=== PATIENT | male | born 1950 | race American Indian/Alaskan Native ===

== ENCOUNTER 2017-07-05 08:08 | Inpatient (IN) | payer MEDICARE ==
[2017-07-05 08:18] VITALS: BMI 20.5
[2017-07-05] MEDS ORDERED: Iohexol 240 (50 ml) PO STA (08:34)
[2017-07-05] MEDS ORDERED: Sodium Chloride 0.9% 1,000 ML IV ONE (08:34)
[2017-07-05] MEDS ORDERED: Iohexol 240 (50 ml) ONE (09:07)
[2017-07-05] MEDS ORDERED: Morphine 4 MG/ML VIAL ONE ×2 (09:08→16:40)
[2017-07-05] MEDS ORDERED: Sodium Chloride 0.9% 1,000 ML ONE (09:08)
[2017-07-05 09:10] LABS: BASO # 0.1 K/uL (0.0-0.2); BASO % 0.9 % (0.0-2.0); EOS % 0.3 % (0.0-4.0); HEMATOCRIT 25.8 % (35.0-51.0); LYMPH # 0.5 K/uL (1.0-4.3); LYMPH % 7.3 % (20.0-40.0); MEAN CELL VOLUME 79.9 fL (80.0-94.0); MEAN CORPUSCULAR HEMOGLOBIN 26.3 pg (27.0-31.0); MEAN CORPUSCULAR HGB CONC 32.9 g/dL (33.0-37.0); MONO # 0.2 K/uL (0.0-0.8); MONO % 3.1 % (0.0-10.0); PLATELET COUNT 391 K/uL (130-400); RED CELL DISTRIBUTION WIDTH 18.5 % (11.5-14.5); WHITE BLOOD COUNT 7.1 K/uL (4.8-10.8)
[2017-07-05 09:10] LABS: RBC URINE 1 /hpf (0-3); URINE BACTERIA RARE (<OCC); URINE BILIRUBIN NEGATIVE (NEGATIVE); URINE BLOOD NEGATIVE (NEGATIVE); URINE COLOR Yellow (YELLOW); URINE GLUCOSE (UA) NORMAL (Normal); URINE KETONE TRACE mg/dL (NEGATIVE); URINE LEUKOCYTE ESTERASE NEG Leu/uL (Negative); URINE PROTEIN NEGATIVE (NEGATIVE); URINE UROBILINOGEN NORMAL mg/dL (0.2-1.0); WBC URINE 1 /hpf (0-5)
[2017-07-05 09:23] LABS: ALKALINE PHOSPHATASE 62 U/L (38-126); ALT/SGPT 31 U/L (21-72); AST/SGOT 16 U/L (17-59); BILIRUBIN,TOTAL 0.6 mg/dL (0.2-1.3); BLOOD UREA NITROGEN 17 mg/dL (9-20); CALCIUM 8.1 mg/dl (8.6-10.4); CARBON DIOXIDE 26 mmol/L (22-30); CHLORIDE 106 mmol/L (98-107); GFR AFRICAN-AMERICAN > 60; GLUCOSE,RANDOM 76 mg/dL (75-110); POTASSIUM 3.7 mmol/L (3.6-5.2); SODIUM 140 mmol/L (132-148); TOTAL PROTEIN 5.8 g/dL (6.3-8.3)
[2017-07-05 10:01] LABS: ALB/GLOB RATIO 1.2 (1.0-2.1)
--- NOTE | 2017-07-05 10:13 | C.PDOC ---
History Of Present Illness 66-year-old male, presents to the emergency department with complaints of increasing abdominal pain over the past week, that is associated with mild nausea. Patient notes he has not taken his blood pressure meds in over two weeks. States he was seen in [facility] for same complaint last week but results are unknown. He denies vomiting, blood in urine or stool, pain with [id number] movement , fevers, or any other associated symptoms. Denies alcohol or drug use. No other complaints at this time. Chief Complaint (Nursing): Abdominal Pain History Per: Patient History/Exam Limitations: no limitations Onset/Duration Of Symptoms: Days Current Symptoms Are (Timing): Still Present Severity: Moderate Past Medical History Reviewed: Historical Data, Nursing Documentation, Vital Signs Vital Signs: Last Vital Signs Temp 98 F 07/05/17 17:31 Pulse 77 07/05/17 17:31 Resp 18 07/05/17 17:31 BP 168/100 H 07/05/17 17:31 Pulse Ox 96 07/05/17 17:31 - Medical History PMH: HTN Family History: States: No Known Family Hx - Social History Hx Alcohol Use: Yes Hx Substance Use: Yes - Immunization History Hx Tetanus Toxoid Vaccination: No Hx Influenza Vaccination: No Hx Pneumococcal Vaccination: No Review Of Systems Except As Marked, All Systems Reviewed And Found Negative. Constitutional: Negative for: Fever, Chills Cardiovascular: Negative for: Chest Pain Respiratory: Negative for: Shortness of Breath Gastrointestinal: Positive for: Nausea, Abdominal Pain. Negative for: Vomiting , Diarrhea, Hematochezia, Hematemesis Genitourinary: Negative for: Hematuria Musculoskeletal: Negative for: Back Pain Physical Exam - Physical Exam Appears: Non-toxic, No Acute Distress Skin: Warm, Dry, No Rash Head: Atraumatic, Normacephalic Eye(s): bilateral: Normal Inspection Nose: Normal Oral Mucosa: Moist Lips: Normal Appearing Neck: Normal ROM Chest: Symmetrical Cardiovascular: Rhythm Regular, No Murmur Respiratory: Normal Breath Sounds, No Accessory Muscle Use Gastrointestinal/Abdominal: Bowel Sounds (Hyperactive), Soft, Tenderness (Left greater than right), No Guarding, No Rebound, Other (midline surgical scar, and left lower quadrant surgical scar, unknown surgeries) Extremity: Normal ROM Neurological/Psych: Oriented x3, Normal Speech ED Course And Treatment - Laboratory Results Result Diagrams: 07/05/17 09:05 07/05/17 09:05 O2 Sat by Pulse Oximetry: 97 (on RA) Pulse Ox Interpretation: Normal - CT Scan/US Abdo/Pelvis CT Other Rad Studies (CT/US): Interpreted By Me, Read By Radiologist, Radiology Report Reviewed CT/US Interpretation: IMPRESSION: Segmental severe right colon wall thickening noted at the splenic flexure and proximal descending colon consistent with colitis. The differential diagnosis includes infection inflammatory or ischemic colitis. Moderately dilated small bowel loops at the left abdomen and partially collapsed small bowel loops at the right abdomen. The oral contrast seen in the small bowel at the left abdomen and in the descending colon. The possibility of small to large bowel fistula is not totally excluded. Correlation with prior study and prior surgical history is suggested. Mildly dilated biliary tree and main pancreatic duct noted. Fullness noted at the pancreatic head without evidence of discrete mass in this study. Mild abdominal and pelvic lymphadenopathy. Moderate anasarca. Medical Decision Making Medical Decision Making: Plan: * Labs * CT Abd/Pel * UA * Morphine, Zofran * Reassess and Disposition Upon receiving CT results patient was administered antibiotics and blood culture was ordered. residential glazier was called, resident covering and aware of the case and will see pt in the ED. Disposition - Disposition Disposition: HOSPITALIZED Disposition Time: 12:50 Condition: FAIR - Clinical Impression Clinical Impression: Colitis - Scribe Statement The provider has reviewed the documentation as recorded by the Scribe (Macarena Koehler) All medical record entries made by the Scribe were at my direction and personally dictated by me. I have reviewed the chart and agree that the record accurately reflects my personal performance of the history, physical exam, medical decision making, and the department course for this patient. I have also personally directed, reviewed, and agree with the discharge instructions and disposition.
[2017-07-05] MEDS ORDERED: Iodixanol 320 MG/ML 100 ML BOTTLE IV ONE (10:40)
[2017-07-05 10:45] LABS: EOSINOPHIL 1 % (0-4); NEUTROPHIL 89 % (50-75); TOTAL CELLS COUNTED 100
--- NOTE | 2017-07-05 12:42 | CT ---
PROCEDURE: CT Abdomen and Pelvis with contrast HISTORY: abd pain- L>R COMPARISON: None. TECHNIQUE: Contrast dose: 100 mL Visipaque 320. Axial and reformatted coronal and sagittal CT images of the abdomen and pelvis were obtained after IV and oral contrast administration. Radiation dose: Total exam DLP = 231.13 mGy-cm. This CT exam was performed using one or more of the following dose reduction techniques: Automated exposure control, adjustment of the mA and/or kV according to patient size, and/or use of iterative reconstruction technique. FINDINGS: LOWER THORAX: Mild bibasilar atelectasis noted. The heart is normal in size. No evidence of pleural effusion. LIVER: The heart is mildly enlarged demonstrate heterogeneous enhancement. The portal vein is patent. GALLBLADDER AND BILE DUCTS: The gallbladder is mildly distended demonstrate mild wall thickening. The common bile duct is mildly dilated. PANCREAS: The main pancreatic duct is mildly dilated. There is mild fullness noted at the pancreatic head without discrete mass in this study. Mild atrophy noted in the pancreatic body and tail. SPLEEN: Unremarkable. ADRENALS: Unremarkable. No mass. KIDNEYS AND URETERS: The kidneys enhance symmetrically without evidence of hydronephrosis. Low-attenuation cystic lesions are noted in both kidneys. VASCULATURE: Unremarkable. No aortic aneurysm. BOWEL: There is severe focal wall thickening noted in the splenic flexure and proximal descending colon consistent with severe colitis. No evidence of high-grade bowel obstruction. The oral contrast is seen in the rectum. There are moderately dilated small bowel loops seen at the left mid and upper abdomen. Postsurgical changes are noted adjacent to the stomach and in the bowel loops at the mid abdomen. No oral contrast seen at the left colon. The possibility of small to large bowel fistula is not totally excluded. Mild to moderate constipation noted at the left colon and proximal portion of the transverse colon. APPENDIX: The appendix is not clearly visualized. No evidence of appendicitis. PERITONEUM: Unremarkable. No free fluid. No free air. LYMPH NODES: There are mildly enlarged mesenteric retroperitoneal and bilateral inguinal lymph nodes noted. BLADDER: [id number] urinary bladder wall thickening. REPRODUCTIVE: Unremarkable. BONES: No acute fracture. OTHER FINDINGS: Diffuse soft tissue edema is noted. IMPRESSION: Segmental severe right colon wall thickening noted at the splenic flexure and proximal descending colon consistent with colitis. The differential diagnosis includes infection inflammatory or ischemic colitis. Moderately dilated small bowel loops at the left abdomen and partially collapsed small bowel loops at the right abdomen. The oral contrast seen in the small bowel at the left abdomen and in the descending colon. The possibility of small to large bowel fistula is not totally excluded. Correlation with prior study and prior surgical history is suggested. Mildly dilated biliary tree and main pancreatic duct noted. Fullness noted at the pancreatic head without evidence of discrete mass in this study. Mild abdominal and pelvic lymphadenopathy. Moderate anasarca.
[2017-07-05 13:16] LABS: VENOUS BLOOD GAS BASE EXCESS 0.3 mmol/L (0.0-2.0); VENOUS BLOOD GAS PCO2 38 mmHg (40-60); VENOUS BLOOD PH 7.42 (7.32-7.43)
[2017-07-05] MEDS ORDERED: metroNIDAZOLE IV 500 mg/100 ml 500 MG/100 ML BAG IVPB STA (13:43)
[2017-07-05] MEDS ORDERED: Ciprofloxacin 400mg/200ml D5W 400 MG/200 ML BAG IVPB STA (13:43)
[2017-07-05] MEDS ORDERED: metroNIDAZOLE IV 500 mg/100 ml 500 MG/100 ML BAG ONE (14:01)
--- NOTE | 2017-07-05 14:22 | CP.PCM.HP ---
<Parvin Goodson - Last Filed: 07/05/17 17:08> History of Present Illness - History of Present Illness History of Present Illness: Medicine Note for Hospital Service - Dr. Vergara CC: Abdominal Pain HPI: 66M with PMHx of HTN and DM presented to the ED with fever, chills, nausea , vomiting, abdominal pain, diarrhea, and melena x 1 week. Patient reports he had an unknown abdominal surgery 1 year ago either at [facility] or [facility]. After questioning him he admitted the surgeries involved a hernia repair, colostomy and reversal of the colostomy. He was admitted to [facility] for 2-3 weeks, 1 month ago. Patient does not know what exams were performed or the results of those examinations. He does not recall having an EGD, colonoscopy , or another surgery. Medical records will be retrieved from [facility]. Denied blurry vision, chest pain, SOB, or urinary symptoms. PMHx: HTN, DM PSHx: abdominal surgery Meds: patient cannot recall name of BP medications All: NKDA SHx: Denied x 3 FHx: Unremarkable Present on Admission - Present on Admission Any Indicators Present on Admission: No Past Patient History - Infectious Disease Hx of Infectious Diseases: None - Past Social History Smoking Status: Light Smoker < 10 Cigarettes Daily - CARDIAC Hx Hypertension: Yes - PULMONARY Hx Respiratory Disorders: No - NEUROLOGICAL Hx Neurological Disorder: No - HEENT Hx HEENT Problems: No - RENAL Hx Chronic Kidney Disease: No - ENDOCRINE/METABOLIC Hx Diabetes Mellitus Type 2: Yes - HEMATOLOGICAL/ONCOLOGICAL Hx Blood Disorders: No - INTEGUMENTARY Hx Dermatological Problems: No - MUSCULOSKELETAL/RHEUMATOLOGICAL Hx Musculoskeletal Disorders: No - GASTROINTESTINAL Hx Gastrointestinal Disorders: No - GENITOURINARY/GYNECOLOGICAL Hx Genitourinary Disorders: No - PSYCHIATRIC Hx Substance Use: Yes - SURGICAL HISTORY Other/Comment: Hernia repair. "they did something to my colon but i cant remember" Meds Allergies/Adverse Reactions: Allergies Allergy/AdvReac Type Severity Reaction Status Date / Time No Known Allergies Allergy Verified 04/09/16 09:50 Physical Exam - Constitutional Appears: Toxic, Unkempt - Head Exam Head Exam: NORMAL INSPECTION, NORMOCEPHALIC - Eye Exam Eye Exam: EOMI, Normal appearance, PERRL Pupil Exam: NORMAL ACCOMODATION - ENT Exam ENT Exam: Mucous Membranes Dry - Respiratory Exam Respiratory Exam: Clear to Auscultation Bilateral. absent: Decreased Breath Sounds, Wheezes - Cardiovascular Exam Cardiovascular Exam: Tachycardia. absent: Systolic Murmur - GI/Abdominal Exam GI & Abdominal Exam: Soft, Tenderness (LLQ RLQ). absent: Distended Additional comments: Midline surgical scar, extending to RLQ - Rectal Exam Rectal Exam: Deferred - Extremities Exam Extremities exam: Positive for: normal inspection, pedal pulses present. Negative for: pedal edema, tenderness - Neurological Exam Neurological exam: Alert, CN II-XII Intact, Oriented x3 - Psychiatric Exam Psychiatric exam: Normal Affect, Normal Mood - Skin Skin Exam: Dry, Intact, Normal Color, Warm Results - Vital Signs Recent Vital Signs: Last Vital Signs Temp 98 F 07/05/17 13:19 Pulse 77 07/05/17 13:19 Resp 18 07/05/17 13:19 BP 162/97 H 07/05/17 13:19 Pulse Ox 99 07/05/17 13:19 - Labs Result Diagrams: 07/05/17 09:05 07/05/17 09:05 Labs: Laboratory Results - last 24 hr 07/05/17 07/05/17 07/05/17 08:58 08:58 09:05 WBC 7.1 RBC 3.22 L Hgb 8.5 L Hct 25.8 L MCV 79.9 L MCH 26.3 L MCHC 32.9 L RDW 18.5 H Plt Count 391 MPV 8.0 Neut % (Auto) 88.4 H Lymph % (Auto) 7.3 L [place] % (Auto) 3.1 Eos % (Auto) 0.3 Baso % (Auto) 0.9 Neut # 6.3 Lymph # 0.5 L [place] # 0.2 Eos # 0.0 Baso # 0.1 Neutrophils % (Manual) 89 H Lymphocytes % (Manual) 8 L Monocytes % (Manual) 2 Eosinophils % (Manual) 1 Platelet Estimate Normal Polychromasia Slight Hypochromasia (manual) Moderate Anisocytosis (manual) Slight Microcytosis (manual) Slight pO2 VBG pH VBG pCO2 VBG HCO3 VBG Total CO2 VBG O2 Sat (Calc) VBG Base Excess VBG Potassium Glucose Lactate Sodium Potassium Chloride Carbon Dioxide Anion Gap BUN Creatinine Est GFR ( Amer) Est GFR (Non-Af Amer) Random Glucose Calcium Total Bilirubin AST ALT Alkaline Phosphatase Total Protein Albumin Globulin Albumin/Globulin Ratio Lipase Venous Blood Potassium Urine Color Yellow Urine Clarity Clear Urine pH 5.0 Ur Specific [place] 1.020 Urine Protein Negative Urine Glucose (UA) Normal Urine Ketones Trace Urine Blood Negative Urine Nitrate Negative Urine Bilirubin Negative Urine Urobilinogen Normal Ur Leukocyte Esterase Neg Urine WBC (Auto) 1 Urine RBC (Auto) 1 Ur Squamous Epith Cells < 1 Urine Bacteria Rare Urine Opiates Screen Positive H Urine Methadone Screen Negative Ur Barbiturates Screen Negative Ur Phencyclidine Scrn Negative Ur Amphetamines Screen Negative U Benzodiazepines Scrn Negative U Oth Cocaine Metabols Negative U Cannabinoids Screen Negative 07/05/17 07/05/17 09:05 13:12 WBC RBC Hgb Hct MCV MCH MCHC RDW Plt Count MPV Neut % (Auto) Lymph % (Auto) [place] % (Auto) Eos % (Auto) Baso % (Auto) Neut # Lymph # [place] # Eos # Baso # Neutrophils % (Manual) Lymphocytes % (Manual) Monocytes % (Manual) Eosinophils % (Manual) Platelet Estimate Polychromasia Hypochromasia (manual) Anisocytosis (manual) Microcytosis (manual) pO2 51 VBG pH 7.42 VBG pCO2 38 L VBG HCO3 24.9 VBG Total CO2 25.8 VBG O2 Sat (Calc) 88.8 H VBG Base Excess 0.3 VBG Potassium 3.8 Glucose 68 L Lactate 0.6 L Sodium 140 138.0 Potassium 3.7 Chloride 106 109.0 H Carbon Dioxide 26 Anion Gap 12 BUN 17 Creatinine 0.9 Est GFR ( Amer) > 60 Est GFR (Non-Af Amer) > 60 Random Glucose 76 Calcium 8.1 L Total Bilirubin 0.6 AST 16 L ALT 31 Alkaline Phosphatase 62 Total Protein 5.8 L Albumin 3.1 L Globulin 2.6 Albumin/Globulin Ratio 1.2 Lipase 23 Venous Blood Potassium 3.8 Urine Color Urine Clarity Urine pH Ur Specific Spring Urine Protein Urine Glucose (UA) Urine Ketones Urine Blood Urine Nitrate Urine Bilirubin Urine Urobilinogen Ur Leukocyte Esterase Urine WBC (Auto) Urine RBC (Auto) Ur Squamous Epith Cells Urine Bacteria Urine Opiates Screen Urine Methadone Screen Ur Barbiturates Screen Ur Phencyclidine Scrn Ur Amphetamines Screen U Benzodiazepines Scrn U Oth Cocaine Metabols U Cannabinoids Screen Assessment & Plan - Assessment and Plan (Free Text) Assessment: 66M with PMHx of HTN and DM presented to the ED with fever, chills, nausea, vomiting, abdominal pain, diarrhea, and melena x 1 week. History of surgeries involved a hernia repair, colostomy and reversal of the colostomy. 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 Red - sigrid appreciated Afebrile, no tachycardia, no leukocytosis with left shift, lactate 0.6 CT Abdomen & Pelvis (07/05): Segmental severe right colon wall thickening noted at the splenic flexure and proximal descending colon consistent with colitis. The differential diagnosis includes infection inflammatory or ischemic colitis. Moderately dilated small bowel loops at the left abdomen and partially collapsed small bowel loops at the right abdomen. The oral contrast seen in the small bowel at the left abdomen and in the descending colon. The possibility of small to large bowel fistula is not totally excluded. Correlation with prior study and prior surgical history is suggested. Mildly dilated biliary tree and main pancreatic duct noted. Fullness noted at the pancreatic head without evidence of discrete mass in this study. Mild abdominal and pelvic lymphadenopathy. Moderate anasarca. Medications: NS @ 100cc/hr Zosyn 4.5 gm Q8H (due to shortage in Pharmacy) and Flagyl Q8H - started Tylenol PRN for fever, Morphine PRN for pain, Zofran PRN for nausea/vomiting Florastor 250mg PO BID Labs: Follow up: blood culture, stool cultures Melena Anemia GI Consulted - Dr. Denny- sigrid appreciated Baseline hemoglobin 2016 was 11.5, currently 8.5 Will be transfused 1 unit of PRBCs Labs: F/U Anemia Workup Stool Occult x3, Stool cultures, CDiff Hx of Abdominal Surgeries As per patient, hernia repair, colostomy and colostomy reversal within the last year Records will be retrieved from [facility] (consent faxed and in chart) Hx HTN Started on Norvasc 5mg PO daily Hydralazine 10mg IVP PRN for SBP >160 hold if HR <60 Labs: F/U Lipid panel Hx DM F/U A1C UDS + for opiates F/U ETOH Prophylactic Measures GI PPX: Protonix 40mg IVP daily DVT PPX: VTE c/i due to possible GI bleed NPO PT/OT DW Kellee Ta DO, PGY-1 <Katharine Vergara - Last Filed: 07/05/17 18:55> Results - Vital Signs Recent Vital Signs: Last Vital Signs Temp 98 F 07/05/17 17:31 Pulse 77 07/05/17 17:31 Resp 18 07/05/17 17:31 BP 168/100 H 07/05/17 17:31 Pulse Ox 97 07/05/17 18:15 - Labs Result Diagrams: 07/05/17 09:05 07/05/17 09:05 Labs: Laboratory Results - last 24 hr 07/05/17 07/05/17 07/05/17 08:58 08:58 09:05 WBC 7.1 RBC 3.22 L Hgb 8.5 L Hct 25.8 L MCV 79.9 L MCH 26.3 L MCHC 32.9 L RDW 18.5 H Plt Count 391 MPV 8.0 Neut % (Auto) 88.4 H Lymph % (Auto) 7.3 L [place] % (Auto) 3.1 Eos % (Auto) 0.3 Baso % (Auto) 0.9 Neut # 6.3 Lymph # 0.5 L [place] # 0.2 Eos # 0.0 Baso # 0.1 Neutrophils % (Manual) 89 H Lymphocytes % (Manual) 8 L Monocytes % (Manual) 2 Eosinophils % (Manual) 1 Platelet Estimate Normal Polychromasia Slight Hypochromasia (manual) Moderate Anisocytosis (manual) Slight Microcytosis (manual) Slight pO2 VBG pH VBG pCO2 VBG HCO3 VBG Total CO2 VBG O2 Sat (Calc) VBG Base Excess VBG Potassium Glucose Lactate Sodium Potassium Chloride Carbon Dioxide Anion Gap BUN Creatinine Est GFR ( Amer) Est GFR (Non-Af Amer) Random Glucose Calcium Iron TIBC % Saturation Ferritin Total Bilirubin AST ALT Alkaline Phosphatase Total Protein Albumin Globulin Albumin/Globulin Ratio Lipase Venous Blood Potassium Urine Color Yellow Urine Clarity Clear Urine pH 5.0 Ur Specific [place] 1.020 Urine Protein Negative Urine Glucose (UA) Normal Urine Ketones Trace Urine Blood Negative Urine Nitrate Negative Urine Bilirubin Negative Urine Urobilinogen Normal Ur Leukocyte Esterase Neg Urine WBC (Auto) 1 Urine RBC (Auto) 1 Ur Squamous Epith Cells < 1 Urine Bacteria Rare Urine Opiates Screen Positive H Urine Methadone Screen Negative Ur Barbiturates Screen Negative Ur Phencyclidine Scrn Negative Ur Amphetamines Screen Negative U Benzodiazepines Scrn Negative U Oth Cocaine Metabols Negative U Cannabinoids Screen Negative Alcohol, Quantitative Blood Type Antibody Screen 07/05/17 07/05/17 07/05/17 09:05 09:05 13:12 WBC RBC Hgb Hct MCV MCH MCHC RDW Plt Count MPV Neut % (Auto) Lymph % (Auto) [place] % (Auto) Eos % (Auto) Baso % (Auto) Neut # Lymph # [place] # Eos # Baso # Neutrophils % (Manual) Lymphocytes % (Manual) Monocytes % (Manual) Eosinophils % (Manual) Platelet Estimate Polychromasia Hypochromasia (manual) Anisocytosis (manual) Microcytosis (manual) pO2 51 VBG pH 7.42 VBG pCO2 38 L VBG HCO3 24.9 VBG Total CO2 25.8 VBG O2 Sat (Calc) 88.8 H VBG Base Excess 0.3 VBG Potassium 3.8 Glucose 68 L Lactate 0.6 L Sodium 140 138.0 Potassium 3.7 Chloride 106 109.0 H Carbon Dioxide 26 Anion Gap 12 BUN 17 Creatinine 0.9 Est GFR ( Amer) > 60 Est GFR (Non-Af Amer) > 60 Random Glucose 76 Calcium 8.1 L Iron TIBC % Saturation Ferritin Total Bilirubin 0.6 AST 16 L ALT 31 Alkaline Phosphatase 62 Total Protein 5.8 L Albumin 3.1 L Globulin 2.6 Albumin/Globulin Ratio 1.2 Lipase 23 Venous Blood Potassium 3.8 Urine Color Urine Clarity Urine pH Ur Specific [place] Urine Protein Urine Glucose (UA) Urine Ketones Urine Blood Urine Nitrate Urine Bilirubin Urine Urobilinogen Ur Leukocyte Esterase Urine WBC (Auto) Urine RBC (Auto) Ur Squamous Epith Cells Urine Bacteria Urine Opiates Screen Urine Methadone Screen Ur Barbiturates Screen Ur Phencyclidine Scrn Ur Amphetamines Screen U Benzodiazepines Scrn U Oth Cocaine Metabols U Cannabinoids Screen Alcohol, Quantitative < 10 Blood Type Antibody Screen 07/05/17 07/05/17 07/05/17 17:30 17:33 17:39 WBC RBC Hgb Hct MCV MCH MCHC RDW Plt Count MPV Neut % (Auto) Lymph % (Auto) [place] % (Auto) Eos % (Auto) Baso % (Auto) Neut # Lymph # [place] # Eos # Baso # Neutrophils % (Manual) Lymphocytes % (Manual) Monocytes % (Manual) Eosinophils % (Manual) Platelet Estimate Polychromasia Hypochromasia (manual) Anisocytosis (manual) Microcytosis (manual) pO2 VBG pH VBG pCO2 VBG HCO3 VBG Total CO2 VBG O2 Sat (Calc) VBG Base Excess VBG Potassium Glucose Lactate Sodium Potassium Chloride Carbon Dioxide Anion Gap BUN Creatinine Est GFR ( Amer) Est GFR (Non-Af Amer) Random Glucose Calcium Iron 24 L TIBC 240 L % Saturation 10 L Ferritin 19.0 Total Bilirubin AST ALT Alkaline Phosphatase Total Protein Albumin Globulin Albumin/Globulin Ratio Lipase Venous Blood Potassium Urine Color Urine Clarity Urine pH Ur Specific [place] Urine Protein Urine Glucose (UA) Urine Ketones Urine Blood Urine Nitrate Urine Bilirubin Urine Urobilinogen Ur Leukocyte Esterase Urine WBC (Auto) Urine RBC (Auto) Ur Squamous Epith Cells Urine Bacteria Urine Opiates Screen Urine Methadone Screen Ur Barbiturates Screen Ur Phencyclidine Scrn Ur Amphetamines Screen U Benzodiazepines Scrn U Oth Cocaine Metabols U Cannabinoids Screen Alcohol, Quantitative Blood Type O POSITIVE Antibody Screen Negative Attending/Attestation - Attestation I have personally seen and examined this patient.: Yes I have fully participated in the care of the patient.: Yes I have reviewed all pertinent clinical information: Yes Notes (Text): This is a 66 years old male came for fever, chills, nausea, vomiting, abdominal pain, diarrhea, and melena x 1 week. Patient reports he had an unknown abdominal surgery 1 year ago either at [facility] or [facility]. He is a poor historian.says don't know for many questions.Requesting pain meds.Lives alone .feeling since he was discharged from [facility]. patient was seen and examined. c/o abdominal pain and diarrhea (Had jose ) Abdomen examination,not distended, abdominal scar left and lower abdominal tenderness,no guarding,no rigidity plan discussed with the resident I gree with the documentation of the assessment and the plan
[2017-07-05] MEDS ORDERED: Ciprofloxacin 400mg/200ml D5W 400 MG/200 ML BAG IVPB ONE (14:41)
[2017-07-05 18:07] LABS: IRON 24 ug/dL (49-181)
--- NOTE | 2017-07-05 18:09 | CP.PCM.CON ---
<Ann Moreno - Last Filed: 07/05/17 18:06> History of Present Illness - History of Present Illness History of Present Illness: GENERAL SURGERY CONSULT FOR DR. RED 66yo M with PMHx of DM, HTN, multiple abdominal surgeries including colostomy and reversal presents to the ED with abdominal pain. The pain began about a week ago and got worse last night. He describes the pain as sharp and states that it is constant. He denies nausea or vomiting. He had a lot of diarrhea with a small amount of associated blood. He has lost about 70-80 pounds over an unknown period of time. He was recently admitted to [facility] but patient is unable to provide any information regarding his diagnosis, what tests were done, etc. Patient is a poor historian. Patient responded to many questions with "I don't know" or "I'm not sure what they did". He states that he has had a colonoscopy before but is unsure when or what they found. PMHx: HTN, DM (per charge but patient denied), recent lice - treated per pt Surgeries: left open inguinal hernia repair, ex lap with unknown bowel surgery & colostomy at [facility], colostomy reversal at [facility] [place] Allergies: none Social history: occasional etoh, smokes 10 cigarettes a month, denies illicit drug use but charge states substance abuse Review of Systems - Review of Systems All systems: reviewed and no additional remarkable complaints except (as per hpi ) Past Patient History - Infectious Disease Hx of Infectious Diseases: None - Past Social History Smoking Status: Light Smoker < 10 Cigarettes Daily - CARDIAC Hx Hypertension: Yes - PULMONARY Hx Respiratory Disorders: No - NEUROLOGICAL Hx Neurological Disorder: No - HEENT Hx HEENT Problems: No - RENAL Hx Chronic Kidney Disease: No - ENDOCRINE/METABOLIC Hx Diabetes Mellitus Type 2: Yes - HEMATOLOGICAL/ONCOLOGICAL Hx Blood Disorders: No - INTEGUMENTARY Hx Dermatological Problems: No - MUSCULOSKELETAL/RHEUMATOLOGICAL Hx Musculoskeletal Disorders: No - GASTROINTESTINAL Hx Gastrointestinal Disorders: No - GENITOURINARY/GYNECOLOGICAL Hx Genitourinary Disorders: No - PSYCHIATRIC Hx Substance Use: Yes - SURGICAL HISTORY Other/Comment: Hernia repair. "they did something to my colon but i cant remember" Meds Allergies/Adverse Reactions: Allergies Allergy/AdvReac Type Severity Reaction Status Date / Time No Known Allergies Allergy Verified 04/09/16 09:50 - Medications Medications: Current Medications Acetaminophen (Tylenol 325mg Tab) 650 mg PO Q6 PRN PRN Reason: Fever >100.4 F Amlodipine Besylate (Norvasc) 5 mg PO DAILY COUNT INCLUDES [facility] Hydralazine HCl (Apresoline) 10 mg IVP Q6H PRN PRN Reason: Systolic Blood Pressure > 160 Sodium Chloride (Sodium Chloride 0.9%) 1,000 mls @ 100 mls/hr IV .Q10H ONE Stop: 07/05/17 18:33 Last Admin: 07/05/17 09:17 Dose: 100 mls/hr Sodium Chloride (Sodium Chloride 0.9%) 1,000 mls @ 100 mls/hr IV .Q10H [facility] Metronidazole (Flagyl) 500 mg in 100 mls @ 100 mls/hr IVPB Q8 [facility] Piperacillin Sod/Tazobactam Sod (Zosyn 4.5 Gm Iv Premix) 4.5 gm in 100 mls @ 25 mls/hr IVPB Q8H [facility] Morphine Sulfate (Morphine) 2 mg IVP Q4H PRN PRN Reason: Pain, severe (8-10) Last Admin: 07/05/17 16:50 Dose: 2 mg Morphine Sulfate (Morphine) 1 mg IVP Q4H PRN PRN Reason: Pain, moderate (4-7) Ondansetron HCl (Zofran Inj) 4 mg IVP Q6 PRN PRN Reason: Nausea/Vomiting Pantoprazole Sodium (Protonix Inj) 40 mg IVP DAILY [facility] Saccharomyces Boulardii (Florastor) 250 mg PO BID COUNT INCLUDES [facility] Physical Exam - Constitutional Appears: Non-toxic, No Acute Distress, Unkempt - Head Exam Head Exam: ATRAUMATIC, NORMAL INSPECTION - Eye Exam Eye Exam: EOMI, Normal appearance - Respiratory Exam Respiratory Exam: NORMAL BREATHING PATTERN. absent: Respiratory Distress - Cardiovascular Exam Cardiovascular Exam: +S1, +S2 - GI/Abdominal Exam GI & Abdominal Exam: Firm, Tenderness (diffusely tender, more so in LLQ). absent: Rigid Additional comments: midline surgical scar - healing well Colostomy scar - well healed Open left inguinal hernia scar - well healed - Extremities Exam Extremities exam: Negative for: calf tenderness, pedal edema - Neurological Exam Neurological exam: Alert, Oriented x3 - Psychiatric Exam Psychiatric exam: Normal Affect, Normal Mood - Skin Skin Exam: Dry, Normal Color, Warm Results - Vital Signs Recent Vital Signs: Last Vital Signs Temp 98 F 07/05/17 17:31 Pulse 77 07/05/17 17:31 Resp 18 07/05/17 17:31 BP 168/100 H 07/05/17 17:31 Pulse Ox 96 07/05/17 17:31 - Labs Result Diagrams: 07/05/17 09:05 07/05/17 09:05 Labs: Laboratory Results - last 24 hr 07/05/17 07/05/17 07/05/17 08:58 08:58 09:05 WBC 7.1 RBC 3.22 L Hgb 8.5 L Hct 25.8 L MCV 79.9 L MCH 26.3 L MCHC 32.9 L RDW 18.5 H Plt Count 391 MPV 8.0 Neut % (Auto) 88.4 H Lymph % (Auto) 7.3 L [place] % (Auto) 3.1 Eos % (Auto) 0.3 Baso % (Auto) 0.9 Neut # 6.3 Lymph # 0.5 L [place] # 0.2 Eos # 0.0 Baso # 0.1 Neutrophils % (Manual) 89 H Lymphocytes % (Manual) 8 L Monocytes % (Manual) 2 Eosinophils % (Manual) 1 Platelet Estimate Normal Polychromasia Slight Hypochromasia (manual) Moderate Anisocytosis (manual) Slight Microcytosis (manual) Slight pO2 VBG pH VBG pCO2 VBG HCO3 VBG Total CO2 VBG O2 Sat (Calc) VBG Base Excess VBG Potassium Glucose Lactate Sodium Potassium Chloride Carbon Dioxide Anion Gap BUN Creatinine Est GFR ( Amer) Est GFR (Non-Af Amer) Random Glucose Calcium Total Bilirubin AST ALT Alkaline Phosphatase Total Protein Albumin Globulin Albumin/Globulin Ratio Lipase Venous Blood Potassium Urine Color Yellow Urine Clarity Clear Urine pH 5.0 Ur Specific [place] 1.020 Urine Protein Negative Urine Glucose (UA) Normal Urine Ketones Trace Urine Blood Negative Urine Nitrate Negative Urine Bilirubin Negative Urine Urobilinogen Normal Ur Leukocyte Esterase Neg Urine WBC (Auto) 1 Urine RBC (Auto) 1 Ur Squamous Epith Cells < 1 Urine Bacteria Rare Urine Opiates Screen Positive H Urine Methadone Screen Negative Ur Barbiturates Screen Negative Ur Phencyclidine Scrn Negative Ur Amphetamines Screen Negative U Benzodiazepines Scrn Negative U Oth Cocaine Metabols Negative U Cannabinoids Screen Negative Alcohol, Quantitative 07/05/17 07/05/17 07/05/17 09:05 09:05 13:12 WBC RBC Hgb Hct MCV MCH MCHC RDW Plt Count MPV Neut % (Auto) Lymph % (Auto) [place] % (Auto) Eos % (Auto) Baso % (Auto) Neut # Lymph # [place] # Eos # Baso # Neutrophils % (Manual) Lymphocytes % (Manual) Monocytes % (Manual) Eosinophils % (Manual) Platelet Estimate Polychromasia Hypochromasia (manual) Anisocytosis (manual) Microcytosis (manual) pO2 51 VBG pH 7.42 VBG pCO2 38 L VBG HCO3 24.9 VBG Total CO2 25.8 VBG O2 Sat (Calc) 88.8 H VBG Base Excess 0.3 VBG Potassium 3.8 Glucose 68 L Lactate 0.6 L Sodium 140 138.0 Potassium 3.7 Chloride 106 109.0 H Carbon Dioxide 26 Anion Gap 12 BUN 17 Creatinine 0.9 Est GFR ( Amer) > 60 Est GFR (Non-Af Amer) > 60 Random Glucose 76 Calcium 8.1 L Total Bilirubin 0.6 AST 16 L ALT 31 Alkaline Phosphatase 62 Total Protein 5.8 L Albumin 3.1 L Globulin 2.6 Albumin/Globulin Ratio 1.2 Lipase 23 Venous Blood Potassium 3.8 Urine Color Urine Clarity Urine pH Ur Specific [place] Urine Protein Urine Glucose (UA) Urine Ketones Urine Blood Urine Nitrate Urine Bilirubin Urine Urobilinogen Ur Leukocyte Esterase Urine WBC (Auto) Urine RBC (Auto) Ur Squamous Epith Cells Urine Bacteria Urine Opiates Screen Urine Methadone Screen Ur Barbiturates Screen Ur Phencyclidine Scrn Ur Amphetamines Screen U Benzodiazepines Scrn U Oth Cocaine Metabols U Cannabinoids Screen Alcohol, Quantitative < 10 Assessment & Plan - Assessment and Plan (Free Text) Assessment: 66yo M with PMHx of DM, HTN, multiple abdominal surgeries including colostomy and reversal presents to the ED with abdominal pain. - Afebrile, Hypertensive - No leukocytosis - Anemia, Hgb 8.5, being transfused 1 PRBC by medicine team, GI consulted - Lactate WNL - Tox screen: + opiates - CT: segmental severe right colon wall thickening noted at splenic flexure & proximal descending colon - consistent w/ colitis. Moderately dilated small bowel loops at the left abdomen & partially collapsed small bowel loops at right abdomen. Oral contrast seen in the small bowel at left abdomen and in the descending colon. Possibility of small to large bowel fistula is not totally excluded. Mildly dilated biliary tree and main pancreatic duct. Fullness of pancreatic head w/o evidence of discrete mass. Mild abdominal and pelvic lymphadneopathy. - NPO, bowel rest - IV fluids - IV Antibiotics - Serial abdominal exams - Will FU AM labs - Will FU stool studies, Cdiff - Obtain records from [facility] regarding patient's previous surgeries (consent faxed and in chart) - Discussed plan with Dr. Teofilo Moreno PGY-3 <Francisco J Red - Last Filed: 07/06/17 16:17> Meds - Medications Medications: Current Medications Acetaminophen (Tylenol 325mg Tab) 650 mg PO Q6 PRN PRN Reason: Fever >100.4 F Amlodipine Besylate (Norvasc) 5 mg PO DAILY COUNT INCLUDES [facility] Last Admin: 07/06/17 11:04 Dose: 5 mg Bisacodyl (Dulcolax) 10 mg PO ONCE ONE Stop: 07/06/17 18:01 Hydralazine HCl (Apresoline) 10 mg IVP Q6H PRN PRN Reason: Systolic Blood Pressure > 160 Last Admin: 07/06/17 01:04 Dose: 10 mg Sodium Chloride (Sodium Chloride 0.9%) 1,000 mls @ 100 mls/hr IV .Q10H COUNT INCLUDES [facility] Last Admin: 07/06/17 11:50 Dose: Not Given Metronidazole (Flagyl) 500 mg in 100 mls @ 100 mls/hr IVPB Q8 COUNT INCLUDES [facility] Last Admin: 07/06/17 14:57 Dose: 100 mls/hr Ciprofloxacin (Cipro 400mg/200ml Dsw) 400 mg in 200 mls @ 133 mls/hr IVPB Q12H COUNT INCLUDES [facility] Last Admin: 07/06/17 14:57 Dose: 133 mls/hr Morphine Sulfate (Morphine) 2 mg IVP Q4H PRN PRN Reason: Pain, severe (8-10) Last Admin: 07/06/17 05:25 Dose: 2 mg Morphine Sulfate (Morphine) 1 mg IVP Q4H PRN PRN Reason: Pain, moderate (4-7) Last Admin: 07/06/17 11:04 Dose: 1 mg Ondansetron HCl (Zofran Inj) 4 mg IVP Q6 PRN PRN Reason: Nausea/Vomiting Pantoprazole Sodium (Protonix Inj) 40 mg IVP DAILY COUNT INCLUDES [facility] Last Admin: 07/06/17 11:04 Dose: 40 mg Polyethylene Glycol/Electrolytes (Golytely) 2,000 ml PO ONCE ONE Stop: 07/06/17 19:01 Polyethylene Glycol/Electrolytes (Golytely) 2,000 ml PO ONCE ONE Stop: 07/07/17 06:01 Saccharomyces Boulardii (Florastor) 250 mg PO BID [facility] Last Admin: 07/06/17 11:05 Dose: 250 mg Results - Vital Signs Recent Vital Signs: Last Vital Signs Temp 98.1 F 07/06/17 16:00 Pulse 73 07/06/17 16:00 Resp 20 07/06/17 16:00 BP 173/91 H 07/06/17 16:00 Pulse Ox 99 07/06/17 16:00 - Labs Result Diagrams: 07/06/17 06:00 07/06/17 06:00 Labs: Laboratory Results - last 24 hr 07/05/17 07/05/17 07/05/17 09:05 17:30 17:33 WBC RBC Hgb Hct MCV MCH MCHC RDW Plt Count MPV Neut % (Auto) Lymph % (Auto) [place] % (Auto) Eos % (Auto) Baso % (Auto) Neut # Lymph # [place] # Eos # Baso # Neutrophils % (Manual) Band Neutrophils % Lymphocytes % (Manual) Monocytes % (Manual) Platelet Estimate Hypochromasia (manual) Poikilocytosis (manual Anisocytosis (manual) Target Cells PT INR APTT Sodium Potassium Chloride Carbon Dioxide Anion Gap BUN Creatinine Est GFR ( Amer) Est GFR (Non-Af Amer) Random Glucose Hemoglobin A1c Calcium Phosphorus Magnesium Iron TIBC % Saturation Ferritin 19.0 Total Bilirubin AST ALT Alkaline Phosphatase Total Protein Albumin Globulin Albumin/Globulin Ratio Triglycerides Cholesterol LDL Cholesterol Direct HDL Cholesterol Vitamin B12 501 Folate > 20.0 Stool Leukocytes, Qual Alcohol, Quantitative < 10 C. difficile Ag & Toxin Blood Type O POSITIVE Antibody Screen Negative 07/05/17 07/05/17 07/06/17 17:39 19:13 06:00 WBC 6.3 RBC 3.72 L Hgb 9.7 L Hct 29.8 L MCV 80.1 MCH 26.1 L MCHC 32.6 L RDW 18.3 H Plt Count 354 MPV 7.9 Neut % (Auto) 89.5 H Lymph % (Auto) 5.5 L [place] % (Auto) 4.3 Eos % (Auto) 0.1 Baso % (Auto) 0.6 Neut # 5.6 Lymph # 0.3 L [place] # 0.3 Eos # 0.0 Baso # 0.0 Neutrophils % (Manual) 84 H Band Neutrophils % 3 H Lymphocytes % (Manual) 9 L Monocytes % (Manual) 4 Platelet Estimate Normal Hypochromasia (manual) Slight Poikilocytosis (manual Slight Anisocytosis (manual) Slight Target Cells Slight PT INR APTT Sodium Potassium Chloride Carbon Dioxide Anion Gap BUN Creatinine Est GFR ( Amer) Est GFR (Non-Af Amer) Random Glucose Hemoglobin A1c Calcium Phosphorus Magnesium Iron 24 L TIBC 240 L % Saturation 10 L Ferritin Total Bilirubin AST ALT Alkaline Phosphatase Total Protein Albumin Globulin Albumin/Globulin Ratio Triglycerides Cholesterol LDL Cholesterol Direct HDL Cholesterol Vitamin B12 Folate Stool Leukocytes, Qual Negative Alcohol, Quantitative C. difficile Ag & Toxin Negative Blood Type Antibody Screen 07/06/17 07/06/17 07/06/17 06:00 06:00 06:00 WBC RBC Hgb Hct MCV MCH MCHC RDW Plt Count MPV Neut % (Auto) Lymph % (Auto) [place] % (Auto) Eos % (Auto) Baso % (Auto) Neut # Lymph # [place] # Eos # Baso # Neutrophils % (Manual) Band Neutrophils % Lymphocytes % (Manual) Monocytes % (Manual) Platelet Estimate Hypochromasia (manual) Poikilocytosis (manual Anisocytosis (manual) Target Cells PT 12.4 H INR 1.1 APTT 36 H Sodium 132 Potassium 3.6 Chloride 103 Carbon Dioxide 25 Anion Gap 8 L BUN 15 Creatinine 0.8 Est GFR ( Amer) > 60 Est GFR (Non-Af Amer) > 60 Random Glucose 80 Hemoglobin A1c 5.6 Calcium 7.8 L Phosphorus 2.9 Magnesium 1.5 L Iron TIBC % Saturation Ferritin Total Bilirubin 0.7 AST 16 L ALT 32 Alkaline Phosphatase 61 Total Protein 5.3 L Albumin 2.7 L Globulin 2.6 Albumin/Globulin Ratio 1.1 Triglycerides 56 Cholesterol 142 LDL Cholesterol Direct 49 HDL Cholesterol 69 Vitamin B12 Folate Stool Leukocytes, Qual Alcohol, Quantitative C. difficile Ag & Toxin Blood Type Antibody Screen Attending/Attestation - Attestation I have personally seen and examined this patient.: Yes I have fully participated in the care of the patient.: Yes I have reviewed all pertinent clinical information: Yes Notes (Text): Pt was seen and examined at bedside Agree with above note and assessment Pt with Abdominal pain and tenderness Labs and radiology reviewed Ass: Recurrent Colitis Plan : C.w IV antibiotics Get records from [facility] [place] CBC, BMP Plan d.w pt in detail Risk and benefit explained in detaili.
[2017-07-05] MEDS: Sodium Chloride 0.9% 1,000 ML IV SCH (18:45)
[2017-07-05] MEDS ORDERED: Piperacill/Tazo 4.5gm in Dex 4.5 GM/100 ML BAG IVPB SCH (20:00)
[2017-07-05] MEDS ORDERED: Ciprofloxacin 400mg/200ml D5W 400 MG/200 ML BAG IVPB SCH (20:00)
[2017-07-05 20:01] LABS: C DIFF TOXIN A B NEGATIVE (NEGATIVE)
[2017-07-05 20:18] LABS: FOLATE > 20.0 ng/mL
[2017-07-05 20:30] LABS: FECAL LEUKOCYTES NEGATIVE (NEGATIVE)
[2017-07-05] MEDS: metroNIDAZOLE IV 500 mg/100 ml 500 MG/100 ML BAG IVPB SCH (22:23)
[2017-07-05] MEDS: Saccharomyces Boulardi 250 mg Cap PO SCH (22:27)
[2017-07-06] MEDS: Sodium Chloride 0.9% 1,000 ML IV SCH ×3 (02:45→21:36)
[2017-07-06] MEDS: Ciprofloxacin 400mg/200ml D5W 400 MG/200 ML BAG IVPB SCH ×2 (03:09→14:57)
[2017-07-06] MEDS: metroNIDAZOLE IV 500 mg/100 ml 500 MG/100 ML BAG IVPB SCH ×3 (05:20→21:35)
[2017-07-06 06:22] LABS: BASO % 0.6 % (0.0-2.0); EOS % 0.1 % (0.0-4.0); HEMATOCRIT 29.8 % (35.0-51.0); LYMPH # 0.3 K/uL (1.0-4.3); LYMPH % 5.5 % (20.0-40.0); MEAN CELL VOLUME 80.1 fL (80.0-94.0); MEAN CORPUSCULAR HEMOGLOBIN 26.1 pg (27.0-31.0); MEAN CORPUSCULAR HGB CONC 32.6 g/dL (33.0-37.0); MEAN PLATELET VOLUME 7.9 fL (7.2-11.7); MONO # 0.3 K/uL (0.0-0.8); MONO % 4.3 % (0.0-10.0); NRBC % 0.1 % (0.0-2.0); PLATELET COUNT 354 K/uL (130-400); RED CELL DISTRIBUTION WIDTH 18.3 % (11.5-14.5); WHITE BLOOD COUNT 6.3 K/uL (4.8-10.8)
[2017-07-06 06:40] LABS: INR 1.1
[2017-07-06 07:37] LABS: ALKALINE PHOSPHATASE 61 U/L (38-126); ALT/SGPT 32 U/L (21-72); AST/SGOT 16 U/L (17-59); BILIRUBIN,TOTAL 0.7 mg/dL (0.2-1.3); BLOOD UREA NITROGEN 15 mg/dL (9-20); CALCIUM 7.8 mg/dl (8.6-10.4); CARBON DIOXIDE 25 mmol/L (22-30); CHLORIDE 103 mmol/L (98-107); CHOLESTEROL 142 mg/dL (0-199); GFR AFRICAN-AMERICAN > 60; GLUCOSE,RANDOM 80 mg/dL (75-110); MAGNESIUM 1.5 mg/dL (1.6-2.3); PHOSPHOROUS 2.9 mg/dL (2.5-4.5); POTASSIUM 3.6 mmol/L (3.6-5.2); SODIUM 132 mmol/L (132-148); TOTAL PROTEIN 5.3 g/dL (6.3-8.3)
[2017-07-06 07:42] LABS: ALB/GLOB RATIO 1.1 (1.0-2.1)
[2017-07-06 09:30] LABS: NEUTROPHIL 84 % (50-75); TOTAL CELLS COUNTED 100
--- NOTE | 2017-07-06 10:54 | CP.PCM.PN ---
<William Adams - Last Filed: 07/06/17 10:50> Subjective - Date & Time of Evaluation Date of Evaluation: 07/06/17 Time of Evaluation: 06:45 - Subjective Subjective: Gen Sx: Dr Red Pt S&E. NAEO. Resting comfortably. Reports pain has essentially resolved, present with deep palpation. Passing flatus and having BMs. Denies N/V, F/C. States he is very hungry. Per pt; surgical history is that of left inguinal hernia complicated by colon perforation requiring ex-lap with colostomy and then subsequent reversal. Objective - Vital Signs/Intake and Output Vital Signs (last 24 hours): Temp Pulse Resp BP Pulse Ox 98 F 86 20 153/83 H 99 07/06/17 08:00 07/06/17 08:00 07/06/17 08:00 07/06/17 08:00 07/06/17 08:00 Intake and Output: 07/06/17 07/06/17 06:59 18:59 Intake Total 1550 Output Total 300 Balance 1250 - Medications Medications: Current Medications Acetaminophen (Tylenol 325mg Tab) 650 mg PO Q6 PRN PRN Reason: Fever >100.4 F Amlodipine Besylate (Norvasc) 5 mg PO DAILY [facility] Hydralazine HCl (Apresoline) 10 mg IVP Q6H PRN PRN Reason: Systolic Blood Pressure > 160 Last Admin: 07/06/17 01:04 Dose: 10 mg Sodium Chloride (Sodium Chloride 0.9%) 1,000 mls @ 100 mls/hr IV .Q10H [facility] Last Admin: 07/06/17 02:45 Dose: Not Given Metronidazole (Flagyl) 500 mg in 100 mls @ 100 mls/hr IVPB Q8 [facility] Last Admin: 07/06/17 05:20 Dose: 100 mls/hr Ciprofloxacin (Cipro 400mg/200ml Dsw) 400 mg in 200 mls @ 133 mls/hr IVPB Q12H [facility] Last Admin: 07/06/17 03:09 Dose: 133 mls/hr Morphine Sulfate (Morphine) 2 mg IVP Q4H PRN PRN Reason: Pain, severe (8-10) Last Admin: 07/06/17 05:25 Dose: 2 mg Morphine Sulfate (Morphine) 1 mg IVP Q4H PRN PRN Reason: Pain, moderate (4-7) Ondansetron HCl (Zofran Inj) 4 mg IVP Q6 PRN PRN Reason: Nausea/Vomiting Pantoprazole Sodium (Protonix Inj) 40 mg IVP DAILY [facility] Saccharomyces Boulardii (Florastor) 250 mg PO BID [facility] Last Admin: 07/05/17 22:27 Dose: 250 mg - Labs Labs: 07/06/17 06:00 07/06/17 06:00 PT 12.4 SECONDS (9.7-12.2) H 07/06/17 06:00 INR 1.1 07/06/17 06:00 APTT 36 SECONDS (21-34) H 07/06/17 06:00 - Constitutional Appears: Non-toxic - ENT Exam ENT Exam: Mucous Membranes Moist - Respiratory Exam Respiratory Exam: absent: Accessory Muscle Use, Respiratory Distress - Cardiovascular Exam Cardiovascular Exam: REGULAR RHYTHM. absent: Tachycardia - GI/Abdominal Exam GI & Abdominal Exam: Soft, Tenderness (minimal in LLQ), Hernia. absent: Distended, Firm, Guarding, Rigid, Mass Additional comments: midline incision c/d/i - Neurological Exam Neurological Exam: Alert, Awake, Oriented x3 - Psychiatric Exam Psychiatric exam: Normal Affect, Normal Mood Assessment and Plan - Assessment and Plan (Free Text) Assessment: 66M with colitis Plan: cont IV abx start CLD cont to trend labs possible D/C tomorrow pending diet tolerance pt should follow up with original surgeon at [facility] following d/c d/w Dr Teofilo Adams, PGY3 <Francisco J Red B - Last Filed: 07/06/17 16:08> Objective - Vital Signs/Intake and Output Vital Signs (last 24 hours): Temp Pulse Resp BP Pulse Ox 98 F 86 20 153/83 H 99 07/06/17 08:00 07/06/17 08:00 07/06/17 08:00 07/06/17 08:00 07/06/17 08:00 Intake and Output: 07/06/17 07/06/17 06:59 18:59 Intake Total 1550 Output Total 300 Balance 1250 - Medications Medications: Current Medications Acetaminophen (Tylenol 325mg Tab) 650 mg PO Q6 PRN PRN Reason: Fever >100.4 F Amlodipine Besylate (Norvasc) 5 mg PO DAILY [facility] Last Admin: 07/06/17 11:04 Dose: 5 mg Bisacodyl (Dulcolax) 10 mg PO ONCE ONE Stop: 07/06/17 18:01 Hydralazine HCl (Apresoline) 10 mg IVP Q6H PRN PRN Reason: Systolic Blood Pressure > 160 Last Admin: 07/06/17 01:04 Dose: 10 mg Sodium Chloride (Sodium Chloride 0.9%) 1,000 mls @ 100 mls/hr IV .Q10H [facility] Last Admin: 07/06/17 11:50 Dose: Not Given Metronidazole (Flagyl) 500 mg in 100 mls @ 100 mls/hr IVPB Q8 [facility] Last Admin: 07/06/17 14:57 Dose: 100 mls/hr Ciprofloxacin (Cipro 400mg/200ml Dsw) 400 mg in 200 mls @ 133 mls/hr IVPB Q12H [facility] Last Admin: 07/06/17 14:57 Dose: 133 mls/hr Morphine Sulfate (Morphine) 2 mg IVP Q4H PRN PRN Reason: Pain, severe (8-10) Last Admin: 07/06/17 05:25 Dose: 2 mg Morphine Sulfate (Morphine) 1 mg IVP Q4H PRN PRN Reason: Pain, moderate (4-7) Last Admin: 07/06/17 11:04 Dose: 1 mg Ondansetron HCl (Zofran Inj) 4 mg IVP Q6 PRN PRN Reason: Nausea/Vomiting Pantoprazole Sodium (Protonix Inj) 40 mg IVP DAILY [facility] Last Admin: 07/06/17 11:04 Dose: 40 mg Polyethylene Glycol/Electrolytes (Golytely) 2,000 ml PO ONCE ONE Stop: 07/06/17 19:01 Polyethylene Glycol/Electrolytes (Golytely) 2,000 ml PO ONCE ONE Stop: 07/07/17 06:01 Saccharomyces Boulardii (Florastor) 250 mg PO BID [facility] Last Admin: 07/06/17 11:05 Dose: 250 mg - Labs Labs: 07/06/17 06:00 07/06/17 06:00 PT 12.4 SECONDS (9.7-12.2) H 07/06/17 06:00 INR 1.1 07/06/17 06:00 APTT 36 SECONDS (21-34) H 07/06/17 06:00 Attending/Attestation - Attestation I have personally seen and examined this patient.: Yes I have fully participated in the care of the patient.: Yes I have reviewed all pertinent clinical information, including history, physical exam and plan: Yes Notes (Text): Pt was seen and examined at bedside Agree with above note and assessment Pt is improving clinically Advance diet to full liquid diet continue with current mx IV antibiotics Plan d.w pt in detail Risk and benefit explained in detail.
[2017-07-06] MEDS: Saccharomyces Boulardi 250 mg Cap PO SCH ×2 (11:05→17:40)
--- NOTE | 2017-07-06 14:57 | CP.PCM.CON ---
History of Present Illness - History of Present Illness History of Present Illness: CC: Colitis HPI: GI service consult requested on this 66 year old man admitted with abdominal pain and abnormal CT findings of colitis and possible fistula. Patient himself is a very poor historian. Patient states he was in [facility] last month fr abdominal pain and had "tests" but that is all he can tell me. We are waiting for records from [facility] [place]. Patient found to be very anemic and received transfusion of PRBC since then. He states he's been transfused in the past. He had dark stools in the recent past but no further details are obtainable. He does not recall having EGD, and he thinks he had colonoscopy "a long time ago". Today the abdominal pain is improved. Patient also notes diarrhea. Stool for C Diff toxin is normal. Iron studies are consistent with anemia of chronic disease. Patient describes prior history of hernia repair comlicated by Laprotomy and colostomy, followed by reversal one year ago at [facility] [place]. Review of Systems - Constitutional Constitutional: absent: Chills, Fever - EENT Eyes: absent: Change in Vision Ears: absent: Ear Pain - Cardiovascular Cardiovascular: absent: Chest Pain - Respiratory Respiratory: absent: Dyspnea - Gastrointestinal Gastrointestinal: Abdominal Pain, Loose Stools - Genitourinary Genitourinary: absent: Dysuria Past Patient History - Infectious Disease Hx of Infectious Diseases: None - Past Medical History & Family History Past Medical History?: Yes - Past Social History Smoking Status: Current Some Days Smoker - CARDIAC Hx Hypertension: Yes - PULMONARY Hx Respiratory Disorders: No - NEUROLOGICAL Hx Neurological Disorder: No - HEENT Hx HEENT Problems: No - RENAL Hx Chronic Kidney Disease: No - ENDOCRINE/METABOLIC Hx Endocrine Disorders: No - HEMATOLOGICAL/ONCOLOGICAL Hx Blood Disorders: No - INTEGUMENTARY Hx Dermatological Problems: No - MUSCULOSKELETAL/RHEUMATOLOGICAL Hx Falls: No - GASTROINTESTINAL Hx Gastrointestinal Disorders: No - GENITOURINARY/GYNECOLOGICAL Hx Genitourinary Disorders: No - PSYCHIATRIC Hx Psychophysiologic Disorder: Yes Hx Substance Use: No (pt. denies) - SURGICAL HISTORY Hx Surgeries: No Other/Comment: Hernia repair. "they did something to my colon but i cant remember" - ANESTHESIA Hx Anesthesia: No Hx Anesthesia Reactions: No Hx Malignant Hyperthermia: No Has any member of the family had a problem w/ anesthesia?: No Meds Allergies/Adverse Reactions: Allergies Allergy/AdvReac Type Severity Reaction Status Date / Time No Known Allergies Allergy Verified 04/09/16 09:50 - Medications Medications: Current Medications Acetaminophen (Tylenol 325mg Tab) 650 mg PO Q6 PRN PRN Reason: Fever >100.4 F Amlodipine Besylate (Norvasc) 5 mg PO DAILY [facility] Last Admin: 07/06/17 11:04 Dose: 5 mg Hydralazine HCl (Apresoline) 10 mg IVP Q6H PRN PRN Reason: Systolic Blood Pressure > 160 Last Admin: 07/06/17 01:04 Dose: 10 mg Sodium Chloride (Sodium Chloride 0.9%) 1,000 mls @ 100 mls/hr IV .Q10H [facility] Last Admin: 07/06/17 11:50 Dose: Not Given Metronidazole (Flagyl) 500 mg in 100 mls @ 100 mls/hr IVPB Q8 [facility] Last Admin: 07/06/17 05:20 Dose: 100 mls/hr Ciprofloxacin (Cipro 400mg/200ml Dsw) 400 mg in 200 mls @ 133 mls/hr IVPB Q12H [facility] Last Admin: 07/06/17 03:09 Dose: 133 mls/hr Morphine Sulfate (Morphine) 2 mg IVP Q4H PRN PRN Reason: Pain, severe (8-10) Last Admin: 07/06/17 05:25 Dose: 2 mg Morphine Sulfate (Morphine) 1 mg IVP Q4H PRN PRN Reason: Pain, moderate (4-7) Last Admin: 07/06/17 11:04 Dose: 1 mg Ondansetron HCl (Zofran Inj) 4 mg IVP Q6 PRN PRN Reason: Nausea/Vomiting Pantoprazole Sodium (Protonix Inj) 40 mg IVP DAILY [facility] Last Admin: 07/06/17 11:04 Dose: 40 mg Saccharomyces Boulardii (Florastor) 250 mg PO BID [facility] Last Admin: 07/06/17 11:05 Dose: 250 mg Physical Exam - Constitutional Appears: No Acute Distress, Chronically Ill - Head Exam Head Exam: NORMOCEPHALIC - Eye Exam Eye Exam: absent: Scleral icterus - ENT Exam ENT Exam: Normal Exam - Neck Exam Neck exam: Positive for: Normal Inspection - Respiratory Exam Respiratory Exam: Clear to Auscultation Bilateral - Cardiovascular Exam Cardiovascular Exam: REGULAR RHYTHM - GI/Abdominal Exam GI & Abdominal Exam: Soft, Tenderness. absent: Mass Additional comments: Surgical scars and mild left sided tenderness - Rectal Exam Rectal Exam: Deferred Results - Vital Signs Recent Vital Signs: Last Vital Signs Temp 98 F 07/06/17 08:00 Pulse 86 07/06/17 08:00 Resp 20 07/06/17 08:00 BP 153/83 H 07/06/17 08:00 Pulse Ox 99 07/06/17 08:00 - Labs Result Diagrams: 07/06/17 06:00 07/06/17 06:00 Labs: Laboratory Results - last 24 hr 07/05/17 07/05/17 07/05/17 09:05 17:30 17:33 WBC RBC Hgb Hct MCV MCH MCHC RDW Plt Count MPV Neut % (Auto) Lymph % (Auto) Butts % (Auto) Eos % (Auto) Baso % (Auto) Neut # Lymph # Butts # Eos # Baso # Neutrophils % (Manual) Band Neutrophils % Lymphocytes % (Manual) Monocytes % (Manual) Platelet Estimate Hypochromasia (manual) Poikilocytosis (manual Anisocytosis (manual) Target Cells PT INR APTT Sodium Potassium Chloride Carbon Dioxide Anion Gap BUN Creatinine Est GFR ( Amer) Est GFR (Non-Af Amer) Random Glucose Hemoglobin A1c Calcium Phosphorus Magnesium Iron TIBC % Saturation Ferritin 19.0 Total Bilirubin AST ALT Alkaline Phosphatase Total Protein Albumin Globulin Albumin/Globulin Ratio Triglycerides Cholesterol LDL Cholesterol Direct HDL Cholesterol Vitamin B12 501 Folate > 20.0 Stool Leukocytes, Qual Alcohol, Quantitative < 10 C. difficile Ag & Toxin Blood Type O POSITIVE Antibody Screen Negative 07/05/17 07/05/17 07/06/17 17:39 19:13 06:00 WBC 6.3 RBC 3.72 L Hgb 9.7 L Hct 29.8 L MCV 80.1 MCH 26.1 L MCHC 32.6 L RDW 18.3 H Plt Count 354 MPV 7.9 Neut % (Auto) 89.5 H Lymph % (Auto) 5.5 L Butts % (Auto) 4.3 Eos % (Auto) 0.1 Baso % (Auto) 0.6 Neut # 5.6 Lymph # 0.3 L Butts # 0.3 Eos # 0.0 Baso # 0.0 Neutrophils % (Manual) 84 H Band Neutrophils % 3 H Lymphocytes % (Manual) 9 L Monocytes % (Manual) 4 Platelet Estimate Normal Hypochromasia (manual) Slight Poikilocytosis (manual Slight Anisocytosis (manual) Slight Target Cells Slight PT INR APTT Sodium Potassium Chloride Carbon Dioxide Anion Gap BUN Creatinine Est GFR ( Amer) Est GFR (Non-Af Amer) Random Glucose Hemoglobin A1c Calcium Phosphorus Magnesium Iron 24 L TIBC 240 L % Saturation 10 L Ferritin Total Bilirubin AST ALT Alkaline Phosphatase Total Protein Albumin Globulin Albumin/Globulin Ratio Triglycerides Cholesterol LDL Cholesterol Direct HDL Cholesterol Vitamin B12 Folate Stool Leukocytes, Qual Negative Alcohol, Quantitative C. difficile Ag & Toxin Negative Blood Type Antibody Screen 07/06/17 07/06/17 07/06/17 06:00 06:00 06:00 WBC RBC Hgb Hct MCV MCH MCHC RDW Plt Count MPV Neut % (Auto) Lymph % (Auto) Butts % (Auto) Eos % (Auto) Baso % (Auto) Neut # Lymph # Butts # Eos # Baso # Neutrophils % (Manual) Band Neutrophils % Lymphocytes % (Manual) Monocytes % (Manual) Platelet Estimate Hypochromasia (manual) Poikilocytosis (manual Anisocytosis (manual) Target Cells PT 12.4 H INR 1.1 APTT 36 H Sodium 132 Potassium 3.6 Chloride 103 Carbon Dioxide 25 Anion Gap 8 L BUN 15 Creatinine 0.8 Est GFR ( Amer) > 60 Est GFR (Non-Af Amer) > 60 Random Glucose 80 Hemoglobin A1c 5.6 Calcium 7.8 L Phosphorus 2.9 Magnesium 1.5 L Iron TIBC % Saturation Ferritin Total Bilirubin 0.7 AST 16 L ALT 32 Alkaline Phosphatase 61 Total Protein 5.3 L Albumin 2.7 L Globulin 2.6 Albumin/Globulin Ratio 1.1 Triglycerides 56 Cholesterol 142 LDL Cholesterol Direct 49 HDL Cholesterol 69 Vitamin B12 Folate Stool Leukocytes, Qual Alcohol, Quantitative C. difficile Ag & Toxin Blood Type Antibody Screen Assessment & Plan (1) Colitis Assessment and Plan: Seen on CT. R/O infectious, ischemic. Rec: Colonoscopy. Awaiting records from [facility] [place] Status: Acute (2) Anemia Assessment and Plan: Undetermined source. R/O GI blood losses vs chronic disease Rec: Check stool OB. Colonoscopy. May need EGD depending on colonoscopy findings. Status: Acute (3) Diarrhea Assessment and Plan: Check stool studies Status: Acute (4) Diabetes mellitus Status: Acute - Date & Time Date: 07/06/17 Time: 15:03
--- NOTE | 2017-07-06 15:11 | CP.PCM.PN ---
<Parvin Goodson - Last Filed: 07/06/17 15:07> Subjective - Date & Time of Evaluation Date of Evaluation: 07/06/17 Time of Evaluation: 09:00 - Subjective Subjective: Medicine Note for Hospitalist Service - Dr. Meenu Hilton Patient was seen and examined at bedside. Patient reports he continues to have some abdominal pain, patient inquired about eating. Denied fever, chills, headache, chest pain, SOB, abdominal pain, n/v/d/c, or urinary symptoms. Objective - Vital Signs/Intake and Output Vital Signs (last 24 hours): Temp Pulse Resp BP Pulse Ox 98 F 86 20 153/83 H 99 07/06/17 08:00 07/06/17 08:00 07/06/17 08:00 07/06/17 08:00 07/06/17 08:00 Intake and Output: 07/06/17 07/06/17 06:59 18:59 Intake Total 1550 Output Total 300 Balance 1250 - Medications Medications: Current Medications Acetaminophen (Tylenol 325mg Tab) 650 mg PO Q6 PRN PRN Reason: Fever >100.4 F Amlodipine Besylate (Norvasc) 5 mg PO DAILY [facility] Last Admin: 07/06/17 11:04 Dose: 5 mg Hydralazine HCl (Apresoline) 10 mg IVP Q6H PRN PRN Reason: Systolic Blood Pressure > 160 Last Admin: 07/06/17 01:04 Dose: 10 mg Sodium Chloride (Sodium Chloride 0.9%) 1,000 mls @ 100 mls/hr IV .Q10H [facility] Last Admin: 07/06/17 11:50 Dose: Not Given Metronidazole (Flagyl) 500 mg in 100 mls @ 100 mls/hr IVPB Q8 [facility] Last Admin: 07/06/17 14:57 Dose: 100 mls/hr Ciprofloxacin (Cipro 400mg/200ml Dsw) 400 mg in 200 mls @ 133 mls/hr IVPB Q12H [facility] Last Admin: 07/06/17 14:57 Dose: 133 mls/hr Morphine Sulfate (Morphine) 2 mg IVP Q4H PRN PRN Reason: Pain, severe (8-10) Last Admin: 07/06/17 05:25 Dose: 2 mg Morphine Sulfate (Morphine) 1 mg IVP Q4H PRN PRN Reason: Pain, moderate (4-7) Last Admin: 07/06/17 11:04 Dose: 1 mg Ondansetron HCl (Zofran Inj) 4 mg IVP Q6 PRN PRN Reason: Nausea/Vomiting Pantoprazole Sodium (Protonix Inj) 40 mg IVP DAILY [facility] Last Admin: 07/06/17 11:04 Dose: 40 mg Saccharomyces Boulardii (Florastor) 250 mg PO BID [facility] Last Admin: 07/06/17 11:05 Dose: 250 mg - Labs Labs: 07/06/17 06:00 07/06/17 06:00 PT 12.4 SECONDS (9.7-12.2) H 07/06/17 06:00 INR 1.1 07/06/17 06:00 APTT 36 SECONDS (21-34) H 07/06/17 06:00 - Additional Findings Additional findings: - Constitutional Appears: Toxic, Unkempt - Head Exam Head Exam: NORMAL INSPECTION, NORMOCEPHALIC - Eye Exam Eye Exam: EOMI, Normal appearance, PERRL Pupil Exam: NORMAL ACCOMODATION - ENT Exam ENT Exam: Mucous Membranes Dry - Respiratory Exam Respiratory Exam: Clear to Auscultation Bilateral. absent: Decreased Breath Sounds, Wheezes - Cardiovascular Exam Cardiovascular Exam: Tachycardia. absent: Systolic Murmur - GI/Abdominal Exam GI & Abdominal Exam: Soft, Tenderness (LLQ RLQ). absent: Distended Additional comments: Midline surgical scar, extending to RLQ - Rectal Exam Rectal Exam: Deferred - Extremities Exam Extremities exam: Positive for: normal inspection, pedal pulses present. Negative for: pedal edema, tenderness - Neurological Exam Neurological exam: Alert, CN II-XII Intact, Oriented x3 - Psychiatric Exam Psychiatric exam: Normal Affect, Normal Mood - Skin Skin Exam: Dry, Intact, Normal Color, Warm Assessment and Plan - Assessment and Plan (Free Text) Assessment: 66M with PMHx of HTN and DM presented to the ED with fever, chills, nausea, vomiting, abdominal pain, diarrhea, and melena x 1 week. History of surgeries involved a hernia repair, colostomy and reversal of the colostomy. 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 Red - help appreciated GI consulted - Dr. Denny - help appreciated Afebrile, no tachycardia, no leukocytosis with left shift, lactate 0.6 CT Abdomen & Pelvis (07/05): Segmental severe right colon wall thickening noted at the splenic flexure and proximal descending colon consistent with colitis. The differential diagnosis includes infection inflammatory or ischemic colitis. Moderately dilated small bowel loops at the left abdomen and partially collapsed small bowel loops at the right abdomen. The oral contrast seen in the small bowel at the left abdomen and in the descending colon. The possibility of small to large bowel fistula is not totally excluded. Correlation with prior study and prior surgical history is suggested. Mildly dilated biliary tree and main pancreatic duct noted. Fullness noted at the pancreatic head without evidence of discrete mass in this study. Mild abdominal and pelvic lymphadenopathy. Moderate anasarca. Surgery reccs: Advanaced diet as tolerated started on CLD. pt should follow up with original surgeon at [facility] following d/c GI reccs: NPO, Colonoscopy tomorrow morning, possible EGD if needed Medications: NS @ 100cc/hr Cipro 400mg IVP Q12 and Flagyl Q8H - started 07/05/17 Tylenol PRN for fever, Morphine PRN for pain, Zofran PRN for nausea/vomiting Florastor 250mg PO BID Labs: Follow up: blood culture Stool cultures - negative Melena Anemia GI Consulted - Dr. Denny- help appreciated Baseline hemoglobin 2016 was 11.5, currently 8.5 Transfused 1 unit of PRBCs, hemoglobin 9.7 Labs: Anemia Workup - iron deficiency anemia - will need to be started on Iron after infectious process has resolved Stool Occult x3, Stool cultures, CDiff Hx of Abdominal Surgeries As per patient, hernia repair, colostomy and colostomy reversal within the last year Records will be retrieved from [facility] (consent faxed and in chart) Hx HTN Started on Norvasc 5mg PO daily - may need to increase Hydralazine 10mg IVP PRN for SBP >160 hold if HR <60 Labs: Lipid panel - WNL Hx DM A1C- 5.6 UDS + for opiates ETOH <10 Prophylactic Measures GI PPX: Protonix 40mg IVP daily DVT PPX: VTE c/i due to possible GI bleed NPO PT/OT DW Kellee Pineda DO, PGY-1 <Harvey Hilton - Last Filed: 07/06/17 15:59> Objective - Vital Signs/Intake and Output Vital Signs (last 24 hours): Temp Pulse Resp BP Pulse Ox 98 F 86 20 153/83 H 99 07/06/17 08:00 07/06/17 08:00 07/06/17 08:00 07/06/17 08:00 07/06/17 08:00 Intake and Output: 07/06/17 07/06/17 06:59 18:59 Intake Total 1550 Output Total 300 Balance 1250 - Medications Medications: Current Medications Acetaminophen (Tylenol 325mg Tab) 650 mg PO Q6 PRN PRN Reason: Fever >100.4 F Amlodipine Besylate (Norvasc) 5 mg PO DAILY [facility] Last Admin: 07/06/17 11:04 Dose: 5 mg Bisacodyl (Dulcolax) 10 mg PO ONCE ONE Stop: 07/06/17 18:01 Hydralazine HCl (Apresoline) 10 mg IVP Q6H PRN PRN Reason: Systolic Blood Pressure > 160 Last Admin: 07/06/17 01:04 Dose: 10 mg Sodium Chloride (Sodium Chloride 0.9%) 1,000 mls @ 100 mls/hr IV .Q10H [facility] Last Admin: 07/06/17 11:50 Dose: Not Given Metronidazole (Flagyl) 500 mg in 100 mls @ 100 mls/hr IVPB Q8 [facility] Last Admin: 07/06/17 14:57 Dose: 100 mls/hr Ciprofloxacin (Cipro 400mg/200ml Dsw) 400 mg in 200 mls @ 133 mls/hr IVPB Q12H [facility] Last Admin: 07/06/17 14:57 Dose: 133 mls/hr Morphine Sulfate (Morphine) 2 mg IVP Q4H PRN PRN Reason: Pain, severe (8-10) Last Admin: 07/06/17 05:25 Dose: 2 mg Morphine Sulfate (Morphine) 1 mg IVP Q4H PRN PRN Reason: Pain, moderate (4-7) Last Admin: 07/06/17 11:04 Dose: 1 mg Ondansetron HCl (Zofran Inj) 4 mg IVP Q6 PRN PRN Reason: Nausea/Vomiting Pantoprazole Sodium (Protonix Inj) 40 mg IVP DAILY [facility] Last Admin: 07/06/17 11:04 Dose: 40 mg Polyethylene Glycol/Electrolytes (Golytely) 2,000 ml PO ONCE ONE Stop: 07/06/17 19:01 Polyethylene Glycol/Electrolytes (Golytely) 2,000 ml PO ONCE ONE Stop: 07/07/17 06:01 Saccharomyces Boulardii (Florastor) 250 mg PO BID [facility] Last Admin: 07/06/17 11:05 Dose: 250 mg - Labs Labs: 07/06/17 06:00 07/06/17 06:00 PT 12.4 SECONDS (9.7-12.2) H 07/06/17 06:00 INR 1.1 07/06/17 06:00 APTT 36 SECONDS (21-34) H 07/06/17 06:00 Attending/Attestation - Attestation I have personally seen and examined this patient.: Yes I have fully participated in the care of the patient.: Yes I have reviewed all pertinent clinical information, including history, physical exam and plan: Yes Notes (Text): 07/06/17 15:59 Medical attending: Patient was seen and examined by me, agree the above note by the medical office specialist. We saw the patient together. Unfortunately he is not a great historian at all. He previously was having more abdominal pain and since then his have subsided. He was given 1 unit of PRBCs overnight by the previous medical team. His hemoglobin is now 9.7. Apparently this patient history of previous abdominal surgeries. Inspection of his abdomen shows he has a lot of surgical scars here. The patient explains to us that he thinks he's had a hernia repair as well as a colostomy at some point. However he explains is that he is very unsure as to the nature of why he had the colostomy in the first place. He's currently on IV antibiotics at this time including Cipro and Flagyl. Per surgery, he does not need any acute intervention at this moment. They are recommending that he follow-up with surgery at [facility]. Per GI, there is plans for colonoscopy and possibly an EGD tomorrow Thank you so much, Harvey Hilton
[2017-07-06] MEDS ORDERED: Bisacodyl 5mg EC Tab PO ONE (18:00)
[2017-07-06] MEDS ORDERED: Peg-Electrolyte Oral Soln 4L (Golytely) PO ONE (19:00)
[2017-07-06] MEDS ORDERED: Magnesium Sulfate 1 gm in D5W 1 GM/100 ML BAG IVPB ONE (20:50)
[2017-07-07] MEDS: Ciprofloxacin 400mg/200ml D5W 400 MG/200 ML BAG IVPB SCH ×2 (01:04→14:47)
[2017-07-07] MEDS: Sodium Chloride 0.9% 1,000 ML IV SCH ×2 (04:18→10:48)
[2017-07-07] MEDS: metroNIDAZOLE IV 500 mg/100 ml 500 MG/100 ML BAG IVPB SCH ×3 (05:54→22:00)
[2017-07-07] MEDS ORDERED: Peg-Electrolyte Oral Soln 4L (Golytely) PO ONE (06:00)
[2017-07-07 06:33] LABS: BASO % 0.2 % (0.0-2.0); EOS % 0.7 % (0.0-4.0); HEMATOCRIT 28.2 % (35.0-51.0); LYMPH # 0.4 K/uL (1.0-4.3); MEAN CELL VOLUME 79.6 fL (80.0-94.0); MEAN CORPUSCULAR HGB CONC 32.7 g/dL (33.0-37.0); MEAN PLATELET VOLUME 7.8 fL (7.2-11.7); MONO # 0.5 K/uL (0.0-0.8); MONO % 10.6 % (0.0-10.0); PLATELET COUNT 340 K/uL (130-400); RED CELL DISTRIBUTION WIDTH 17.9 % (11.5-14.5); WHITE BLOOD COUNT 4.3 K/uL (4.8-10.8)
[2017-07-07 06:45] LABS: ALKALINE PHOSPHATASE 56 U/L (38-126); ALT/SGPT 35 U/L (21-72); AST/SGOT 13 U/L (17-59); BILIRUBIN,TOTAL 0.4 mg/dL (0.2-1.3); BLOOD UREA NITROGEN 12 mg/dL (9-20); CALCIUM 7.7 mg/dl (8.6-10.4); CARBON DIOXIDE 27 mmol/L (22-30); CHLORIDE 102 mmol/L (98-107); GFR AFRICAN-AMERICAN > 60; GLUCOSE,RANDOM 86 mg/dL (75-110); MAGNESIUM 1.7 mg/dL (1.6-2.3); PHOSPHOROUS 2.5 mg/dL (2.5-4.5); POTASSIUM 3.3 mmol/L (3.6-5.2); SODIUM 135 mmol/L (132-148)
[2017-07-07 06:55] LABS: ALB/GLOB RATIO 0.8 (1.0-2.1)
--- NOTE | 2017-07-07 07:57 | CP.PCM.PN ---
Subjective - Date & Time of Evaluation Date of Evaluation: 07/07/17 Time of Evaluation: 07:00 - Subjective Subjective: Medicine Note for Hospitalist Service - Dr. Meenu Hilton Patient was seen and examined at bedside. Patient reports he continues to have some abdominal pain, well controlled with pain medication. Denied fever, chills , headache, chest pain, SOB, abdominal pain, n/v/d/c, or urinary symptoms. NPO for colonoscopy today with Dr. Denny. Objective - Vital Signs/Intake and Output Vital Signs (last 24 hours): Temp Pulse Resp BP Pulse Ox 98.0 F 69 20 150/84 99 07/07/17 04:52 07/07/17 04:52 07/07/17 04:52 07/07/17 04:52 07/07/17 04:52 Intake and Output: 07/07/17 07/07/17 06:59 18:59 Intake Total 980 Balance 980 - Medications Medications: Current Medications Acetaminophen (Tylenol 325mg Tab) 650 mg PO Q6 PRN PRN Reason: Fever >100.4 F Amlodipine Besylate (Norvasc) 10 mg PO DAILY [facility] Hydralazine HCl (Apresoline) 10 mg IVP Q6H PRN PRN Reason: Systolic Blood Pressure > 160 Last Admin: 07/06/17 17:40 Dose: 10 mg Metronidazole (Flagyl) 500 mg in 100 mls @ 100 mls/hr IVPB Q8 [facility] Last Admin: 07/07/17 05:54 Dose: 100 mls/hr Ciprofloxacin (Cipro 400mg/200ml Dsw) 400 mg in 200 mls @ 133 mls/hr IVPB Q12H [facility] Last Admin: 07/07/17 01:04 Dose: 133 mls/hr Sodium Chloride (Sodium Chloride 0.9%) 1,000 mls @ 75 mls/hr IV .[id number] [facility] Last Admin: 07/07/17 04:18 Dose: 75 mls/hr Morphine Sulfate (Morphine) 2 mg IVP Q4H PRN PRN Reason: Pain, severe (8-10) Last Admin: 07/07/17 04:16 Dose: 2 mg Morphine Sulfate (Morphine) 1 mg IVP Q4H PRN PRN Reason: Pain, moderate (4-7) Last Admin: 07/07/17 00:57 Dose: 1 mg Ondansetron HCl (Zofran Inj) 4 mg IVP Q6 PRN PRN Reason: Nausea/Vomiting Pantoprazole Sodium (Protonix Inj) 40 mg IVP DAILY [facility] Last Admin: 07/06/17 11:04 Dose: 40 mg Saccharomyces Boulardii (Florastor) 250 mg PO BID [facility] Last Admin: 07/06/17 17:40 Dose: 250 mg - Labs Labs: 07/07/17 06:18 07/07/17 06:18 PT 12.4 SECONDS (9.7-12.2) H 07/06/17 06:00 INR 1.1 07/06/17 06:00 APTT 36 SECONDS (21-34) H 07/06/17 06:00 - Additional Findings Additional findings: - Constitutional Appears: Unkempt - Head Exam Head Exam: NORMAL INSPECTION, NORMOCEPHALIC - Eye Exam Eye Exam: EOMI, Normal appearance, PERRL Pupil Exam: NORMAL ACCOMODATION - ENT Exam ENT Exam: Mucous Membranes Dry - Respiratory Exam Respiratory Exam: Clear to Auscultation Bilateral. absent: Decreased Breath Sounds, Wheezes - Cardiovascular Exam Cardiovascular Exam: Tachycardia. absent: Systolic Murmur - GI/Abdominal Exam GI & Abdominal Exam: Soft, Tenderness (LLQ RLQ). absent: Distended Additional comments: Midline surgical scar, extending to RLQ - Rectal Exam Rectal Exam: Deferred - Extremities Exam Extremities exam: Positive for: normal inspection, pedal pulses present. Negative for: pedal edema, tenderness - Neurological Exam Neurological exam: Alert, CN II-XII Intact, Oriented x3 - Psychiatric Exam Psychiatric exam: Normal Affect, Normal Mood - Skin Skin Exam: Dry, Intact, Normal Color, Warm Assessment and Plan - Assessment and Plan (Free Text) Assessment: 66M with PMHx of HTN and DM presented to the ED with fever, chills, nausea, vomiting, abdominal pain, diarrhea, and melena x 1 week. History of surgeries involved a hernia repair, colostomy and reversal of the colostomy. 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 Red - help appreciated - patient is clinically better - patient is to follow up with his surgeon in [facility] GI consulted - Dr. Denny - help appreciated Afebrile, no tachycardia, no leukocytosis with left shift, lactate 0.6 CT Abdomen & Pelvis (07/05): Segmental severe right colon wall thickening noted at the splenic flexure and proximal descending colon consistent with colitis. The differential diagnosis includes infection inflammatory or ischemic colitis. Moderately dilated small bowel loops at the left abdomen and partially collapsed small bowel loops at the right abdomen. The oral contrast seen in the small bowel at the left abdomen and in the descending colon. The possibility of small to large bowel fistula is not totally excluded. Correlation with prior study and prior surgical history is suggested. Mildly dilated biliary tree and main pancreatic duct noted. Fullness noted at the pancreatic head without evidence of discrete mass in this study. Mild abdominal and pelvic lymphadenopathy. Moderate anasarca. Surgery reccs: Advanaced diet as tolerated started on CLD. pt should follow up with original surgeon at [facility] following d/c GI reccs: NPO, Colonoscopy scheduled for today. pending GI reccs Medications: NS @ 100cc/hr Cipro 400mg IVP Q12 and Flagyl Q8H - started 07/05/17 Tylenol PRN for fever, Morphine PRN for pain, Zofran PRN for nausea/vomiting Florastor 250mg PO BID Labs: Follow up: blood culture Stool cultures - negative Stool occult - + 07/06/17 Melena Anemia GI Consulted - Dr. Denny- help appreciated Baseline hemoglobin 2016 was 11.5, currently 8.5 Transfused 1 unit of PRBCs, hemoglobin 9.7- now stable Labs: Anemia Workup - iron deficiency anemia - will need to be started on Iron after infectious process has resolved Stool Occult x3, Stool cultures, CDiff Stool occult - + 07/06/17 Hx of Abdominal Surgeries As per patient, hernia repair, colostomy and colostomy reversal within the last year Records will be retrieved from [facility] (consent faxed and in chart) Hx HTN Increased Norvasc 10mg PO daily - was on 5mg PO daily Hydralazine 10mg IVP PRN for SBP >160 hold if HR <60 Labs: Lipid panel - WNL Hx DM A1C- 5.6 UDS + for opiates ETOH <10 Prophylactic Measures GI PPX: Protonix 40mg IVP daily DVT PPX: VTE c/i due to possible GI bleed NPO PT/OT DW Kellee Pineda DO, PGY-1
[2017-07-07 08:35] LABS: NEUTROPHIL 90 % (50-75); TOTAL CELLS COUNTED 100
--- NOTE | 2017-07-07 09:11 | CP.PCM.PN ---
Addendum entered and electronically signed by William Adams DO 07/07/17 16: 35: colonoscopy negative for ischemic colitis unclear if EGD is planned no surgical intervention at this time, please reconsult as necessary pt to follow up with original surgeon pending discharge Original Note: <AngieWilliam Inocente - Last Filed: 07/07/17 09:08> Subjective - Date & Time of Evaluation Date of Evaluation: 07/07/17 Time of Evaluation: 06:55 - Subjective Subjective: Gen Sx: Dr Red Pt S&E. Receiving PEG and reports multiple liquids BMs (11-12 times) throughout the night. Otherwise no complaints. Denies abdominal pain, n/v. HgB dropped slightly again and fecal occult came back +. Going for colonoscopy today. Objective - Vital Signs/Intake and Output Vital Signs (last 24 hours): Temp Pulse Resp BP Pulse Ox 98.2 F 63 20 151/90 H 98 07/07/17 08:02 07/07/17 08:02 07/07/17 08:02 07/07/17 08:02 07/07/17 08:02 Intake and Output: 07/07/17 07/07/17 06:59 18:59 Intake Total 980 Balance 980 - Medications Medications: Current Medications Acetaminophen (Tylenol 325mg Tab) 650 mg PO Q6 PRN PRN Reason: Fever >100.4 F Amlodipine Besylate (Norvasc) 10 mg PO DAILY [facility] Hydralazine HCl (Apresoline) 10 mg IVP Q6H PRN PRN Reason: Systolic Blood Pressure > 160 Last Admin: 07/06/17 17:40 Dose: 10 mg Metronidazole (Flagyl) 500 mg in 100 mls @ 100 mls/hr IVPB Q8 [facility] Last Admin: 07/07/17 05:54 Dose: 100 mls/hr Ciprofloxacin (Cipro 400mg/200ml Dsw) 400 mg in 200 mls @ 133 mls/hr IVPB Q12H [facility] Last Admin: 07/07/17 01:04 Dose: 133 mls/hr Sodium Chloride (Sodium Chloride 0.9%) 1,000 mls @ 75 mls/hr IV .[id number] [facility] Last Admin: 07/07/17 04:18 Dose: 75 mls/hr Morphine Sulfate (Morphine) 2 mg IVP Q4H PRN PRN Reason: Pain, severe (8-10) Last Admin: 07/07/17 04:16 Dose: 2 mg Morphine Sulfate (Morphine) 1 mg IVP Q4H PRN PRN Reason: Pain, moderate (4-7) Last Admin: 07/07/17 00:57 Dose: 1 mg Ondansetron HCl (Zofran Inj) 4 mg IVP Q6 PRN PRN Reason: Nausea/Vomiting Pantoprazole Sodium (Protonix Inj) 40 mg IVP DAILY [facility] Last Admin: 07/06/17 11:04 Dose: 40 mg Potassium Chloride (K-Dur 20 Meq Er Tab) 40 meq PO ONCE ONE Stop: 07/07/17 12:01 Saccharomyces Boulardii (Florastor) 250 mg PO BID [facility] Last Admin: 07/06/17 17:40 Dose: 250 mg - Labs Labs: 07/07/17 06:18 07/07/17 06:18 PT 12.4 SECONDS (9.7-12.2) H 07/06/17 06:00 INR 1.1 07/06/17 06:00 APTT 36 SECONDS (21-34) H 07/06/17 06:00 - Constitutional Appears: Non-toxic, No Acute Distress - ENT Exam ENT Exam: Mucous Membranes Moist - Respiratory Exam Respiratory Exam: absent: Accessory Muscle Use, Respiratory Distress - Cardiovascular Exam Cardiovascular Exam: absent: Tachycardia - GI/Abdominal Exam GI & Abdominal Exam: Soft. absent: Distended, Firm, Guarding, Rigid, Tenderness - Neurological Exam Neurological Exam: Alert, Awake, Oriented x3 - Psychiatric Exam Psychiatric exam: Normal Affect, Normal Mood - Skin Skin Exam: Normal Color, Warm Assessment and Plan - Assessment and Plan (Free Text) Assessment: 66M with abdominal pain; possible lower GI bleed Plan: Gi concerned for possible ischemic colitis at the splenic flexure will f/u colonoscopy w/ further recs to follow will d/w Dr Teofilo Adams, PGY3 <Francisco J Red - Last Filed: 07/09/17 17:54> Objective - Vital Signs/Intake and Output Vital Signs (last 24 hours): Temp Pulse Resp BP Pulse Ox 98.3 F 75 18 159/86 H 100 07/09/17 08:39 07/09/17 08:39 07/09/17 08:39 07/09/17 08:39 07/09/17 08:39 Intake and Output: 07/09/17 07/09/17 06:59 18:59 Intake Total 300 Balance 300 - Labs Labs: 07/09/17 06:28 07/09/17 06:28 PT 12.4 SECONDS (9.7-12.2) H 07/06/17 06:00 INR 1.1 07/06/17 06:00 APTT 36 SECONDS (21-34) H 07/06/17 06:00 Attending/Attestation - Attestation I have personally seen and examined this patient.: Yes I have fully participated in the care of the patient.: Yes I have reviewed all pertinent clinical information, including history, physical exam and plan: Yes Notes (Text): Pt was seen and examined at bedside Agree with above note and assessment Pt with Colitis s/p colonoscopy Epigastric tenderness EGD tomorrow IV antibiotics NPO, IVF C/w current mx Plan d.w pt in detail Risk and benefit explained in detail.
[2017-07-07] MEDS: Saccharomyces Boulardi 250 mg Cap PO SCH ×2 (09:18→17:31)
[2017-07-07] MEDS ORDERED: Potassium Chloride 20 mEq ER Tab PO ONE (12:00)
[2017-07-07] MEDS ORDERED: Propofol 10 mg/ml Inj (20 ML) ONE (14:59)
[2017-07-07] MEDS ORDERED: Lactated Ringer's 1,000 ML IV ONE (15:20)
[2017-07-08] MEDS: Sodium Chloride 0.9% 1,000 ML IV SCH
[2017-07-08] MEDS: Ciprofloxacin 400mg/200ml D5W 400 MG/200 ML BAG IVPB SCH ×2 (01:58→13:08)
[2017-07-08] MEDS: metroNIDAZOLE IV 500 mg/100 ml 500 MG/100 ML BAG IVPB SCH ×3 (05:28→21:35)
[2017-07-08 07:03] LABS: HEMATOCRIT 29.3 % (35.0-51.0); MEAN CELL VOLUME 80.1 fL (80.0-94.0); MEAN CORPUSCULAR HEMOGLOBIN 26.4 pg (27.0-31.0); MEAN PLATELET VOLUME 7.9 fL (7.2-11.7); RED CELL DISTRIBUTION WIDTH 18.1 % (11.5-14.5); WHITE BLOOD COUNT 3.3 K/uL (4.8-10.8)
[2017-07-08 07:53] LABS: ALKALINE PHOSPHATASE 58 U/L (38-126); ALT/SGPT 27 U/L (21-72); AST/SGOT 23 U/L (17-59); BILIRUBIN,TOTAL 0.3 mg/dL (0.2-1.3); BLOOD UREA NITROGEN 11 mg/dL (9-20); CALCIUM 7.6 mg/dl (8.6-10.4); CARBON DIOXIDE 28 mmol/L (22-30); CHLORIDE 104 mmol/L (98-107); GFR AFRICAN-AMERICAN > 60; GLUCOSE,RANDOM 87 mg/dL (75-110); MAGNESIUM 1.6 mg/dL (1.6-2.3); PHOSPHOROUS 3.1 mg/dL (2.5-4.5); POTASSIUM 3.7 mmol/L (3.6-5.2); SODIUM 135 mmol/L (132-148); TOTAL PROTEIN 5.1 g/dL (6.3-8.3)
[2017-07-08 10:07] LABS: BASO % 0.5 % (0.0-2.0); EOS % 0.7 % (0.0-4.0); LYMPH # 0.8 K/uL (1.0-4.3); LYMPH % 23.7 % (20.0-40.0); MONO # 0.3 K/uL (0.0-0.8); MONO % 9.9 % (0.0-10.0); NRBC % 0.1 % (0.0-2.0)
[2017-07-08] MEDS ORDERED: Lactated Ringer's 500 ML IV ONE ×2 (10:49)
[2017-07-08] MEDS ORDERED: Propofol 10 mg/ml Inj (20 ML) ONE (10:50)
[2017-07-08] MEDS ORDERED: Lidocaine Hydrochloride 5 ML INJ ONE (10:50)
--- NOTE | 2017-07-08 12:11 | CP.PCM.PN ---
<Parvin Goodson - Last Filed: 07/08/17 12:03> Subjective - Date & Time of Evaluation Date of Evaluation: 07/08/17 Time of Evaluation: 09:00 - Subjective Subjective: Medicine Note for Hospitalist Service - Dr. Meenu Hilton Patient was seen and examined at bedside. Patient reports he continues to have some abdominal pain, well controlled with pain medication. Denied fever, chills , headache, chest pain, SOB, abdominal pain, n/v/d/c, or urinary symptoms. S/P EGD today. As per GI - continue to remain NPO for another procedure with GI. Objective - Vital Signs/Intake and Output Vital Signs (last 24 hours): Temp Pulse Resp BP Pulse Ox 96.6 F L 71 16 170/90 H 100 07/08/17 11:20 07/08/17 11:45 07/08/17 11:45 07/08/17 11:45 07/08/17 11:45 Intake and Output: 07/08/17 07/08/17 06:59 18:59 Intake Total 1000 Output Total 400 Balance 600 - Medications Medications: Current Medications Acetaminophen (Tylenol 325mg Tab) 650 mg PO Q6 PRN PRN Reason: Fever >100.4 F Amlodipine Besylate (Norvasc) 10 mg PO DAILY [facility] Last Admin: 07/07/17 09:18 Dose: 10 mg Hydralazine HCl (Apresoline) 10 mg IVP Q6H PRN PRN Reason: Systolic Blood Pressure > 160 Last Admin: 07/06/17 17:40 Dose: 10 mg Metronidazole (Flagyl) 500 mg in 100 mls @ 100 mls/hr IVPB Q8 [facility] Last Admin: 07/08/17 05:28 Dose: 100 mls/hr Ciprofloxacin (Cipro 400mg/200ml Dsw) 400 mg in 200 mls @ 133 mls/hr IVPB Q12H [facility] Last Admin: 07/08/17 01:58 Dose: 133 mls/hr Sodium Chloride (Sodium Chloride 0.9%) 1,000 mls @ 75 mls/hr IV .[id number] [facility] Last Admin: 07/08/17 00:00 Dose: Not Given Ondansetron HCl (Zofran Inj) 4 mg IVP Q6 PRN PRN Reason: Nausea/Vomiting Pantoprazole Sodium (Protonix Inj) 40 mg IVP DAILY [facility] Last Admin: 07/07/17 09:18 Dose: 40 mg Saccharomyces Boulardii (Florastor) 250 mg PO BID [facility] Last Admin: 07/07/17 17:31 Dose: Not Given - Labs Labs: 07/08/17 06:48 07/08/17 06:48 PT 12.4 SECONDS (9.7-12.2) H 07/06/17 06:00 INR 1.1 07/06/17 06:00 APTT 36 SECONDS (21-34) H 07/06/17 06:00 - Additional Findings Additional findings: - Constitutional Appears: Unkempt - Head Exam Head Exam: NORMAL INSPECTION, NORMOCEPHALIC - Eye Exam Eye Exam: EOMI, Normal appearance, PERRL Pupil Exam: NORMAL ACCOMODATION - ENT Exam ENT Exam: Mucous Membranes Dry - Respiratory Exam Respiratory Exam: Clear to Auscultation Bilateral. absent: Decreased Breath Sounds, Wheezes - Cardiovascular Exam Cardiovascular Exam: Tachycardia. absent: Systolic Murmur - GI/Abdominal Exam GI & Abdominal Exam: Soft, Tenderness (LLQ RLQ). absent: Distended Additional comments: Midline surgical scar, extending to RLQ - Rectal Exam Rectal Exam: Deferred - Extremities Exam Extremities exam: Positive for: normal inspection, pedal pulses present. Negative for: pedal edema, tenderness - Neurological Exam Neurological exam: Alert, CN II-XII Intact, Oriented x3 - Psychiatric Exam Psychiatric exam: Normal Affect, Normal Mood - Skin Skin Exam: Dry, Intact, Normal Color, Warm Assessment and Plan - Assessment and Plan (Free Text) Plan: 66M with PMHx of HTN and DM presented to the ED with fever, chills, nausea, vomiting, abdominal pain, diarrhea, and melena x 1 week. History of surgeries involved a hernia repair, colostomy and reversal of the colostomy. 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 Red - help appreciated - patient is clinically better - patient is to follow up with his surgeon in [facility] GI consulted - Dr. Denny - help appreciated Afebrile, no tachycardia, no leukocytosis with left shift, lactate 0.6 CT Abdomen & Pelvis (07/05): Segmental severe right colon wall thickening noted at the splenic flexure and proximal descending colon consistent with colitis. The differential diagnosis includes infection inflammatory or ischemic colitis. Moderately dilated small bowel loops at the left abdomen and partially collapsed small bowel loops at the right abdomen. The oral contrast seen in the small bowel at the left abdomen and in the descending colon. The possibility of small to large bowel fistula is not totally excluded. Correlation with prior study and prior surgical history is suggested. Mildly dilated biliary tree and main pancreatic duct noted. Fullness noted at the pancreatic head without evidence of discrete mass in this study. Mild abdominal and pelvic lymphadenopathy. Moderate anasarca. Surgery reccs: Advanaced diet as tolerated started on CLD. pt should follow up with original surgeon at [facility] following d/c Colonoscopy: No erythema or ulcers seen. Will need a repeat colonoscopy in 1 year 2/2 poor bowel prep EGD: Patient has 2 obstructing non-bleeding cratered gastric and duodenal ulcer both 30mm. F/U H. Pylori Patient is to remain NPO for another study Medications: NS @ 100cc/hr Cipro 400mg IVP Q12 and Flagyl Q8H - started 07/05/17 Tylenol PRN for fever, Morphine PRN for pain, Zofran PRN for nausea/vomiting Florastor 250mg PO BID Labs: Follow up: blood culture Stool cultures - negative Stool occult - + 07/06/17 Melena Anemia GI Consulted - Dr. Denny- help appreciated Baseline hemoglobin 2015 was 11.5, currently 8.5 Transfused 1 unit of PRBCs, hemoglobin now stable Labs: Anemia Workup - iron deficiency anemia - will need to be started on Iron after infectious process has resolved Stool Occult x3, Stool cultures, CDiff Stool occult - + 07/06/17 Hx of Abdominal Surgeries As per patient, hernia repair, colostomy and colostomy reversal within the last year Records will be retrieved from [facility] (consent faxed and in chart) Hx HTN Increased Norvasc 10mg PO daily - was on 5mg PO daily Hydralazine 10mg IVP PRN for SBP >160 hold if HR <60 Labs: Lipid panel - WNL Hx DM A1C- 5.6 UDS + for opiates ETOH <10 Prophylactic Measures GI PPX: Protonix 40mg IVP daily DVT PPX: VTE c/i due to possible GI bleed NPO PT/OT DW Dr. Hilton, Kellee SINCLAIR, PGY-1 <Harvey Hilton H - Last Filed: 07/08/17 14:43> Objective - Vital Signs/Intake and Output Vital Signs (last 24 hours): Temp Pulse Resp BP Pulse Ox 96.6 F L 71 16 170/90 H 100 07/08/17 11:20 07/08/17 11:45 07/08/17 11:45 07/08/17 11:45 07/08/17 11:45 Intake and Output: 07/08/17 07/08/17 06:59 18:59 Intake Total 1000 Output Total 400 Balance 600 - Medications Medications: Current Medications Acetaminophen (Tylenol 325mg Tab) 650 mg PO Q6 PRN PRN Reason: Fever >100.4 F Amlodipine Besylate (Norvasc) 10 mg PO DAILY [facility] Last Admin: 07/08/17 13:11 Dose: 10 mg Hydralazine HCl (Apresoline) 10 mg IVP Q6H PRN PRN Reason: Systolic Blood Pressure > 160 Last Admin: 07/06/17 17:40 Dose: 10 mg Metronidazole (Flagyl) 500 mg in 100 mls @ 100 mls/hr IVPB Q8 [facility] Last Admin: 07/08/17 13:08 Dose: 100 mls/hr Ciprofloxacin (Cipro 400mg/200ml Dsw) 400 mg in 200 mls @ 133 mls/hr IVPB Q12H [facility] Last Admin: 07/08/17 13:08 Dose: 133 mls/hr Ondansetron HCl (Zofran Inj) 4 mg IVP Q6 PRN PRN Reason: Nausea/Vomiting Pantoprazole Sodium (Protonix Inj) 40 mg IVP DAILY [facility] Last Admin: 07/08/17 13:11 Dose: 40 mg Saccharomyces Boulardii (Florastor) 250 mg PO BID [facility] Last Admin: 07/08/17 13:11 Dose: 250 mg Sucralfate (Carafate Tab) 1 gm PO QID [facility] - Labs Labs: 07/08/17 06:48 07/08/17 06:48 PT 12.4 SECONDS (9.7-12.2) H 07/06/17 06:00 INR 1.1 07/06/17 06:00 APTT 36 SECONDS (21-34) H 07/06/17 06:00 Attending/Attestation - Attestation I have personally seen and examined this patient.: Yes I have fully participated in the care of the patient.: Yes I have reviewed all pertinent clinical information, including history, physical exam and plan: Yes Notes (Text): 07/08/17 14:40 Medical attending: Patient was seen and examined by me, reviewed and agree with the above note by medical imaging technologist. As mentioned previously the patient underwent a colonoscopy yesterday and this morning underwent an EGD. This EGD revealed that he does have a rather extensive gastric ulcer as well as a duodenal area ulcer as well. Biopsies were taken as well Before the patient underwent EGD today we did see and examine him. He reported that he was getting rather tired all these examinations. His lab work remained stable at this time, his hemoglobin is also stable. Previously he had 1 unit of PRBCs given on Thursday. He's also been evaluated by surgery as well, and there are no plans for surgical intervention at this time. He's been encouraged to follow-up with the surgeons over at [facility] as he does have history of colon resection as well as a ostomy bag and then had a reversal thank you Harvey Hilton
--- NOTE | 2017-07-08 12:15 | RAD ---
HISTORY: ileus COMPARISON: Comparison made with prior CT scan abdomen pelvis 07/05/2017. FINDINGS: BOWEL: Multiple nondistended air-filled loops of small bowel are present. Moderate the at ascending and proximal transverse colon. Additionally, chain sutures are again seen in the left upper and left mid abdomen. BONES: Normal. OTHER FINDINGS: None. IMPRESSION: No evidence of acute mechanical bowel obstruction.
[2017-07-08] MEDS: Saccharomyces Boulardi 250 mg Cap PO SCH ×3 (12:32→17:49)
[2017-07-09] MEDS: Ciprofloxacin 400mg/200ml D5W 400 MG/200 ML BAG IVPB SCH ×2 (01:04→12:00)
[2017-07-09] MEDS: metroNIDAZOLE IV 500 mg/100 ml 500 MG/100 ML BAG IVPB SCH ×2 (06:22→12:30)
[2017-07-09 06:53] LABS: BASO % 0.5 % (0.0-2.0); EOS % 0.9 % (0.0-4.0); HEMATOCRIT 27.5 % (35.0-51.0); LYMPH # 0.8 K/uL (1.0-4.3); LYMPH % 18.7 % (20.0-40.0); MEAN CELL VOLUME 80.3 fL (80.0-94.0); MEAN CORPUSCULAR HEMOGLOBIN 26.1 pg (27.0-31.0); MEAN CORPUSCULAR HGB CONC 32.5 g/dL (33.0-37.0); MEAN PLATELET VOLUME 8.1 fL (7.2-11.7); MONO # 0.3 K/uL (0.0-0.8); MONO % 8.1 % (0.0-10.0); RED CELL DISTRIBUTION WIDTH 18.4 % (11.5-14.5); WHITE BLOOD COUNT 4.2 K/uL (4.8-10.8)
[2017-07-09 06:55] LABS: ALB/GLOB RATIO 0.8 (1.0-2.1); ALKALINE PHOSPHATASE 57 U/L (38-126); ALT/SGPT 38 U/L (21-72); AST/SGOT 18 U/L (17-59); BILIRUBIN,TOTAL 0.1 mg/dL (0.2-1.3); BLOOD UREA NITROGEN 13 mg/dL (9-20); CALCIUM 7.4 mg/dl (8.6-10.4); CARBON DIOXIDE 25 mmol/L (22-30); CHLORIDE 106 mmol/L (98-107); GFR AFRICAN-AMERICAN > 60; GLUCOSE,RANDOM 75 mg/dL (75-110); MAGNESIUM 1.7 mg/dL (1.6-2.3); PHOSPHOROUS 2.9 mg/dL (2.5-4.5); POTASSIUM 3.8 mmol/L (3.6-5.2); SODIUM 135 mmol/L (132-148); TOTAL PROTEIN 5.8 g/dL (6.3-8.3)
--- NOTE | 2017-07-09 07:24 | CP.PCM.DIS ---
<Parvin Goodson - Last Filed: 07/09/17 07:55> Provider - Provider Date of Admission: 07/05/17 14:10 Attending physician: Harvey Hilton DO Time Spent in preparation of Discharge (in minutes): 55 Hospital Course - Lab Results Lab Results: Micro Results 07/05/17 13:30 Blood Blood Culture - Preliminary NO GROWTH AFTER 3 DAYS 07/05/17 14:00 Blood Blood Culture - Preliminary NO GROWTH AFTER 3 DAYS 07/05/17 19:13 Stool Ova and Parasite Concentrate Exam - Final 07/05/17 19:13 Stool Stool Culture - Final NO SALMONELLA, SHIGELLA OR CAMPYLOBACTER ISOLATED. Most Recent Lab Values WBC 4.2 K/uL (4.8-10.8) L 07/09/17 06:28 RBC 3.42 Mil/uL (4.40-5.90) L 07/09/17 06:28 Hgb 8.9 g/dL (12.0-18.0) L 07/09/17 06:28 Hct 27.5 % (35.0-51.0) L 07/09/17 06:28 MCV 80.3 fL (80.0-94.0) 07/09/17 06:28 MCH 26.1 pg (27.0-31.0) L 07/09/17 06:28 MCHC 32.5 g/dL (33.0-37.0) L 07/09/17 06:28 RDW 18.4 % (11.5-14.5) H 07/09/17 06:28 Plt Count 282 K/uL (130-400) 07/09/17 06:28 MPV 8.1 fL (7.2-11.7) 07/09/17 06:28 Neut % (Auto) 71.8 % (50.0-75.0) 07/09/17 06:28 Lymph % (Auto) 18.7 % (20.0-40.0) L 07/09/17 06:28 Leake % (Auto) 8.1 % (0.0-10.0) 07/09/17 06:28 Eos % (Auto) 0.9 % (0.0-4.0) 07/09/17 06:28 Baso % (Auto) 0.5 % (0.0-2.0) 07/09/17 06:28 Neut # 3.0 K/uL (1.8-7.0) 07/09/17 06:28 Lymph # 0.8 K/uL (1.0-4.3) L 07/09/17 06:28 Leake # 0.3 K/uL (0.0-0.8) 07/09/17 06:28 Eos # 0.0 K/uL (0.0-0.7) 07/09/17 06:28 Baso # 0.0 K/uL (0.0-0.2) 07/09/17 06:28 Neutrophils % (Manual) 90 % (50-75) H 07/07/17 06:18 Band Neutrophils % 3 % (0-2) H 07/06/17 06:00 Lymphocytes % (Manual) 7 % (20-40) L 07/07/17 06:18 Monocytes % (Manual) 3 % (0-10) 07/07/17 06:18 Eosinophils % (Manual) 1 % (0-4) 07/05/17 09:05 Platelet Estimate Normal (NORMAL) 07/07/17 06:18 Polychromasia Slight 07/07/17 06:18 Hypochromasia (manual) Moderate 07/07/17 06:18 Poikilocytosis (manual Slight 07/06/17 06:00 Anisocytosis (manual) Slight 07/07/17 06:18 Microcytosis (manual) Slight 07/07/17 06:18 Target Cells Slight 07/07/17 06:18 PT 12.4 SECONDS (9.7-12.2) H 07/06/17 06:00 INR 1.1 07/06/17 06:00 APTT 36 SECONDS (21-34) H 07/06/17 06:00 pO2 51 mm/Hg (30-55) 07/05/17 13:12 VBG pH 7.42 (7.32-7.43) 07/05/17 13:12 VBG pCO2 38 mmHg (40-60) L 07/05/17 13:12 VBG HCO3 24.9 mmol/L 07/05/17 13:12 VBG Total CO2 25.8 mmol/L (22-28) 07/05/17 13:12 VBG O2 Sat (Calc) 88.8 % (40-65) H 07/05/17 13:12 VBG Base Excess 0.3 mmol/L (0.0-2.0) 07/05/17 13:12 VBG Potassium 3.8 mmol/L (3.6-5.2) 07/05/17 13:12 Sodium 138.0 mmol/l (132-148) 07/05/17 13:12 Chloride 109.0 mmol/L (98-107) H 07/05/17 13:12 Glucose 68 mg/dl (75-110) L 07/05/17 13:12 Lactate 0.6 mmol/L (0.7-2.1) L 07/05/17 13:12 Sodium 135 mmol/L (132-148) 07/09/17 06:28 Potassium 3.8 mmol/L (3.6-5.2) 07/09/17 06:28 Chloride 106 mmol/L (98-107) 07/09/17 06:28 Carbon Dioxide 25 mmol/L (22-30) 07/09/17 06:28 Anion Gap 8 (10-20) L 07/09/17 06:28 BUN 13 mg/dL (9-20) 07/09/17 06:28 Creatinine 0.8 mg/dL (0.8-1.5) 07/09/17 06:28 Est GFR ( Amer) > 60 07/09/17 06:28 Est GFR (Non-Af Amer) > 60 07/09/17 06:28 Random Glucose 75 mg/dL (75-110) 07/09/17 06:28 Hemoglobin A1c 5.6 % (4.2-6.5) 07/06/17 06:00 Calcium 7.4 mg/dl (8.6-10.4) L 07/09/17 06:28 Phosphorus 2.9 mg/dL (2.5-4.5) 07/09/17 06:28 Magnesium 1.7 mg/dL (1.6-2.3) 07/09/17 06:28 Iron 24 ug/dL (49-181) L 07/05/17 17:39 TIBC 240 ug/dL (250-450) L 07/05/17 17:39 % Saturation 10 (20-55) L 07/05/17 17:39 Ferritin 19.0 ng/mL 07/05/17 17:30 Total Bilirubin 0.1 mg/dL (0.2-1.3) L 07/09/17 06:28 AST 18 U/L (17-59) 07/09/17 06:28 ALT 38 U/L (21-72) 07/09/17 06:28 Alkaline Phosphatase 57 U/L (38-126) 07/09/17 06:28 Total Protein 5.8 g/dL (6.3-8.3) L 07/09/17 06:28 Albumin 2.6 g/dL (3.5-5.0) L 07/09/17 06:28 Globulin 3.2 gm/dL (2.2-3.9) 07/09/17 06:28 Albumin/Globulin Ratio 0.8 (1.0-2.1) L 07/09/17 06:28 Triglycerides 56 mg/dL (0-149) 07/06/17 06:00 Cholesterol 142 mg/dL (0-199) 07/06/17 06:00 LDL Cholesterol Direct 49 mg/dL (0-129) 07/06/17 06:00 HDL Cholesterol 69 mg/dL (30-70) 07/06/17 06:00 Lipase 23 U/L (23-300) 07/05/17 09:05 Vitamin B12 501 pg/mL (239-931) 07/05/17 17:30 Folate > 20.0 ng/mL 07/05/17 17:30 Venous Blood Potassium 3.8 mmol/L (3.6-5.2) 07/05/17 13:12 Urine Color Yellow (YELLOW) 07/05/17 08:58 Urine Clarity Clear (Clear) 07/05/17 08:58 Urine pH 5.0 (5.0-8.0) 07/05/17 08:58 Ur Specific Clements 1.020 (1.003-1.030) 07/05/17 08:58 Urine Protein Negative mg/dL (NEGATIVE) 07/05/17 08:58 Urine Glucose (UA) Normal mg/dL (Normal) 07/05/17 08:58 Urine Ketones Trace mg/dL (NEGATIVE) 07/05/17 08:58 Urine Blood Negative (NEGATIVE) 07/05/17 08:58 Urine Nitrate Negative (NEGATIVE) 07/05/17 08:58 Urine Bilirubin Negative (NEGATIVE) 07/05/17 08:58 Urine Urobilinogen Normal mg/dL (0.2-1.0) 07/05/17 08:58 Ur Leukocyte Esterase Neg Gonzales/uL (Negative) 07/05/17 08:58 Urine WBC (Auto) 1 /hpf (0-5) 07/05/17 08:58 Urine RBC (Auto) 1 /hpf (0-3) 07/05/17 08:58 Ur Squamous Epith Cells < 1 /hpf (0-5) 07/05/17 08:58 Urine Bacteria Rare (<OCC) 07/05/17 08:58 Stool Occult Blood Positive (NEGATIVE) H 07/06/17 16:29 Stool Leukocytes, Qual Negative (NEGATIVE) 07/05/17 19:13 Urine Opiates Screen Positive (NEGATIVE) H 07/05/17 08:58 Urine Methadone Screen Negative (NEGATIVE) 07/05/17 08:58 Ur Barbiturates Screen Negative (NEGATIVE) 07/05/17 08:58 Ur Phencyclidine Scrn Negative (NEGATIVE) 07/05/17 08:58 Ur Amphetamines Screen Negative (NEGATIVE) 07/05/17 08:58 U Benzodiazepines Scrn Negative (NEGATIVE) 07/05/17 08:58 U Oth Cocaine Metabols Negative (NEGATIVE) 07/05/17 08:58 U Cannabinoids Screen Negative (NEGATIVE) 07/05/17 08:58 Alcohol, Quantitative < 10 mg/dl (0-10) 07/05/17 09:05 C. difficile Ag & Toxin Negative (NEGATIVE) 07/05/17 19:13 Blood Type O POSITIVE 07/05/17 17:33 Antibody Screen Negative 07/05/17 17:33 - Hospital Course Hospital Course: Upon Admission: CC: Abdominal Pain HPI: 66M with PMHx of HTN and DM presented to the ED with fever, chills, nausea , vomiting, abdominal pain, diarrhea, and melena x 1 week. Patient reports he had an unknown abdominal surgery 1 year ago [place] [facility] [place] [facility]. After questioning him he admitted the surgeries involved a hernia repair, colostomy and reversal of the colostomy. He was admitted to [facility] for 2-3 weeks, 1 month ago. Patient does not know what exams were performed or the results of those examinations. He does not recall having an EGD, colonoscopy , or another surgery. Medical records will be retrieved from [facility]. Denied blurry vision, chest pain, SOB, or urinary symptoms. PMHx: HTN, DM PSHx: abdominal surgery Meds: patient cannot recall name of BP medications All: NKDA SHx: Denied x 3 FHx: Unremarkable Throughout Hospital Course: Patient was admitted for colitis and anemia. 66M with PMHx of HTN and DM presented to the ED with fever, chills, nausea, vomiting, abdominal pain, diarrhea, and melena x 1 week. History of surgeries involved a hernia repair, colostomy and reversal of the colostomy. 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 Red - help appreciated - patient is clinically better - patient is to follow up with his surgeon in [facility] GI consulted - Dr. Denny - help appreciated Afebrile, no tachycardia, no leukocytosis with left shift, lactate 0.6 CT Abdomen & Pelvis (07/05): Segmental severe right colon wall thickening noted at the splenic flexure and proximal descending colon consistent with colitis. The differential diagnosis includes infection inflammatory or ischemic colitis. Moderately dilated small bowel loops at the left abdomen and partially collapsed small bowel loops at the right abdomen. The oral contrast seen in the small bowel at the left abdomen and in the descending colon. The possibility of small to large bowel fistula is not totally excluded. Correlation with prior study and prior surgical history is suggested. Mildly dilated biliary tree and main pancreatic duct noted. Fullness noted at the pancreatic head without evidence of discrete mass in this study. Mild abdominal and pelvic lymphadenopathy. Moderate anasarca. Surgery reccs: Advanaced diet as tolerated started on CLD. pt should follow up with original surgeon at [facility] following d/c or he can follow up with Dr. Ko here at [facility]. Colonoscopy: No erythema or ulcers seen. Will need a repeat colonoscopy in 1 year 2/2 poor bowel prep EGD: Patient has 2 obstructing non-bleeding cratered gastric and duodenal ulcer both 30mm. F/U H. Pylori Medications: NS @ 100cc/hr Cipro 400mg IVP Q12 and Flagyl Q8H - started 07/05/17 Tylenol PRN for fever, Morphine PRN for pain, Zofran PRN for nausea/vomiting Florastor 250mg PO BID Labs: Follow up: blood culture Stool cultures - negative Stool occult - + 07/06/17 Melena Anemia GI Consulted - Dr. Denny- help appreciated Baseline hemoglobin 2016 was 11.5, currently 8.5 Transfused 1 unit of PRBCs, hemoglobin now stable Labs: Anemia Workup - iron deficiency anemia - will need to be started on Iron after infectious process has resolved Stool Occult x3, Stool cultures, CDiff Stool occult - + 07/06/17 Hx of Abdominal Surgeries As per patient, hernia repair, colostomy and colostomy reversal within the last year Records will be retrieved from [facility] (consent faxed and in chart) Hx HTN Increased Norvasc 10mg PO daily - was on 5mg PO daily Hydralazine 10mg IVP PRN for SBP >160 hold if HR <60 Labs: Lipid panel - WNL Hx DM A1C- 5.6 UDS + for opiates ETOH <10 This is a brief summary of the patient's hospital course, please review EMR for full record. Discharge Exam - Head Exam Head Exam: NORMOCEPHALIC - Additional Findings Additional findings: - Constitutional Appears: Unkempt - Head Exam Head Exam: NORMAL INSPECTION, NORMOCEPHALIC - Eye Exam Eye Exam: EOMI, Normal appearance, PERRL Pupil Exam: NORMAL ACCOMODATION - ENT Exam ENT Exam: Mucous Membranes Dry - Respiratory Exam Respiratory Exam: Clear to Auscultation Bilateral. absent: Decreased Breath Sounds, Wheezes - Cardiovascular Exam Cardiovascular Exam: Tachycardia. absent: Systolic Murmur - GI/Abdominal Exam GI & Abdominal Exam: Soft, Tenderness (LLQ RLQ). absent: Distended Additional comments: Midline surgical scar, extending to RLQ - Rectal Exam Rectal Exam: Deferred - Extremities Exam Extremities exam: Positive for: normal inspection, pedal pulses present. Negative for: pedal edema, tenderness - Neurological Exam Neurological exam: Alert, CN II-XII Intact, Oriented x3 - Psychiatric Exam Psychiatric exam: Normal Affect, Normal Mood - Skin Skin Exam: Dry, Intact, Normal Color, Warm Discharge Plan - Discharge Medications Prescriptions: amLODIPine [Norvasc] 10 mg PO DAILY #30 tab Ciprofloxacin HCl [Cipro] 500 mg PO BID #6 tablet Metronidazole [Flagyl] 500 mg PO Q8H #9 tablet Pantoprazole Sodium [Protonix] 40 mg PO DAILY #30 ect Saccharomyces Boulardi [Florastor] 250 mg PO BID #60 cap Sucralfate [Carafate Tab] 1 gm PO QID #120 tab - Follow Up Plan Condition: FAIR Disposition: HOME/ ROUTINE Instructions: Ciprofloxacin (By mouth), Sucralfate (By mouth), Metronidazole ( By mouth), Amlodipine (By mouth), Pantoprazole (By mouth), Probiotic (By mouth) , Colonoscopy (DC), Heart Healthy Diet (DC), Ulcerative Colitis (DC), Upper Endoscopy (DC) Additional Instructions: You are to continue taking the following medications: Cipro 500mg by mouth twice a day x 3 days, Flagyl 500mg by mouth 3 times a day for 3 days Norvasc 10mg by mouth daily for your blood pressure Florastor 250mg by mouth twice a day for 1 month - to help prevent your stomach from hurting from the antibiotics Protonix 40mg by mouth daily and Carafate 1 gram by mouth 4 times a day for 1 month - to help with your two ulcers Please follow up with either the surgeon in [facility] or our surgeon Dr. Ko, number will be given to you upon discharge. Referrals: [facility] [Outside] [facility] [Outside] Satish Ko MD [Staff Provider] - <Harvey Hilton - Last Filed: 07/09/17 14:01> Provider - Provider Date of Admission: 07/05/17 14:10 Attending physician: Harvey Hilton, DO Hospital Course - Lab Results Lab Results: Micro Results 07/05/17 13:30 Blood Blood Culture - Preliminary NO GROWTH AFTER 3 DAYS 07/05/17 14:00 Blood Blood Culture - Preliminary NO GROWTH AFTER 3 DAYS 07/05/17 19:13 Stool Ova and Parasite Concentrate Exam - Final 07/05/17 19:13 Stool Stool Culture - Final NO SALMONELLA, SHIGELLA OR CAMPYLOBACTER ISOLATED. Most Recent Lab Values WBC 4.2 K/uL (4.8-10.8) L 07/09/17 06:28 RBC 3.42 Mil/uL (4.40-5.90) L 07/09/17 06:28 Hgb 8.9 g/dL (12.0-18.0) L 07/09/17 06:28 Hct 27.5 % (35.0-51.0) L 07/09/17 06:28 MCV 80.3 fL (80.0-94.0) 07/09/17 06:28 MCH 26.1 pg (27.0-31.0) L 07/09/17 06:28 MCHC 32.5 g/dL (33.0-37.0) L 07/09/17 06:28 RDW 18.4 % (11.5-14.5) H 07/09/17 06:28 Plt Count 282 K/uL (130-400) 07/09/17 06:28 MPV 8.1 fL (7.2-11.7) 07/09/17 06:28 Neut % (Auto) 71.8 % (50.0-75.0) 07/09/17 06:28 Lymph % (Auto) 18.7 % (20.0-40.0) L 07/09/17 06:28 Leake % (Auto) 8.1 % (0.0-10.0) 07/09/17 06:28 Eos % (Auto) 0.9 % (0.0-4.0) 07/09/17 06:28 Baso % (Auto) 0.5 % (0.0-2.0) 07/09/17 06:28 Neut # 3.0 K/uL (1.8-7.0) 07/09/17 06:28 Lymph # 0.8 K/uL (1.0-4.3) L 07/09/17 06:28 Leake # 0.3 K/uL (0.0-0.8) 07/09/17 06:28 Eos # 0.0 K/uL (0.0-0.7) 07/09/17 06:28 Baso # 0.0 K/uL (0.0-0.2) 07/09/17 06:28 Neutrophils % (Manual) 90 % (50-75) H 07/07/17 06:18 Band Neutrophils % 3 % (0-2) H 07/06/17 06:00 Lymphocytes % (Manual) 7 % (20-40) L 07/07/17 06:18 Monocytes % (Manual) 3 % (0-10) 07/07/17 06:18 Eosinophils % (Manual) 1 % (0-4) 07/05/17 09:05 Platelet Estimate Normal (NORMAL) 07/07/17 06:18 Polychromasia Slight 07/07/17 06:18 Hypochromasia (manual) Moderate 07/07/17 06:18 Poikilocytosis (manual Slight 07/06/17 06:00 Anisocytosis (manual) Slight 07/07/17 06:18 Microcytosis (manual) Slight 07/07/17 06:18 Target Cells Slight 07/07/17 06:18 PT 12.4 SECONDS (9.7-12.2) H 07/06/17 06:00 INR 1.1 07/06/17 06:00 APTT 36 SECONDS (21-34) H 07/06/17 06:00 pO2 51 mm/Hg (30-55) 07/05/17 13:12 VBG pH 7.42 (7.32-7.43) 07/05/17 13:12 VBG pCO2 38 mmHg (40-60) L 07/05/17 13:12 VBG HCO3 24.9 mmol/L 07/05/17 13:12 VBG Total CO2 25.8 mmol/L (22-28) 07/05/17 13:12 VBG O2 Sat (Calc) 88.8 % (40-65) H 07/05/17 13:12 VBG Base Excess 0.3 mmol/L (0.0-2.0) 07/05/17 13:12 VBG Potassium 3.8 mmol/L (3.6-5.2) 07/05/17 13:12 Sodium 138.0 mmol/l (132-148) 07/05/17 13:12 Chloride 109.0 mmol/L (98-107) H 07/05/17 13:12 Glucose 68 mg/dl (75-110) L 07/05/17 13:12 Lactate 0.6 mmol/L (0.7-2.1) L 07/05/17 13:12 Sodium 135 mmol/L (132-148) 07/09/17 06:28 Potassium 3.8 mmol/L (3.6-5.2) 07/09/17 06:28 Chloride 106 mmol/L (98-107) 07/09/17 06:28 Carbon Dioxide 25 mmol/L (22-30) 07/09/17 06:28 Anion Gap 8 (10-20) L 07/09/17 06:28 BUN 13 mg/dL (9-20) 07/09/17 06:28 Creatinine 0.8 mg/dL (0.8-1.5) 07/09/17 06:28 Est GFR ( Amer) > 60 07/09/17 06:28 Est GFR (Non-Af Amer) > 60 07/09/17 06:28 Random Glucose 75 mg/dL (75-110) 07/09/17 06:28 Hemoglobin A1c 5.6 % (4.2-6.5) 07/06/17 06:00 Calcium 7.4 mg/dl (8.6-10.4) L 07/09/17 06:28 Phosphorus 2.9 mg/dL (2.5-4.5) 07/09/17 06:28 Magnesium 1.7 mg/dL (1.6-2.3) 07/09/17 06:28 Iron 24 ug/dL (49-181) L 07/05/17 17:39 TIBC 240 ug/dL (250-450) L 07/05/17 17:39 % Saturation 10 (20-55) L 07/05/17 17:39 Ferritin 19.0 ng/mL 07/05/17 17:30 Total Bilirubin 0.1 mg/dL (0.2-1.3) L 07/09/17 06:28 AST 18 U/L (17-59) 07/09/17 06:28 ALT 38 U/L (21-72) 07/09/17 06:28 Alkaline Phosphatase 57 U/L (38-126) 07/09/17 06:28 Total Protein 5.8 g/dL (6.3-8.3) L 07/09/17 06:28 Albumin 2.6 g/dL (3.5-5.0) L 07/09/17 06:28 Globulin 3.2 gm/dL (2.2-3.9) 07/09/17 06:28 Albumin/Globulin Ratio 0.8 (1.0-2.1) L 07/09/17 06:28 Triglycerides 56 mg/dL (0-149) 07/06/17 06:00 Cholesterol 142 mg/dL (0-199) 07/06/17 06:00 LDL Cholesterol Direct 49 mg/dL (0-129) 07/06/17 06:00 HDL Cholesterol 69 mg/dL (30-70) 07/06/17 06:00 Lipase 23 U/L (23-300) 07/05/17 09:05 Vitamin B12 501 pg/mL (239-931) 07/05/17 17:30 Folate > 20.0 ng/mL 07/05/17 17:30 Venous Blood Potassium 3.8 mmol/L (3.6-5.2) 07/05/17 13:12 Urine Color Yellow (YELLOW) 07/05/17 08:58 Urine Clarity Clear (Clear) 07/05/17 08:58 Urine pH 5.0 (5.0-8.0) 07/05/17 08:58 Ur Specific Clements 1.020 (1.003-1.030) 07/05/17 08:58 Urine Protein Negative mg/dL (NEGATIVE) 07/05/17 08:58 Urine Glucose (UA) Normal mg/dL (Normal) 07/05/17 08:58 Urine Ketones Trace mg/dL (NEGATIVE) 07/05/17 08:58 Urine Blood Negative (NEGATIVE) 07/05/17 08:58 Urine Nitrate Negative (NEGATIVE) 07/05/17 08:58 Urine Bilirubin Negative (NEGATIVE) 07/05/17 08:58 Urine Urobilinogen Normal mg/dL (0.2-1.0) 07/05/17 08:58 Ur Leukocyte Esterase Neg Gonzales/uL (Negative) 07/05/17 08:58 Urine WBC (Auto) 1 /hpf (0-5) 07/05/17 08:58 Urine RBC (Auto) 1 /hpf (0-3) 07/05/17 08:58 Ur Squamous Epith Cells < 1 /hpf (0-5) 07/05/17 08:58 Urine Bacteria Rare (<OCC) 07/05/17 08:58 Stool Occult Blood Positive (NEGATIVE) H 07/06/17 16:29 Stool Leukocytes, Qual Negative (NEGATIVE) 07/05/17 19:13 Urine Opiates Screen Positive (NEGATIVE) H 07/05/17 08:58 Urine Methadone Screen Negative (NEGATIVE) 07/05/17 08:58 Ur Barbiturates Screen Negative (NEGATIVE) 07/05/17 08:58 Ur Phencyclidine Scrn Negative (NEGATIVE) 07/05/17 08:58 Ur Amphetamines Screen Negative (NEGATIVE) 07/05/17 08:58 U Benzodiazepines Scrn Negative (NEGATIVE) 07/05/17 08:58 U Oth Cocaine Metabols Negative (NEGATIVE) 07/05/17 08:58 U Cannabinoids Screen Negative (NEGATIVE) 07/05/17 08:58 Alcohol, Quantitative < 10 mg/dl (0-10) 07/05/17 09:05 C. difficile Ag & Toxin Negative (NEGATIVE) 07/05/17 19:13 Blood Type O POSITIVE 07/05/17 17:33 Antibody Screen Negative 07/05/17 17:33 Attending/Attestation - Attestation I have personally seen and examined this patient.: Yes I have fully participated in the care of the patient.: Yes I have reviewed all pertinent clinical information, including history, physical exam and plan: Yes Notes (Text): 07/09/17 14:01 Medical attending: Reviewed the above note by medical office coordinator, I also saw the patient with the medical office coordinator and agree with above. The patient will have to try to follow-up either with the surgery at [facility] or female longer wants to go there we suggested to him that he will need to follow here at [facility] for future surgical evaluations. He will need to take Cipro and Flagyl by mouth for a few more days The patient underwent both colonoscopy and EGD. The EGD showed a very large gastric ulcers. It will be very important for him to be on Protonix, and we also gave him Carafate as well. He has been tolerating his diet quite well since yesterday. Hemoglobin is stable at this time Thank you so much, Harvey Hilton
[2017-07-09 08:40] VITALS: BP 159/86; PULSE 75; RESP 18; TEMP 98.3; O2SAT 100
[2017-07-09] MEDS: Saccharomyces Boulardi 250 mg Cap PO SCH (10:36)
--- NOTE | 2017-07-09 10:46 | CP.PCM.PN ---
Subjective - Date & Time of Evaluation Date of Evaluation: 07/09/17 Time of Evaluation: 10:43 - Subjective Subjective: CC: Follow up ulcers Feels well. Tolerating solid foods. wants to go home. No Surgical plans Discussed with dr Hilton Objective - Vital Signs/Intake and Output Vital Signs (last 24 hours): Temp Pulse Resp BP Pulse Ox 98.3 F 75 18 159/86 H 100 07/09/17 08:39 07/09/17 08:39 07/09/17 08:39 07/09/17 08:39 07/09/17 08:39 Intake and Output: 07/09/17 07/09/17 06:59 18:59 Intake Total 300 Balance 300 - Medications Medications: Current Medications Acetaminophen (Tylenol 325mg Tab) 650 mg PO Q6 PRN PRN Reason: Fever >100.4 F Amlodipine Besylate (Norvasc) 10 mg PO DAILY [facility] Last Admin: 07/09/17 10:36 Dose: 10 mg Hydralazine HCl (Apresoline) 10 mg IVP Q6H PRN PRN Reason: Systolic Blood Pressure > 160 Last Admin: 07/06/17 17:40 Dose: 10 mg Metronidazole (Flagyl) 500 mg in 100 mls @ 100 mls/hr IVPB Q8 [facility] Last Admin: 07/09/17 06:22 Dose: 100 mls/hr Ciprofloxacin (Cipro 400mg/200ml Dsw) 400 mg in 200 mls @ 133 mls/hr IVPB Q12H [facility] Last Admin: 07/09/17 01:04 Dose: 133 mls/hr Ketorolac Tromethamine (Toradol) 30 mg IVP Q6 PRN PRN Reason: Pain, moderate (4-7) Last Admin: 07/08/17 22:43 Dose: 30 mg Ondansetron HCl (Zofran Inj) 4 mg IVP Q6 PRN PRN Reason: Nausea/Vomiting Pantoprazole Sodium (Protonix Inj) 40 mg IVP DAILY [facility] Last Admin: 07/09/17 10:36 Dose: 40 mg Saccharomyces Boulardii (Florastor) 250 mg PO BID [facility] Last Admin: 07/09/17 10:36 Dose: 250 mg Sucralfate (Carafate Tab) 1 gm PO QID [facility] Last Admin: 07/09/17 10:37 Dose: 1 gm - Labs Labs: 07/09/17 06:28 07/09/17 06:28 PT 12.4 SECONDS (9.7-12.2) H 07/06/17 06:00 INR 1.1 07/06/17 06:00 APTT 36 SECONDS (21-34) H 07/06/17 06:00 - Constitutional Appears: Well, No Acute Distress - Head Exam Head Exam: NORMOCEPHALIC - Eye Exam Eye Exam: absent: Scleral icterus - Neck Exam Neck Exam: Normal Inspection - Respiratory Exam Respiratory Exam: NORMAL BREATHING PATTERN - Cardiovascular Exam Cardiovascular Exam: REGULAR RHYTHM - GI/Abdominal Exam GI & Abdominal Exam: Soft. absent: Tenderness, Mass - Neurological Exam Neurological Exam: Awake, Oriented x3 Assessment and Plan (1) Colitis Assessment & Plan: Reactive changes secondary to surrounding inflammation from ulcers. No apparent colitis on Colonoscopy treat underlying ulcers with PPI Status: Acute (2) Anemia Assessment & Plan: Due to ulcers. No active bleeding. Hgb now stable Status: Acute (3) Diarrhea Status: Acute (4) Diabetes mellitus Status: Acute (5) Peptic ulcer disease Assessment & Plan: Large and DU with possible fistulization rec: [employer] PPI. Surgical follow up. Check pathology for H Pylori and/or malignancy. Discussed with Dr Hilton. Status: Acute
--- NOTE | 2017-07-09 17:39 | CP.PCM.PN ---
<Mihaela Velasco - Last Filed: 07/09/17 17:35> Subjective - Date & Time of Evaluation Date of Evaluation: 07/08/17 Time of Evaluation: 12:00 - Subjective Subjective: General Surgery Dr. Red Pt S&E after EGD performed today. Pt tolerated the procedure well w/ no complications. Objective - Vital Signs/Intake and Output Vital Signs (last 24 hours): Temp Pulse Resp BP Pulse Ox 98.3 F 75 18 159/86 H 100 07/09/17 08:39 07/09/17 08:39 07/09/17 08:39 07/09/17 08:39 07/09/17 08:39 Intake and Output: 07/09/17 07/09/17 06:59 18:59 Intake Total 300 Balance 300 - Labs Labs: 07/09/17 06:28 07/09/17 06:28 PT 12.4 SECONDS (9.7-12.2) H 07/06/17 06:00 INR 1.1 07/06/17 06:00 APTT 36 SECONDS (21-34) H 07/06/17 06:00 - Constitutional Appears: Non-toxic, No Acute Distress - Head Exam Head Exam: NORMAL INSPECTION - Eye Exam Eye Exam: Normal appearance - ENT Exam ENT Exam: Mucous Membranes Moist - Respiratory Exam Respiratory Exam: NORMAL BREATHING PATTERN. 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 pylori - Protonix BID - f/u GI recs - pt instructed to follow up w/ former surgeon for Tx Pt discussed w/ Dr. Teofilo Velasco DO PGY2 <Francisco J Red - Last Filed: 07/09/17 18:07> Objective - Vital Signs/Intake and Output Vital Signs (last 24 hours): Temp Pulse Resp BP Pulse Ox 98.3 F 75 18 159/86 H 100 07/09/17 08:39 07/09/17 08:39 07/09/17 08:39 07/09/17 08:39 07/09/17 08:39 Intake and Output: 07/09/17 07/09/17 06:59 18:59 Intake Total 300 Balance 300 - Labs Labs: 07/09/17 06:28 07/09/17 06:28 PT 12.4 SECONDS (9.7-12.2) H 07/06/17 06:00 INR 1.1 07/06/17 06:00 APTT 36 SECONDS (21-34) H 07/06/17 06:00 Attending/Attestation - Attestation I have personally seen and examined this patient.: Yes I have fully participated in the care of the patient.: Yes I have reviewed all pertinent clinical information, including history, physical exam and plan: Yes Notes (Text): Pt was seen and examined at bedside Agree with above note and assessment Pt with chronic Gastrocolic fistula Pt is improving clinically and tolerating diet Pt can be DC home with f/u with original surgeon at [facility] [place] c.w current mx Plan d.w pt in detail Risk and benefit explained in detail.
== END 2017-07-09 14:26 | disposition home or self-care (01) | DRG 392 ==
LOC: C.ER 08:08 → C.9E 14:10 → C.3T 15:58 → C.9E 16:30 → C.6T 17:29
PROVIDERS: ADMIT Hospitalist; ATTEND Hospitalist
PROC: 30233N1 Transfusion of Nonautologous Red Blood Cells into Peripheral Vein, Percutaneous Approach (ICD-10-PCS; principal; 2017-07-05)
PROC: 0DBE8ZX Excision of Large Intestine, Via Natural or Artificial Opening Endoscopic, Diagnostic (ICD-10-PCS; 2017-07-07)
PROC: 0DB88ZX Excision of Small Intestine, Via Natural or Artificial Opening Endoscopic, Diagnostic (ICD-10-PCS; 2017-07-08)
DX: K52.89 Other specified noninfective gastroenteritis and colitis (principal); K31.6 Fistula of stomach and duodenum; K26.9 Duodenal ulcer, unspecified as acute or chronic, without hemorrhage or perforation; R18.8 Other ascites; E11.9 Type 2 diabetes mellitus without complications; F11.90 Opioid use, unspecified, uncomplicated; D50.9 Iron deficiency anemia, unspecified; F17.210 Nicotine dependence, cigarettes, uncomplicated; K92.1 Melena; I10 Essential (primary) hypertension; Z59.0 Homelessness

== ENCOUNTER 2017-07-09 21:24 | Emergency (ER) | payer MEDICARE ==
[2017-07-09 21:25] VITALS: BMI 20.5
--- NOTE | 2017-07-09 21:27 | C.PDOC ---
History Of Present Illness Patient presents to the ER with a complaint of left abdominal pain that began earlier today. Patient was just discharged home this afternoon after being hospitalized for the past few days for similar complaints. Patient had an EGD done this morning, was tolerating PO, and was discharged home on antacid medications and antibiotics. Patient was found to have a large gastric and duodenal ulcer, awaiting pathology result. Denies fever, chills, nausea, or vomiting. Time Seen by Provider: 07/09/17 21:26 History Per: Patient History/Exam Limitations: no limitations Onset/Duration Of Symptoms: Hrs Current Symptoms Are (Timing): Still Present Recent travel outside of the [place]: No Past Medical History Reviewed: Historical Data, Nursing Documentation, Vital Signs Vital Signs: Last Vital Signs Temp 98.0 F 07/10/17 02:07 Pulse 77 07/10/17 04:47 Resp 14 07/10/17 04:47 BP 153/92 H 07/10/17 04:47 Pulse Ox 99 07/10/17 04:47 - Medical History PMH: HTN Surgical History: Endoscopy Family History: States: Unknown Family Hx - Social History Hx Alcohol Use: Yes (at times) Hx Substance Use: No (pt. denies) - Immunization History Hx Tetanus Toxoid Vaccination: No Hx Influenza Vaccination: No Hx Pneumococcal Vaccination: No Review Of Systems Constitutional: Negative for: Fever, Chills Gastrointestinal: Positive for: Abdominal Pain. Negative for: Nausea, Vomiting Physical Exam - Physical Exam Appears: Non-toxic Skin: Warm, Dry Head: Normacephalic Oral Mucosa: Moist Chest: Symmetrical, No Tenderness Cardiovascular: Rhythm Regular Respiratory: No Rales, No Rhonchi, No Wheezing Gastrointestinal/Abdominal: Soft, Tenderness (Diffuse), No Guarding, No Rebound , Other (Tympanic to percussion. Numerous old healed surgical scars.) Neurological/Psych: Oriented x3 ED Course And Treatment - Laboratory Results Result Diagrams: 07/09/17 21:46 07/09/17 21:46 O2 Sat by Pulse Oximetry: 100 Pulse Ox Interpretation: Normal - Radiology CXR: Interpreted by Me, Viewed By Me CXR Interpretation: No: Infiltrates, Fracture, Pnemothorax - Other Rad obstre X-Ray: Interpreted by Me, Viewed By Me Interpretation: lots of stool and gas, no free air or obstr Progress Note: Blood work and obstructive series ordered. Seen by the surgical dressing maker. No surgery until the gastric biopsy results are back Reevaluation Time: 05:50 Reassessment Condition: Improved Disposition Counseled Patient/Family Regarding: Studies Performed, Diagnosis, Need For Followup, Rx Given - Disposition Referrals: Satish Ko MD [Staff Provider] - Disposition: HOME/ ROUTINE Disposition Time: 21:26 Condition: FAIR Additional Instructions: please fill all your prescriptions Prescriptions: oxyCODONE/Acetaminophen [Percocet 5/325 mg Tab] 1 tab PO TID PRN #12 tab PRN Reason: Pain Instructions: Abdominal Pain (ED) - Clinical Impression Clinical Impression: Abdominal pain - Scribe Statement The provider has reviewed the documentation as recorded by the Scribe Jackson Rashid All medical record entries made by the Francibe were at my direction and personally dictated by me. I have reviewed the chart and agree that the record accurately reflects my personal performance of the history, physical exam, medical decision making, and the department course for this patient. I have also personally directed, reviewed, and agree with the discharge instructions and disposition.
[2017-07-09 21:51] LABS: BASO % 0.2 % (0.0-2.0); EOS % 0.9 % (0.0-4.0); LYMPH # 0.8 K/uL (1.0-4.3); LYMPH % 14.9 % (20.0-40.0); MEAN CELL VOLUME 80.8 fL (80.0-94.0); MEAN CORPUSCULAR HEMOGLOBIN 25.4 pg (27.0-31.0); MEAN CORPUSCULAR HGB CONC 31.5 g/dL (33.0-37.0); MEAN PLATELET VOLUME 7.7 fL (7.2-11.7); MONO # 0.3 K/uL (0.0-0.8); MONO % 5.5 % (0.0-10.0); RED CELL DISTRIBUTION WIDTH 18.3 % (11.5-14.5); WHITE BLOOD COUNT 5.5 K/uL (4.8-10.8)
[2017-07-09 22:03] LABS: ALB/GLOB RATIO 1.1 (1.0-2.1); ALKALINE PHOSPHATASE 74 U/L (38-126); ALT/SGPT 32 U/L (21-72); AST/SGOT 19 U/L (17-59); BILIRUBIN,TOTAL 0.2 mg/dL (0.2-1.3); BLOOD UREA NITROGEN 19 mg/dL (9-20); CALCIUM 7.8 mg/dl (8.6-10.4); CARBON DIOXIDE 27 mmol/L (22-30); CHLORIDE 104 mmol/L (98-107); GFR AFRICAN-AMERICAN > 60; GLUCOSE,RANDOM 113 mg/dL (75-110); POTASSIUM 4.3 mmol/L (3.6-5.2); SODIUM 135 mmol/L (132-148)
[2017-07-10 05:51] VITALS: O2SAT 100
[2017-07-10 06:07] VITALS: BP 161/94; PULSE 71; RESP 16; TEMP 98.3
--- NOTE | 2017-07-10 10:36 | RAD ---
PROCEDURE: Radiographs of the chest and abdomen (obstructive series) HISTORY: Abdominal pain, s/p egd COMPARISON: 07/08/2017 TECHNIQUE: AP radiograph of the chest, with upright and supine radiographs of the abdomen. FINDINGS: CHEST: Lungs: The lungs are well inflated and clear. Cardiovascular: Normal size heart. No pulmonary vascular congestion. Pleura: No pleural fluid. No pneumothorax. Other findings: None. ABDOMEN AND PELVIS: Bowel: There is mild dilatation of its gas-filled small bowel loops in the left upper quadrant. A running suture is also identified in the left upper quadrant. There is moderate amount of stool in the colon. The bowel gas pattern is non obstructed. Free air: None. Bones: Unremarkable. Other findings: None. IMPRESSION: Mild dilatation of the colon is filled small bowel loops in the left upper quadrant. Nonobstructive bowel-gas pattern. Constipation.
== END 2017-07-10 07:03 | disposition home or self-care (01) ==
LOC: C.ER 21:24
DX: R10.9 Unspecified abdominal pain (principal); I10 Essential (primary) hypertension
CPT/HCPCS: 74022; 80053; 83690; 85025; 96374; 96375; 99285; J1885; J2270

== ENCOUNTER 2017-12-25 20:19 | Emergency (ER) | payer MEDICARE ==
[2017-12-25 20:19] VITALS: BMI 20.5
[2017-12-25 20:32] VITALS: RESP 18
--- NOTE | 2017-12-25 20:34 | C.PDOC ---
History Of Present Illness 67 year old male is brought into the emergency department by ambulance after being found sleeping on the street. Patient is not answering questions at this time. Time Seen by Provider: 12/25/17 20:33 Chief Complaint (Nursing): Substance Abuse History Per: EMS History/Exam Limitations: other Onset/Duration Of Symptoms: Hrs Current Symptoms Are (Timing): Still Present Severity: Moderate Pain Scale Rating Of: 4 Past Medical History Reviewed: Historical Data, Nursing Documentation, Vital Signs Vital Signs: Last Vital Signs Temp 98.0 F 12/26/17 04:14 Pulse 67 12/26/17 04:14 Resp 18 12/26/17 04:14 BP 123/77 12/26/17 04:14 Pulse Ox 99 12/26/17 04:14 - Medical History PMH: HTN Denies: Chronic Kidney Disease Surgical History: Endoscopy - [facility] Procedures EXCISION OF LARGE INTESTINE, ENDO, DIAGN (07/05/17) EXCISION OF SMALL INTESTINE, ENDO, DIAGN (07/05/17) TRANSFUSE NONAUT RED BLOOD CELLS IN PERIPH VEIN, PERC (07/05/17) Family History: States: No Known Family Hx - Social History Hx Alcohol Use: Yes (at times) Hx Substance Use: No (pt. denies) - Immunization History Hx Tetanus Toxoid Vaccination: No Hx Influenza Vaccination: No Hx Pneumococcal Vaccination: No Review Of Systems Review Of Systems: ROS cannot be obtained secondary to pt's inabilty to answer questions. Physical Exam - Physical Exam Appears: Non-toxic, No Acute Distress Skin: Warm, Dry Head: Atraumatic Eye(s): bilateral: PERRL (pinpoint) Oral Mucosa: Moist Neck: Trachea Midline, Supple Cardiovascular: Rhythm Regular Respiratory: No Rales, No Rhonchi, No Wheezing Gastrointestinal/Abdominal: Bowel Sounds, Soft, No Tenderness, No Distention Back: Normal Inspection Extremity: Bilateral: Atraumatic, Normal ROM Pulses: Left Dorsalis Pedis: Normal, Right Dorsalis Pedis: Normal ED Course And Treatment - Laboratory Results Result Diagrams: 12/25/17 21:00 12/25/17 21:00 O2 Sat by Pulse Oximetry: 100 (RA) Pulse Ox Interpretation: Normal Progress Note: Plan: Alcohol Serum. CMP. Drug Screen. CBC. Glucose, POC. Narcan 1mg IVP. NaCl IV Fluids. Urinalysis Reevaluation Time: 05:17 Reassessment Condition: Improved Disposition Counseled Patient/Family Regarding: Studies Performed, Diagnosis, Need For Followup - Disposition Referrals: [facility] at [facility] [Outside] Disposition: HOME/ ROUTINE Disposition Time: 20:34 Condition: FAIR Instructions: Alcohol Abuse and Alcoholism (DC), Polysubstance Abuse (DC) Forms: [employer] (Portuguese) - Clinical Impression Clinical Impression: Drug abuse - Scribe Statement The provider has reviewed the documentation as recorded by the Scribe (Alfie Cardona) Provider Attestation: All medical record entries made by the Scribe were at my direction and personally dictated by me. I have reviewed the chart and agree that the record accurately reflects my personal performance of the history, physical exam, medical decision making, and the department course for this patient. I have also personally directed, reviewed, and agree with the discharge instructions and disposition.
[2017-12-25] MEDS ORDERED: Naloxone 0.4 mg/ml Inj (Adult) IVP STA (20:41)
[2017-12-25] MEDS ORDERED: Sodium Chloride 0.9% 1,000 ML IV ONE (20:41)
[2017-12-25] MEDS ORDERED: Naloxone 0.4 mg/ml Inj (Adult) ONE ×2 (20:46→22:38)
[2017-12-25 21:08] LABS: BASO % 0.6 % (0.0-2.0); EOS # 0.2 K/uL (0.0-0.7); EOS % 2.6 % (0.0-4.0); HEMOGLOBIN 8.9 g/dL (12.0-18.0); LYMPH # 1.8 K/uL (1.0-4.3); MEAN CELL VOLUME 79.4 fL (80.0-94.0); MEAN CORPUSCULAR HEMOGLOBIN 25.4 pg (27.0-31.0); MEAN CORPUSCULAR HGB CONC 31.9 g/dL (33.0-37.0); MEAN PLATELET VOLUME 8.1 fL (7.2-11.7); MONO # 0.3 K/uL (0.0-0.8); MONO % 5.4 % (0.0-10.0); NEUT # 3.9 K/uL (1.8-7.0); NEUT % 62.4 % (50.0-75.0); RBC 3.49 Mil/uL (4.40-5.90); RED CELL DISTRIBUTION WIDTH 18.6 % (11.5-14.5); WHITE BLOOD COUNT 6.2 K/uL (4.8-10.8)
[2017-12-25 21:26] LABS: ALBUMIN 3.9 g/dL (3.5-5.0); ALT/SGPT 26 U/L (21-72); AST/SGOT 22 U/L (17-59); BLOOD UREA NITROGEN 29 mg/dL (9-20); CALCIUM 8.9 mg/dl (8.6-10.4); GFR AFRICAN-AMERICAN > 60; GFR NON-AFRICAN AMERICAN > 60
[2017-12-25] MEDS ORDERED: Naloxone 0.4 mg/ml Inj (Adult) IVP ONE (22:02)
[2017-12-26 05:49] VITALS: BP 124/70; PULSE 64; TEMP 99.1; O2SAT 97
== END 2017-12-26 06:00 | disposition home or self-care (01) ==
LOC: C.ER 20:19
DX: F19.10 Other psychoactive substance abuse, uncomplicated (principal)
CPT/HCPCS: 80053; 82948; 85025; 96361; 96374; 96376; 99285; G0480; J2310; J7030

== ENCOUNTER 2018-05-30 08:55 | Emergency (ER) | payer MEDICARE ==
[2018-05-30 09:08] VITALS: RESP 18; BMI 21.2
--- NOTE | 2018-05-30 10:02 | C.PDOC ---
History Of Present Illness 67 year old male, with possible hernia repair and colectomy last year, presents to the ED for evaluation of left lower quadrant abdominal pain which began 2 days ago. Patient states symptoms are associated with nausea and vomiting. P atient denies fever, chills, back pain, urinary symptoms. Time Seen by Provider: 05/30/18 09:25 Chief Complaint (Nursing): Abdominal Pain History Per: Patient History/Exam Limitations: no limitations Onset/Duration Of Symptoms: Days (2) Current Symptoms Are (Timing): Still Present Location Of Pain/Discomfort: LLQ Radiation Of Pain To:: None Quality Of Discomfort: "Pain" Associated Symptoms: denies: Fever, Chills, Nausea, Vomiting, Urinary Symptoms Additional History Per: Patient Past Medical History Reviewed: Historical Data, Nursing Documentation, Vital Signs Vital Signs: Last Vital Signs Temp 99.3 F 05/30/18 09:03 Pulse 89 05/30/18 09:03 Resp 18 05/30/18 09:03 BP 165/105 H 05/30/18 09:03 Pulse Ox 94 L 05/30/18 09:03 - Medical History PMH: HTN Denies: Chronic Kidney Disease Surgical History: Endoscopy - [facility] Procedures EXCISION OF JEJUNUM, ENDO, DIAGN (01/28/18) EXCISION OF LARGE INTESTINE, ENDO, DIAGN (07/05/17) EXCISION OF SMALL INTESTINE, ENDO, DIAGN (07/05/17) EXCISION OF STOMACH, ENDO, DIAGN (01/28/18) TRANSFUSE NONAUT RED BLOOD CELLS IN PERIPH VEIN, PERC (01/18/18) Family History: States: Unknown Family Hx - Social History Hx Alcohol Use: Yes (pt denies) Hx Substance Use: No - Immunization History Hx Tetanus Toxoid Vaccination: No Hx Influenza Vaccination: No Hx Pneumococcal Vaccination: No Review Of Systems Constitutional: Negative for: Fever, Chills Gastrointestinal: Positive for: Abdominal Pain (left lower quadrant ). Negative for: Nausea, Vomiting Musculoskeletal: Negative for: Back Pain Physical Exam - Physical Exam Appears: Non-toxic, No Acute Distress Skin: Normal Color, Warm, Dry Head: Atraumatic, Normacephalic Eye(s): bilateral: Normal Inspection Oral Mucosa: Moist Neck: Supple Chest: Symmetrical, No Deformity, No Tenderness Cardiovascular: Rhythm Regular, No Murmur Respiratory: Normal Breath Sounds, No Rales, No Rhonchi, No Wheezing Gastrointestinal/Abdominal: Soft, Tenderness (moderate, to left lower quadrant ), No Distention, Guarding, No Rebound Back: No Vertebral Tenderness, No Paraspinal Tenderness Extremity: Normal ROM, Capillary Refill (less than 2 seconds ) Neurological/Psych: Oriented x3, Normal Speech, Normal Cognition ED Course And Treatment - Laboratory Results Result Diagrams: 05/30/18 10:44 05/30/18 10:44 O2 Sat by Pulse Oximetry: 94 (on RA) Pulse Ox Interpretation: Normal - Other Rad CXR X-Ray: Viewed By Me, Read By Radiologist Interpretation: Date of service: 05/30/2018. HISTORY: abd pain. COMPARISON: Include abdomen with chest. FINDINGS: LUNGS: No active pulmonary disease. PLEURA: No significant pleural effusion identified, no pneumothorax apparent. CARDIOVASCULAR: No aortic atherosclerotic calcification present. Normal cardiac size. No pulmonary vascular congestion. OSSEOUS STRUCTURES: No significant abnormalities. VISUALIZED UPPER ABDOMEN: Normal. OTHER FINDINGS: None. IMPRESSION: No interval acute cardiopulmonary disease appreciated. - CT Scan/US CT A/P Other Rad Studies (CT/US): Read By Radiologist, Radiology Report Reviewed CT/US Interpretation: Date of service: 05/30/2018. PROCEDURE: CT Abdomen and Pelvis with contrast. HISTORY: LLQ abd pain, vomiting, r/o obstru vs. diverticuli. COMPARISON: Abdomen pelvis CT with contrast 07/05/2017. TECHNIQUE: Following oral and intravenous contrast administration, a CT examination of the abdomen and pelvis performed from the domes of the diaphragms to the symphysis pubis with reformatted datasets provided not only axial but also sagittal and coronal series. Coronal and sagittal reformats were generated. contrast dose: Visipaque 320, 100 cc. Radiation dose: Total exam DLP = 386.85 mGy-cm. This CT exam was performed using one or more of the following dose reduction techniques: Automated exposure control, adjustment of the mA and/or kV according to patient size, and/or use of iterative reconstruction technique. FINDINGS: LOWER THORAX: Right upper lower lobe limited emphysematous changes reiterated. Bilateral basilar dependent atelectasis reiterated. No pleural or significant pericardial effusion identified. Hiatal hernia noted. LIVER: Unremarkable. No gross lesion or ductal dilatation. GALLBLADDER AND BILE DUCTS: Unremarkable. PANCREAS: Unremarkable. No gross lesion or ductal dilatation. SPLEEN: Unremarkable. ADRENALS: Unremarkable. No mass. KIDNEYS AND URETERS: Bilateral renal cysts are identified including dominant lower pole right renal cyst 3.1 cm and dominant left-sided renal cyst at the upper midpole measuring 3.3 cm. No obstructive uropathy bilaterally. No perinephric reactive change. VASCULATURE: Nonaneurysmal abdominal aortic calcific atherosclerotic changes are identified. BOWEL: Postoperative changes are identified in the left upper quadrant abdomen appear to involve the stomach and colon with unremarkable appearing as symmetric suture lines grossly. Segmental resection of the left hemicolon is felt to be present. There is small bits of gas associated with bowel at the left upper quadrant potentially reflecting decompressed bowel loops with limited residual luminal gas. Is difficult to exclude mural gas and therefore potential bowel ischemia at the left upper quadrant. Clinically correlate further. No suspicious distention of bowel loops is appreciated as previously shown however. Distal large bowel in the left lower quadrant appears adequately opacified and thin walled. No definite colitis pattern is appreciated at that segment. The mid to distal rectum however is quite thick walled with hazy perirectal fat suspicious for proctitis. Clinically correlate further. APPENDIX: Not identified. PERITONEUM: Unremarkable. No free fluid. No free air. LYMPH NODES: Unremarkable. No enlarged lymph nodes. BLADDER: Unremarkable. REPRODUCTIVE: Enlarged partially calcified prostate gland. BONES: No acute fracture. OTHER FINDINGS: None. IMPRESSION: 1. Segmental resection left hemicolon identified in the interval with anastomotic suture lines unremarkable appearing. Mid to distal proctitis suggested. No additional thick-walled colonic bowel identified. 2. Left upper quadrant postop changes may include the stomach. There 2 or 3 small-bowel loops in the left upper quadrant which appear completely collapsed with trace gas in the lumen is difficult to exclude mural gas however with potential for ischemic bowel not excluded. Further clinical correlation is advised as is understood the patient's pain signature is not in this location. No ascites or free air. 3. Stable bilateral renal cysts. Medical Decision Making Medical Decision Making: Progress: Bloodwork, urinalysis, CT A/P, CXR ordered and reviewed. Cipro PO and Flagyl PO given. On re-exam, the patient reports improvement of symptoms. Lungs are CTA, heart is RRR. Abdomen is soft, non-tender and the patient is tolerating PO well. Ambulatory in the Ed with steady gait. Follow up with the medical doctor within 1-2 days without fail. return if worsened. Disposition - Disposition Referrals: [facility] [Outside] Disposition: HOME/ ROUTINE Disposition Time: 14:34 Condition: STABLE Additional Instructions: Follow up with the medical doctor within 1-2 days without fail. return if worsened. Prescriptions: Acetaminophen [Tylenol] 325 mg PO Q6 PRN #30 tab PRN Reason: Pain, Mild (1-3) Ciprofloxacin [Cipro] 1 tab PO BID #14 tab metroNIDAZOLE [Flagyl] 500 mg PO BID #14 tab Instructions: Acute Abdomen (Belly Pain), Adult (DC) Forms: [employer] (Greenlandic) - Clinical Impression Clinical Impression: Colitis, Proctitis - PA / DRUG SAFETY COORDINATOR / Resident Statement MD/DO has reviewed & agrees with the documentation as recorded. - Scribe Statement The provider has reviewed the documentation as recorded by the Scribe (Mechelle Whitlock) All medical record entries made by the Scribe were at my direction and personally dictated by me. I have reviewed the chart and agree that the record accurately reflects my personal performance of the history, physical exam, medical decision making, and the department course for this patient. I have also personally directed, reviewed, and agree with the discharge instructions and disposition.
[2018-05-30] MEDS ORDERED: Iohexol 240 (50 ml) PO STA (10:03)
--- NOTE | 2018-05-30 10:19 | RAD ---
Date of service: 05/30/2018 HISTORY: abd pain COMPARISON: Include abdomen with chest. FINDINGS: LUNGS: No active pulmonary disease. PLEURA: No significant pleural effusion identified, no pneumothorax apparent. CARDIOVASCULAR: No aortic atherosclerotic calcification present. Normal cardiac size. No pulmonary vascular congestion. OSSEOUS STRUCTURES: No significant abnormalities. VISUALIZED UPPER ABDOMEN: Normal. OTHER FINDINGS: None. IMPRESSION: No interval acute cardiopulmonary disease appreciated.
[2018-05-30] MEDS ORDERED: Iohexol 240 (50 ml) ONE (10:31)
[2018-05-30 10:51] LABS: BASO % 0.8 % (0.0-2.0); EOS # 0.1 K/uL (0.0-0.7); EOS % 2.4 % (0.0-4.0); LYMPH # 1.1 K/uL (1.0-4.3); LYMPH % 22.6 % (20.0-40.0); MEAN CORPUSCULAR HEMOGLOBIN 27.8 pg (27.0-31.0); MEAN CORPUSCULAR HGB CONC 32.7 g/dL (33.0-37.0); MEAN PLATELET VOLUME 8.4 fL (7.2-11.7); MONO # 0.3 K/uL (0.0-0.8); NEUT # 3.3 K/uL (1.8-7.0); NEUT % 67.2 % (50.0-75.0); NRBC % 0.2 % (0.0-2.0); RBC 3.95 Mil/uL (4.40-5.90); RED CELL DISTRIBUTION WIDTH 17.4 % (11.5-14.5); WHITE BLOOD COUNT 4.9 K/uL (4.8-10.8)
[2018-05-30 11:12] LABS: URINE BILIRUBIN NEGATIVE (NEGATIVE); URINE BLOOD 1+ (NEGATIVE); URINE CLARITY Clear (Clear); URINE COLOR Yellow (YELLOW); URINE GLUCOSE (UA) NORMAL (Normal); URINE LEUKOCYTE ESTERASE NEG Leu/uL (Negative); URINE PROTEIN NEGATIVE (NEGATIVE); URINE UROBILINOGEN NORMAL mg/dL (0.2-1.0)
[2018-05-30 11:16] LABS: ALB/GLOB RATIO 1.3 (1.0-2.1); ALBUMIN 4.2 g/dL (3.5-5.0); ALT/SGPT 20 U/L (21-72); AST/SGOT 23 U/L (17-59); BLOOD UREA NITROGEN 13 mg/dL (9-20); CALCIUM 9.5 mg/dl (8.6-10.4); GFR NON-AFRICAN AMERICAN > 60; LIPASE 182 U/L (23-300)
[2018-05-30] MEDS ORDERED: Iodixanol 320 MG/ML 100 ML BOTTLE IV ONE (11:39)
--- NOTE | 2018-05-30 13:02 | CT ---
Date of service: 05/30/2018 PROCEDURE: CT Abdomen and Pelvis with contrast HISTORY: LLQ abd pain, vomiting, r/o obstru vs. diverticuli COMPARISON: Abdomen pelvis CT with contrast 07/05/2017. TECHNIQUE: Following oral and intravenous contrast administration, a CT examination of the abdomen and pelvis performed from the domes of the diaphragms to the symphysis pubis with reformatted datasets provided not only axial but also sagittal and coronal series. Coronal and sagittal reformats were generated. contrast dose: Visipaque 320, 100 cc Radiation dose: Total exam DLP = 386.85 mGy-cm. This CT exam was performed using one or more of the following dose reduction techniques: Automated exposure control, adjustment of the mA and/or kV according to patient size, and/or use of iterative reconstruction technique. FINDINGS: LOWER THORAX: Right upper lower lobe limited emphysematous changes reiterated. Bilateral basilar dependent atelectasis reiterated. No pleural or significant pericardial effusion identified. Hiatal hernia noted. LIVER: Unremarkable. No gross lesion or ductal dilatation. GALLBLADDER AND BILE DUCTS: Unremarkable. PANCREAS: Unremarkable. No gross lesion or ductal dilatation. SPLEEN: Unremarkable. ADRENALS: Unremarkable. No mass. KIDNEYS AND URETERS: Bilateral renal cysts are identified including dominant lower pole right renal cyst 3.1 cm and dominant left-sided renal cyst at the upper midpole measuring 3.3 cm. No obstructive uropathy bilaterally. No perinephric reactive change. VASCULATURE: Nonaneurysmal abdominal aortic calcific atherosclerotic changes are identified. BOWEL: Postoperative changes are identified in the left upper quadrant abdomen appear to involve the stomach and colon with unremarkable appearing as symmetric suture lines grossly. Segmental resection of the left hemicolon is felt to be present. There is small bits of gas associated with bowel at the left upper quadrant potentially reflecting decompressed bowel loops with limited residual luminal gas. Is difficult to exclude mural gas and therefore potential bowel ischemia at the left upper quadrant. Clinically correlate further. No suspicious distention of bowel loops is appreciated as previously shown however. Distal large bowel in the left lower quadrant appears adequately opacified and thin walled. No definite colitis pattern is appreciated at that segment. The mid to distal rectum however is quite thick walled with hazy perirectal fat suspicious for proctitis. Clinically correlate further. APPENDIX: Not identified. PERITONEUM: Unremarkable. No free fluid. No free air. LYMPH NODES: Unremarkable. No enlarged lymph nodes. BLADDER: Unremarkable. REPRODUCTIVE: Enlarged partially calcified prostate gland. BONES: No acute fracture. OTHER FINDINGS: None. IMPRESSION: 1. Segmental resection left hemicolon identified in the interval with anastomotic suture lines unremarkable appearing. Mid to distal proctitis suggested. No additional thick-walled colonic bowel identified. 2. Left upper quadrant postop changes may include the stomach. There 2 or 3 small-bowel loops in the left upper quadrant which appear completely collapsed with trace gas in the lumen is difficult to exclude mural gas however with potential for ischemic bowel not excluded. Further clinical correlation is advised as is understood the patient's pain signature is not in this location. No ascites or free air. 3. Stable bilateral renal cysts.
[2018-05-30 15:06] VITALS: BP 156/82; PULSE 82; TEMP 98.3; O2SAT 100
== END 2018-05-30 15:18 | disposition home or self-care (01) ==
LOC: C.ER 08:55
DX: K52.9 Noninfective gastroenteritis and colitis, unspecified (principal); K62.89 Other specified diseases of anus and rectum
CPT/HCPCS: 71045; 74177; 80053; 81001; 83690; 85025; 99285; Q9966; Q9967

== ENCOUNTER 2018-06-03 17:57 | Inpatient (IN) | payer MEDICARE ==
[2018-06-03 17:57] VITALS: BMI 20.5
--- NOTE | 2018-06-03 18:42 | C.PDOC ---
History Of Present Illness 67 y/o male with a PMHx of hernia repair, colectomy, presents to the ED complaining of abdominal pain for the past few days. Associated with episodes of non-bloody non-biliary vomiting. Patient was seen in the ED several days ago for similar complaint and discharge home. Denies any fevers, chills, urinary symptoms, GI bleed, or other associated complaint. Time Seen by Provider: 06/03/18 18:28 Chief Complaint (Nursing): Abdominal Pain History Per: Patient History/Exam Limitations: no limitations Onset/Duration Of Symptoms: Days Current Symptoms Are (Timing): Still Present Associated Symptoms: Nausea, Vomiting Past Medical History Reviewed: Historical Data, Nursing Documentation, Vital Signs Vital Signs: Last Vital Signs Temp 98.1 F 06/03/18 18:19 Pulse 84 06/03/18 18:19 Resp 18 06/03/18 18:19 BP 201/124 H 06/03/18 18:19 Pulse Ox 96 06/03/18 18:19 - Medical History PMH: HTN Denies: Chronic Kidney Disease Surgical History: Endoscopy, Hernia Repair - [facility] Procedures EXCISION OF JEJUNUM, ENDO, DIAGN (01/28/18) EXCISION OF LARGE INTESTINE, ENDO, DIAGN (07/05/17) EXCISION OF SMALL INTESTINE, ENDO, DIAGN (07/05/17) EXCISION OF STOMACH, ENDO, DIAGN (01/28/18) TRANSFUSE NONAUT RED BLOOD CELLS IN PERIPH VEIN, PERC (01/18/18) Family History: States: Unknown Family Hx - Social History Hx Alcohol Use: No (pt denies) Hx Substance Use: No (patient denies) - Immunization History Hx Tetanus Toxoid Vaccination: Yes Hx Influenza Vaccination: Yes Hx Pneumococcal Vaccination: Yes Review Of Systems Except As Marked, All Systems Reviewed And Found Negative. Constitutional: Negative for: Fever, Chills Respiratory: Negative for: Shortness of Breath Gastrointestinal: Positive for: Nausea, Vomiting, Abdominal Pain. Negative for: Diarrhea, Hematochezia, Hematemesis, Other (GI bleed) Genitourinary: Negative for: Dysuria, Frequency, Hematuria Physical Exam - Physical Exam Appears: Non-toxic, No Acute Distress Skin: Normal Color, Warm, Dry Head: Atraumatic, Normacephalic Eye(s): bilateral: Normal Inspection, PERRL, EOMI Oral Mucosa: Moist Neck: Normal ROM Chest: Symmetrical Cardiovascular: Rhythm Regular, No Murmur Respiratory: Normal Breath Sounds, No Accessory Muscle Use Gastrointestinal/Abdominal: Soft, Tenderness (Mild non-focal tenderness), No Distention, No Guarding, Other (Healed abdominal incision) Back: Normal Inspection Extremity: Bilateral: Atraumatic, Normal Color And Temperature Neurological/Psych: Oriented x3, Normal Speech ED Course And Treatment - Laboratory Results Result Diagrams: 06/03/18 19:03 06/03/18 19:03 ECG: Interpreted By Me, Viewed By Me ECG Rhythm: Sinus Rhythm ECG Interpretation: Normal Interpretation Of ECG: No ST/T wave changes Rate From EC O2 Sat by Pulse Oximetry: 96 (RA) Pulse Ox Interpretation: Normal Medical Decision Making Medical Decision Making: abdomianl pain Initial Plan: --CMP --Lipase --CBC --PTT/PT --Urinalysis --Tylenol 975 mg PO --Zofran 4 mg IVP noted drop in h/h, from 4 days ago. in er brown stool guaic pos. hemodynamically stable consented for blood pt states jpatel pmd. accepted by pmd Disposition - Disposition Disposition: HOSPITALIZED Disposition Time: 22:00 Condition: STABLE - Clinical Impression Clinical Impression: Abdominal pain, GI bleed - Scribe Statement The provider has reviewed the documentation as recorded by the Terri Davidson Provider Attestation: All medical record entries made by the Terri were at my direction and personally dictated by me. I have reviewed the chart and agree that the record accurately reflects my personal performance of the history, physical exam, medical decision making, and the department course for this patient. I have also personally directed, reviewed, and agree with the discharge instructions and disposition. Decision To Admit - Pt Status Changed To: Hospital Disposition Of: Inpatient - Admit Certification Admit to Inpatient:: After my assessment, the patient will require hospitalization for at least two midnights. This is because of the severity of symptoms shown, intensity of services needed, and/or the medical risk in this patient being treated as an outpatient. - InPatient: Physician Admission Certification:: gi bleed - . Bed Request Type: Telemetry Admitting Physician: Clarita Whitlock Patient Diagnosis: Abdominal pain, GI bleed
[2018-06-03 19:07] LABS: BASO % 0.7 % (0.0-2.0); EOS # 0.1 K/uL (0.0-0.7); EOS % 1.6 % (0.0-4.0); LYMPH % 21.3 % (20.0-40.0); MEAN CELL VOLUME 84.2 fL (80.0-94.0); MEAN CORPUSCULAR HEMOGLOBIN 27.1 pg (27.0-31.0); MEAN CORPUSCULAR HGB CONC 32.2 g/dL (33.0-37.0); MEAN PLATELET VOLUME 7.9 fL (7.2-11.7); MONO # 0.2 K/uL (0.0-0.8); MONO % 4.7 % (0.0-10.0); NEUT # 3.5 K/uL (1.8-7.0); NEUT % 71.7 % (50.0-75.0); NRBC % 0.1 % (0.0-2.0); RBC 2.57 Mil/uL (4.40-5.90); RED CELL DISTRIBUTION WIDTH 17.6 % (11.5-14.5); WHITE BLOOD COUNT 4.9 K/uL (4.8-10.8)
[2018-06-03 19:10] LABS: URINE BILIRUBIN NEGATIVE (NEGATIVE); URINE BLOOD NEGATIVE (NEGATIVE); URINE CLARITY Clear (Clear); URINE COLOR Straw (YELLOW); URINE GLUCOSE (UA) NORMAL (Normal); URINE LEUKOCYTE ESTERASE NEG Leu/uL (Negative); URINE PROTEIN NEGATIVE (NEGATIVE); URINE UROBILINOGEN NORMAL mg/dL (0.2-1.0)
[2018-06-03 19:20] LABS: ALB/GLOB RATIO 1.2 (1.0-2.1); ALBUMIN 3.4 g/dL (3.5-5.0); ALT/SGPT 24 U/L (21-72); AST/SGOT 25 U/L (17-59); BLOOD UREA NITROGEN 24 mg/dL (9-20); GFR NON-AFRICAN AMERICAN > 60; LIPASE 176 U/L (23-300)
[2018-06-03] MEDS ORDERED: Sodium Chloride 0.9% 1,000 ML IV ONE (19:25)
[2018-06-03 19:29] LABS: INR 1.1; PROTHROMBIN TIME 11.8 SECONDS (9.7-12.2)
[2018-06-03] MEDS ORDERED: Iohexol 300 100 ML IJ ONE (19:35)
--- NOTE | 2018-06-03 23:45 | CP.PCM.HP ---
Past Patient History - Infectious Disease Hx of Infectious Diseases: None - Tetanus Immunizations Tetanus Immunization: Unknown - Past Medical History & Family History Past Medical History?: Yes - Past Social History Smoking Status: Light Smoker < 10 Cigarettes Daily - CARDIAC Hx Hypertension: Yes - PULMONARY Hx Respiratory Disorders: No - NEUROLOGICAL Hx Neurological Disorder: No - HEENT Hx HEENT Problems: No - RENAL Hx Chronic Kidney Disease: No - ENDOCRINE/METABOLIC Hx Endocrine Disorders: No Hx Diabetes Mellitus Type 2: Yes - HEMATOLOGICAL/ONCOLOGICAL Hx Blood Disorders: No - INTEGUMENTARY Other/Comment: thick hard toenails, dry leathery discolored skin ble, 1cm round dry scab to left knee, foul smelling body odor, healed surgical scar abd - MUSCULOSKELETAL/RHEUMATOLOGICAL Hx Musculoskeletal Disorders: Yes Hx Unsteady Gait: Yes - GASTROINTESTINAL Hx Gastrointestinal Disorders: Yes (colitis) - GENITOURINARY/GYNECOLOGICAL Hx Genitourinary Disorders: No - PSYCHIATRIC Hx Substance Use: No (patient denies) - SURGICAL HISTORY Hx Surgeries: Yes (abdominal surgery) Hx Herniorrhaphy: Yes Other/Comment: "I've had surgery on my kidneys and colon. I don't know why." - ANESTHESIA Hx Anesthesia: Yes Hx Anesthesia Reactions: No Hx Malignant Hyperthermia: No Meds Allergies/Adverse Reactions: Allergies Allergy/AdvReac Type Severity Reaction Status Date / Time No Known Allergies Allergy Verified 06/03/18 18:30 Results - Vital Signs Recent Vital Signs: Last Vital Signs Temp 98 F 06/03/18 22:28 Pulse 85 06/03/18 22:28 Resp 20 06/03/18 22:28 BP 143/79 06/03/18 22:24 Pulse Ox 96 06/03/18 22:52 - Labs Result Diagrams: 06/03/18 19:03 06/03/18 19:03 Labs: Laboratory Results - last 24 hr 06/03/18 06/03/18 06/03/18 19:03 19:03 19:03 WBC 4.9 RBC 2.57 L Hgb 7.0 L D Hct 21.6 L MCV 84.2 MCH 27.1 MCHC 32.2 L RDW 17.6 H Plt Count 318 MPV 7.9 Neut % (Auto) 71.7 Lymph % (Auto) 21.3 [place] % (Auto) 4.7 Eos % (Auto) 1.6 Baso % (Auto) 0.7 Neut # (Auto) 3.5 Lymph # (Auto) 1.0 [place] # (Auto) 0.2 Eos # (Auto) 0.1 Baso # (Auto) 0.0 PT 11.8 INR 1.1 APTT 37 H Sodium Potassium Chloride Carbon Dioxide Anion Gap BUN Creatinine Est GFR ( Amer) Est GFR (Non-Af Amer) Random Glucose Calcium Total Bilirubin AST ALT Alkaline Phosphatase Total Protein Albumin Globulin Albumin/Globulin Ratio Lipase Urine Color Straw Urine Clarity Clear Urine pH 6.0 Ur Specific [place] 1.015 Urine Protein Negative Urine Glucose (UA) Normal Urine Ketones Negative Urine Blood Negative Urine Nitrate Negative Urine Bilirubin Negative Urine Urobilinogen Normal Ur Leukocyte Esterase Neg Urine WBC (Auto) 2 Urine RBC (Auto) < 1 Stool Occult Blood Blood Type Antibody Screen 06/03/18 06/03/18 06/03/18 19:03 19:37 19:44 WBC RBC Hgb Hct MCV MCH MCHC RDW Plt Count MPV Neut % (Auto) Lymph % (Auto) [place] % (Auto) Eos % (Auto) Baso % (Auto) Neut # (Auto) Lymph # (Auto) [place] # (Auto) Eos # (Auto) Baso # (Auto) PT INR APTT Sodium 139 Potassium 4.6 Chloride 107 Carbon Dioxide 24 Anion Gap 13 BUN 24 H Creatinine 0.9 Est GFR ( Amer) > 60 Est GFR (Non-Af Amer) > 60 Random Glucose 97 Calcium 9.0 Total Bilirubin 0.2 AST 25 ALT 24 Alkaline Phosphatase 63 Total Protein 6.3 Albumin 3.4 L Globulin 2.8 Albumin/Globulin Ratio 1.2 Lipase 176 Urine Color Urine Clarity Urine pH Ur Specific [place] Urine Protein Urine Glucose (UA) Urine Ketones Urine Blood Urine Nitrate Urine Bilirubin Urine Urobilinogen Ur Leukocyte Esterase Urine WBC (Auto) Urine RBC (Auto) Stool Occult Blood Positive H Blood Type O POSITIVE Antibody Screen Negative
[2018-06-04 06:50] LABS: EOS # 0.1 K/uL (0.0-0.7); EOS % 1.7 % (0.0-4.0); HEMOGLOBIN 8.9 g/dL (12.0-18.0); MEAN CELL VOLUME 83.5 fL (80.0-94.0); MEAN CORPUSCULAR HEMOGLOBIN 27.9 pg (27.0-31.0); MEAN CORPUSCULAR HGB CONC 33.4 g/dL (33.0-37.0); MEAN PLATELET VOLUME 8.1 fL (7.2-11.7); MONO # 0.4 K/uL (0.0-0.8); NEUT # 3.5 K/uL (1.8-7.0); NEUT % 69.3 % (50.0-75.0); NRBC % 0.1 % (0.0-2.0); RBC 3.18 Mil/uL (4.40-5.90); RED CELL DISTRIBUTION WIDTH 16.2 % (11.5-14.5)
[2018-06-04 07:00] LABS: ALB/GLOB RATIO 1.3 (1.0-2.1); ALBUMIN 3.5 g/dL (3.5-5.0); ALT/SGPT 25 U/L (21-72); AST/SGOT 22 U/L (17-59); BLOOD UREA NITROGEN 15 mg/dL (9-20); CALCIUM 8.8 mg/dl (8.6-10.4); GFR NON-AFRICAN AMERICAN > 60
--- NOTE | 2018-06-04 08:04 | CT ---
Date of service: 06/03/2018 PROCEDURE: CT Abdomen and Pelvis with contrast HISTORY: abd pain, anemia COMPARISON: Comparison is made to the previous study dated 05/30/2018 TECHNIQUE: Contrast dose: 100 mL of Omnipaque 300 intravenously. Axial and reformatted coronal and sagittal CT images of the abdomen and pelvis were obtained after IV contrast administration. Radiation dose: Total exam DLP = 220.74 mGy-cm. This CT exam was performed using one or more of the following dose reduction techniques: Automated exposure control, adjustment of the mA and/or kV according to patient size, and/or use of iterative reconstruction technique. FINDINGS: LOWER THORAX: No evidence of of acute pathology at the lung bases. LIVER: The liver is heterogeneous mildly enlarged without evidence of discrete mass. The portal vein is patent. GALLBLADDER AND BILE DUCTS: No evidence of acute cholecystitis or radiodense gallstones. PANCREAS: Unremarkable. No gross lesion or ductal dilatation. SPLEEN: Unremarkable. ADRENALS: Unremarkable. No mass. KIDNEYS AND URETERS: Again noted are bilateral low-attenuation cystic lesion in the kidneys. No hydronephrosis. No solid mass. VASCULATURE: Unremarkable. No aortic aneurysm. No aortic atherosclerotic calcification or mural plaque present. BOWEL: Again noted are postsurgical changes in the left mid and upper abdomen. No obstruction. No gross mural thickening. Distal large bowel wall thickening is again noted. No definite evidence of colitis APPENDIX: . no evidence of appendicitis. PERITONEUM: Unremarkable. No free fluid. No free air. LYMPH NODES: Unremarkable. No enlarged lymph nodes. BLADDER: Urinary bladder wall thickening is again noted. REPRODUCTIVE: Prostate is mildly enlarged. BONES: No acute fracture. OTHER FINDINGS: None. IMPRESSION: No significant interval changes noted since the previous exam. Postsurgical changes are again noted. Mild distal large bowel wall thickening is again noted. Preliminary report contains concordant findings was submitted by [facility].
--- NOTE | 2018-06-04 08:14 | CP.PCM.CON ---
<Arnulfo Gurrola - Last Filed: 06/04/18 11:16> History of Present Illness - History of Present Illness History of Present Illness: GI Fellow PGY4, consult note. Consulted for anemia, GI bleed. Mario Lisa is a 67M homeless, hx of gastro-colic fistula, severe obstrucitng PUD with gastric/duodenal ulcers noted in 06/2017 s/p possible gastrojejunostomy, HTN, DM, homelessness presenting for non-bloody vomiting. He said he had been having "clear" emesis yesterday due to abdominal pain. He also notice his stool was darker. This abdominal pain started several days ago, was severe and he was treating it with Advil. The pain has improved since being in the hospital. He does not know which medications he is taking at this time including any acid suppression medications. He says he lives alone, no one helps him with his medications. Four days earlier he had Hb of 11. Today, upon work-up in ED, he was HDS and found to have anemia with Hb 7.0 on repeat the next day after 2u pRBC it was 8.9. . CT abdomen showed postsurgical changes and chronic thickened distal colon. Last EGD was at [facility] 02/10 which found several ulcers. Last CSPY 07/12. PMHx: As above PSHx: Gastrojejunostomy FHx: Noncontributory Social: Denies tobacco, EtOH or illicit drug use 12pt ROS completed and negative except for above Past Patient History - Infectious Disease Hx of Infectious Diseases: None - Tetanus Immunizations Tetanus Immunization: Unknown - Past Medical History & Family History Past Medical History?: Yes - Past Social History Smoking Status: Light Smoker < 10 Cigarettes Daily - CARDIAC Hx Cardiac Disorders: Yes Hx Hypertension: Yes - PULMONARY Hx Respiratory Disorders: No - NEUROLOGICAL Hx Neurological Disorder: No - HEENT Hx HEENT Problems: No - RENAL Hx Chronic Kidney Disease: No - ENDOCRINE/METABOLIC Hx Endocrine Disorders: Yes Hx Diabetes Mellitus Type 2: Yes - HEMATOLOGICAL/ONCOLOGICAL Hx Blood Disorders: No - INTEGUMENTARY Hx Dermatological Problems: No Other/Comment: thick hard toenails, dry leathery discolored skin ble, 1cm round dry scab to left knee, foul smelling body odor, healed surgical scar abd - MUSCULOSKELETAL/RHEUMATOLOGICAL Hx Musculoskeletal Disorders: Yes Hx Unsteady Gait: Yes - GASTROINTESTINAL Hx Gastrointestinal Disorders: Yes (colitis) - GENITOURINARY/GYNECOLOGICAL Hx Genitourinary Disorders: No - PSYCHIATRIC Hx Psychophysiologic Disorder: No Hx Substance Use: No (patient denies) - SURGICAL HISTORY Hx Surgeries: Yes (abdominal surgery) Hx Herniorrhaphy: Yes Other/Comment: "I've had surgery on my kidneys and colon. I don't know why." - ANESTHESIA Hx Anesthesia: Yes Hx Anesthesia Reactions: No Hx Malignant Hyperthermia: No Meds Allergies/Adverse Reactions: Allergies Allergy/AdvReac Type Severity Reaction Status Date / Time No Known Allergies Allergy Verified 06/03/18 18:30 - Medications Medications: Current Medications Pantoprazole Sodium (Protonix Inj) 40 mg IVP DAILY SHIMA Physical Exam - Constitutional Appears: Non-toxic, No Acute Distress - Head Exam Head Exam: NORMAL INSPECTION, NORMOCEPHALIC - Eye Exam Eye Exam: EOMI, Normal appearance - ENT Exam ENT Exam: Mucous Membranes Moist, Normal Exam - Respiratory Exam Respiratory Exam: Clear to Auscultation Bilateral, NORMAL BREATHING PATTERN - Cardiovascular Exam Cardiovascular Exam: REGULAR RHYTHM, +S1, +S2 - GI/Abdominal Exam GI & Abdominal Exam: Normal Bowel Sounds, Soft, Tenderness. absent: Organomegaly Additional comments: Well healed surgical scars. No acute abdomen. - Rectal Exam Additional comments: No stool in rectal vault, difficult to assess if melena present or absent. - Extremities Exam Extremities exam: Positive for: full ROM, normal inspection - Neurological Exam Neurological exam: Alert, CN II-XII Intact, Oriented x3 - Psychiatric Exam Psychiatric exam: Normal Affect, Normal Mood - Skin Skin Exam: Dry, Normal Color Results - Vital Signs Recent Vital Signs: Last Vital Signs Temp 98.2 F 06/04/18 05:51 Pulse 76 06/04/18 05:51 Resp 20 06/04/18 05:51 BP 190/84 H 06/04/18 05:51 Pulse Ox 97 06/04/18 00:55 - Labs Result Diagrams: 06/04/18 09:47 06/04/18 06:34 Labs: Laboratory Results - last 24 hr 06/03/18 06/03/18 06/03/18 19:03 19:03 19:03 WBC 4.9 RBC 2.57 L Hgb 7.0 L D Hct 21.6 L MCV 84.2 MCH 27.1 MCHC 32.2 L RDW 17.6 H Plt Count 318 MPV 7.9 Neut % (Auto) 71.7 Lymph % (Auto) 21.3 [place] % (Auto) 4.7 Eos % (Auto) 1.6 Baso % (Auto) 0.7 Neut # (Auto) 3.5 Lymph # (Auto) 1.0 [place] # (Auto) 0.2 Eos # (Auto) 0.1 Baso # (Auto) 0.0 PT 11.8 INR 1.1 APTT 37 H Sodium Potassium Chloride Carbon Dioxide Anion Gap BUN Creatinine Est GFR ( Amer) Est GFR (Non-Af Amer) Random Glucose Calcium Total Bilirubin AST ALT Alkaline Phosphatase Total Protein Albumin Globulin Albumin/Globulin Ratio Lipase Urine Color Straw Urine Clarity Clear Urine pH 6.0 Ur Specific [place] 1.015 Urine Protein Negative Urine Glucose (UA) Normal Urine Ketones Negative Urine Blood Negative Urine Nitrate Negative Urine Bilirubin Negative Urine Urobilinogen Normal Ur Leukocyte Esterase Neg Urine WBC (Auto) 2 Urine RBC (Auto) < 1 Stool Occult Blood Blood Type Antibody Screen 06/03/18 06/03/18 06/03/18 19:03 19:37 19:44 WBC RBC Hgb Hct MCV MCH MCHC RDW Plt Count MPV Neut % (Auto) Lymph % (Auto) [place] % (Auto) Eos % (Auto) Baso % (Auto) Neut # (Auto) Lymph # (Auto) [place] # (Auto) Eos # (Auto) Baso # (Auto) PT INR APTT Sodium 139 Potassium 4.6 Chloride 107 Carbon Dioxide 24 Anion Gap 13 BUN 24 H Creatinine 0.9 Est GFR ( Amer) > 60 Est GFR (Non-Af Amer) > 60 Random Glucose 97 Calcium 9.0 Total Bilirubin 0.2 AST 25 ALT 24 Alkaline Phosphatase 63 Total Protein 6.3 Albumin 3.4 L Globulin 2.8 Albumin/Globulin Ratio 1.2 Lipase 176 Urine Color Urine Clarity Urine pH Ur Specific [place] Urine Protein Urine Glucose (UA) Urine Ketones Urine Blood Urine Nitrate Urine Bilirubin Urine Urobilinogen Ur Leukocyte Esterase Urine WBC (Auto) Urine RBC (Auto) Stool Occult Blood Positive H Blood Type O POSITIVE Antibody Screen Negative 06/04/18 06/04/18 06:34 06:34 WBC 5.0 RBC 3.18 L Hgb 8.9 L Hct 26.6 L MCV 83.5 MCH 27.9 MCHC 33.4 RDW 16.2 H Plt Count 321 MPV 8.1 Neut % (Auto) 69.3 Lymph % (Auto) 21.0 [place] % (Auto) 7.0 Eos % (Auto) 1.7 Baso % (Auto) 1.0 Neut # (Auto) 3.5 Lymph # (Auto) 1.0 [place] # (Auto) 0.4 Eos # (Auto) 0.1 Baso # (Auto) 0.0 PT INR APTT Sodium 139 Potassium 4.0 Chloride 106 Carbon Dioxide 25 Anion Gap 12 BUN 15 Creatinine 0.9 Est GFR ( Amer) > 60 Est GFR (Non-Af Amer) > 60 Random Glucose 90 Calcium 8.8 Total Bilirubin 0.6 AST 22 ALT 25 Alkaline Phosphatase 74 Total Protein 6.2 L Albumin 3.5 Globulin 2.7 Albumin/Globulin Ratio 1.3 Lipase Urine Color Urine Clarity Urine pH Ur Specific [place] Urine Protein Urine Glucose (UA) Urine Ketones Urine Blood Urine Nitrate Urine Bilirubin Urine Urobilinogen Ur Leukocyte Esterase Urine WBC (Auto) Urine RBC (Auto) Stool Occult Blood Blood Type Antibody Screen Assessment & Plan - Assessment and Plan (Free Text) Assessment: #Acute anemia, possible blood loss due to GI bleed. #Severe Peptic ulcer disease s/p gastrojejunostomy #Homeless, poor medical adherence #HTN/DM PLAN: -Previous reports, labs and imaging reviewed -No stool in rectal vault, unable to state +/- melena. Asked patient to not flush stool until nurse observes. -s/p 2u pRBC with appropriate response: Hb 7.0 to 8.9 -Continue to monitor Hb, symptoms closely. -Transfuse blood for Hb less than 7 or unstable -Continue PPI BID IV -Avoid NSAIDs, anticoagulation, antiplt. -Start CLD -No need for EGD at this time as there does not appear to be any active bleeding at this time and patient has well documented PUD. Patient should be medically optimized and possible EGD Thursday if not improving. - Date & Time Date: 06/04/18 Time: 09:15 <Efren Astorga - Last Filed: 06/04/18 11:48> Meds - Medications Medications: Current Medications Amlodipine Besylate (Norvasc) 10 mg PO DAILY SHIMA Last Admin: 06/04/18 11:20 Dose: 10 mg Hydralazine HCl (Apresoline) 25 mg PO TID [facility] Morphine Sulfate (Morphine) 1 mg IVP Q6H PRN PRN Reason: Pain, severe (8-10) Last Admin: 06/04/18 11:18 Dose: 1 mg Pantoprazole Sodium (Protonix Inj) 40 mg IVP BID [facility] Last Admin: 06/04/18 11:15 Dose: 40 mg Tamsulosin HCl (Flomax) 0.4 mg PO DAILY [facility] Last Admin: 06/04/18 11:20 Dose: 0.4 mg Results - Vital Signs Recent Vital Signs: Last Vital Signs Temp 98.3 F 06/04/18 07:10 Pulse 78 06/04/18 11:28 Resp 20 06/04/18 07:10 BP 190/101 H 06/04/18 11:28 Pulse Ox 100 06/04/18 07:10 - Labs Result Diagrams: 06/04/18 09:47 06/04/18 06:34 Labs: Laboratory Results - last 24 hr 06/03/18 06/03/18 06/03/18 19:03 19:03 19:03 WBC 4.9 RBC 2.57 L Hgb 7.0 L D Hct 21.6 L MCV 84.2 MCH 27.1 MCHC 32.2 L RDW 17.6 H Plt Count 318 MPV 7.9 Neut % (Auto) 71.7 Lymph % (Auto) 21.3 [place] % (Auto) 4.7 Eos % (Auto) 1.6 Baso % (Auto) 0.7 Neut # (Auto) 3.5 Lymph # (Auto) 1.0 [place] # (Auto) 0.2 Eos # (Auto) 0.1 Baso # (Auto) 0.0 PT 11.8 INR 1.1 APTT 37 H Sodium Potassium Chloride Carbon Dioxide Anion Gap BUN Creatinine Est GFR ( Amer) Est GFR (Non-Af Amer) Random Glucose Calcium Total Bilirubin AST ALT Alkaline Phosphatase Total Protein Albumin Globulin Albumin/Globulin Ratio Lipase Urine Color Straw Urine Clarity Clear Urine pH 6.0 Ur Specific [place] 1.015 Urine Protein Negative Urine Glucose (UA) Normal Urine Ketones Negative Urine Blood Negative Urine Nitrate Negative Urine Bilirubin Negative Urine Urobilinogen Normal Ur Leukocyte Esterase Neg Urine WBC (Auto) 2 Urine RBC (Auto) < 1 Stool Occult Blood Blood Type Antibody Screen 06/03/18 06/03/18 06/03/18 19:03 19:37 19:44 WBC RBC Hgb Hct MCV MCH MCHC RDW Plt Count MPV Neut % (Auto) Lymph % (Auto) [place] % (Auto) Eos % (Auto) Baso % (Auto) Neut # (Auto) Lymph # (Auto) [place] # (Auto) Eos # (Auto) Baso # (Auto) PT INR APTT Sodium 139 Potassium 4.6 Chloride 107 Carbon Dioxide 24 Anion Gap 13 BUN 24 H Creatinine 0.9 Est GFR ( Amer) > 60 Est GFR (Non-Af Amer) > 60 Random Glucose 97 Calcium 9.0 Total Bilirubin 0.2 AST 25 ALT 24 Alkaline Phosphatase 63 Total Protein 6.3 Albumin 3.4 L Globulin 2.8 Albumin/Globulin Ratio 1.2 Lipase 176 Urine Color Urine Clarity Urine pH Ur Specific [place] Urine Protein Urine Glucose (UA) Urine Ketones Urine Blood Urine Nitrate Urine Bilirubin Urine Urobilinogen Ur Leukocyte Esterase Urine WBC (Auto) Urine RBC (Auto) Stool Occult Blood Positive H Blood Type O POSITIVE Antibody Screen Negative 06/04/18 06/04/18 06/04/18 06:34 06:34 09:47 WBC 5.0 6.4 RBC 3.18 L 3.40 L Hgb 8.9 L 9.5 L Hct 26.6 L 28.5 L MCV 83.5 83.8 MCH 27.9 27.8 MCHC 33.4 33.2 RDW 16.2 H 16.6 H Plt Count 321 346 MPV 8.1 8.2 Neut % (Auto) 69.3 75.8 H Lymph % (Auto) 21.0 16.9 L [place] % (Auto) 7.0 4.1 Eos % (Auto) 1.7 2.1 Baso % (Auto) 1.0 1.1 Neut # (Auto) 3.5 4.9 Lymph # (Auto) 1.0 1.1 [place] # (Auto) 0.4 0.3 Eos # (Auto) 0.1 0.1 Baso # (Auto) 0.0 0.1 PT INR APTT Sodium 139 Potassium 4.0 Chloride 106 Carbon Dioxide 25 Anion Gap 12 BUN 15 Creatinine 0.9 Est GFR ( Amer) > 60 Est GFR (Non-Af Amer) > 60 Random Glucose 90 Calcium 8.8 Total Bilirubin 0.6 AST 22 ALT 25 Alkaline Phosphatase 74 Total Protein 6.2 L Albumin 3.5 Globulin 2.7 Albumin/Globulin Ratio 1.3 Lipase Urine Color Urine Clarity Urine pH Ur Specific [place] Urine Protein Urine Glucose (UA) Urine Ketones Urine Blood Urine Nitrate Urine Bilirubin Urine Urobilinogen Ur Leukocyte Esterase Urine WBC (Auto) Urine RBC (Auto) Stool Occult Blood Blood Type Antibody Screen Attending/Attestation - Attestation I have personally seen and examined this patient.: Yes I have fully participated in the care of the patient.: Yes I have reviewed all pertinent clinical information: Yes Notes (Text): 06/04/18 11:41 I have seen and examined patient with GI fellow. Agree with above documentation with the following additions. In brief, this is a 67 year old male with history of PUD s/p ?billroth, HTN, DM, partial colectomy (unclear etiology) who presents to hospital with complaint of abdominal pain and vomiting. He describes a sharp 8/10 intensity epigastric pain radiating to LUQ for the past 3 days that has been associated with non-bloody emesis. He also notes presence of dark colored stool since yesterday. He admits to recent NSAID use for pain relief. He was admitted to [facility] in January 2018 with similar complaints and found to have anastomotic ulceration. He otherwise denies rectal bleeding, weight loss, fever/chills. He has not been compliant with medication or physician follow up after being discharged from prior hospitalization. Review of vitals from today shows elevated BP. DM / HTN PUD s/p ?billroth and partial colectomy Abdominal pain Anemia - Clear liquid diet as tolerated - H/H stable, continue to monitor - Continue with PPI therapy - Patient currently hemodynamically stable without presence of overt bleeding noted - Will continue to monitor patient clinical course
[2018-06-04 09:52] LABS: BASO # 0.1 K/uL (0.0-0.2); BASO % 1.1 % (0.0-2.0); EOS # 0.1 K/uL (0.0-0.7); EOS % 2.1 % (0.0-4.0); HEMOGLOBIN 9.5 g/dL (12.0-18.0); LYMPH # 1.1 K/uL (1.0-4.3); LYMPH % 16.9 % (20.0-40.0); MEAN CELL VOLUME 83.8 fL (80.0-94.0); MEAN CORPUSCULAR HEMOGLOBIN 27.8 pg (27.0-31.0); MEAN CORPUSCULAR HGB CONC 33.2 g/dL (33.0-37.0); MEAN PLATELET VOLUME 8.2 fL (7.2-11.7); MONO # 0.3 K/uL (0.0-0.8); MONO % 4.1 % (0.0-10.0); NEUT # 4.9 K/uL (1.8-7.0); NEUT % 75.8 % (50.0-75.0); RBC 3.4 Mil/uL (4.40-5.90); RED CELL DISTRIBUTION WIDTH 16.6 % (11.5-14.5); WHITE BLOOD COUNT 6.4 K/uL (4.8-10.8)
--- NOTE | 2018-06-04 18:50 | CP.PCM.PN ---
Subjective - Date & Time of Evaluation Date of Evaluation: 06/04/18 Time of Evaluation: 11:00 - Subjective Subjective: clinically same Objective - Vital Signs/Intake and Output Vital Signs (last 24 hours): Temp Pulse Resp BP Pulse Ox 98.3 F 92 H 20 157/79 H 100 06/04/18 07:10 06/04/18 16:54 06/04/18 07:10 06/04/18 13:13 06/04/18 07:10 Intake and Output: 06/04/18 06/04/18 06:59 18:59 Intake Total 725 Output Total 1100 450 Balance -375 -450 - Medications Medications: Current Medications Amlodipine Besylate (Norvasc) 10 mg PO DAILY [facility] Last Admin: 06/04/18 11:20 Dose: 10 mg Hydralazine HCl (Apresoline) 25 mg PO TID [facility] Last Admin: 06/04/18 17:48 Dose: 25 mg Morphine Sulfate (Morphine) 1 mg IVP Q6H PRN PRN Reason: Pain, severe (8-10) Last Admin: 06/04/18 11:18 Dose: 1 mg Pantoprazole Sodium (Protonix Inj) 40 mg IVP BID [facility] Last Admin: 06/04/18 17:48 Dose: 40 mg Tamsulosin HCl (Flomax) 0.4 mg PO DAILY [facility] Last Admin: 06/04/18 11:20 Dose: 0.4 mg - Labs Labs: 06/04/18 09:47 06/04/18 06:34 PT 11.8 SECONDS (9.7-12.2) 06/03/18 19:03 INR 1.1 06/03/18 19:03 APTT 37 SECONDS (21-34) H 06/03/18 19:03 - Constitutional Appears: Well - Head Exam Head Exam: ATRAUMATIC, NORMAL INSPECTION, NORMOCEPHALIC - Eye Exam Eye Exam: EOMI, Normal appearance, PERRL Pupil Exam: NORMAL ACCOMODATION, PERRL - ENT Exam ENT Exam: Mucous Membranes Moist, Normal Exam - Neck Exam Neck Exam: Full ROM, Normal Inspection. absent: Lymphadenopathy - Respiratory Exam Respiratory Exam: Decreased Breath Sounds - Cardiovascular Exam Cardiovascular Exam: REGULAR RHYTHM, +S1, +S2 - GI/Abdominal Exam GI & Abdominal Exam: Soft, Diminished Bowel Sounds - Rectal Exam Rectal Exam: Deferred
--- NOTE | 2018-06-04 23:36 | CARD ---
APPROVED REPORT Date of service: 06/03/2018 EKG Measurement Heart [id number] <Conclusion> Normal sinus rhythm Voltage criteria for left ventricular hypertrophy Cannot rule out Septal infarct, age undetermined Abnormal ECG
[2018-06-05 07:56] LABS: HEMOGLOBIN 9.2 g/dL (12.0-18.0); MEAN CELL VOLUME 83.6 fL (80.0-94.0); MEAN CORPUSCULAR HEMOGLOBIN 28.2 pg (27.0-31.0); MEAN CORPUSCULAR HGB CONC 33.7 g/dL (33.0-37.0); MEAN PLATELET VOLUME 8.6 fL (7.2-11.7); RBC 3.26 Mil/uL (4.40-5.90); RED CELL DISTRIBUTION WIDTH 16.3 % (11.5-14.5); WHITE BLOOD COUNT 3.8 K/uL (4.8-10.8)
--- NOTE | 2018-06-05 12:04 | CP.PCM.PN ---
<YaranielsJean Marie - Last Filed: 06/05/18 16:06> Subjective - Date & Time of Evaluation Date of Evaluation: 06/05/18 Time of Evaluation: 12:01 - Subjective Subjective: PGY6 GI Fellow Progress Note Patient seen and examined bedside this morning. The patient states that he continues to have left sided abdominal pain. Notes that he did not take any medications to treat his known ulcer disease following discharge from [facility] in January. No events overnight. 12 system ROS performed and negative except where stated Objective - Vital Signs/Intake and Output Vital Signs (last 24 hours): Temp Pulse Resp BP Pulse Ox 98.4 F 62 20 109/67 100 06/05/18 07:00 06/05/18 07:08 06/05/18 07:00 06/05/18 09:41 06/05/18 07:00 Intake and Output: 06/05/18 06/05/18 06:59 18:59 Output Total 550 Balance -550 - Medications Medications: Current Medications Amlodipine Besylate (Norvasc) 10 mg PO DAILY [facility] Last Admin: 06/05/18 09:40 Dose: 10 mg Hydralazine HCl (Apresoline) 25 mg PO TID [facility] Last Admin: 06/05/18 09:41 Dose: Not Given Morphine Sulfate (Morphine) 1 mg IVP Q6H PRN PRN Reason: Pain, severe (8-10) Last Admin: 06/05/18 05:52 Dose: 1 mg Pantoprazole Sodium (Protonix Inj) 40 mg IVP BID [facility] Last Admin: 06/05/18 09:38 Dose: 40 mg Tamsulosin HCl (Flomax) 0.4 mg PO DAILY [facility] Last Admin: 06/05/18 09:38 Dose: 0.4 mg - Labs Labs: 06/05/18 07:42 06/04/18 06:34 PT 11.8 SECONDS (9.7-12.2) 06/03/18 19:03 INR 1.1 06/03/18 19:03 APTT 37 SECONDS (21-34) H 06/03/18 19:03 - Constitutional Appears: Non-toxic, No Acute Distress - Eye Exam Eye Exam: EOMI, PERRL - ENT Exam ENT Exam: Mucous Membranes Moist - Respiratory Exam Respiratory Exam: Clear to Ausculation Bilateral. absent: Rales, Rhonchi, Wheezes - Cardiovascular Exam Cardiovascular Exam: RRR, +S1, +S2 - GI/Abdominal Exam GI & Abdominal Exam: Soft, Normal Bowel Sounds. absent: Distended, Firm, Guarding, Rigid, Tenderness, Organomegaly - Extremities Exam Extremities Exam: Normal Inspection. absent: Pedal Edema - Neurological Exam Neurological Exam: Alert, Awake, Oriented x3 - Psychiatric Exam Psychiatric exam: Normal Affect, Normal Mood - Skin Skin Exam: Dry, Warm Assessment and Plan - Assessment and Plan (Free Text) Assessment: Patient is a 67yo male, poor historian, with PMHx significant for PUD s/p ?billroth, HTN, DM, partial colectomy (unclear etiology) who presented to [facility] with complaint of abdominal pain and vomiting -Peptic ulcer disease - untreated since January -Anemia -H/O gastrojejunostomy -DM -HTN Plan: -S/P 1 unit PRBC with HGB remaining stable at this juncture -No overt blood loss noted -Known PUD with gastrojejunal anastamotic ulceration noted on prior EGD - no adequate tx since January -Continue PPI, can be switched to 40mg PO BID -Monitor CBC -Consider repeat endoscopy on Thursday to evaluate -No evidence for perforation on examination or imaging -Maintain liquid diet <Anup Tavarez - Last Filed: 06/05/18 16:07> Objective - Vital Signs/Intake and Output Vital Signs (last 24 hours): Temp Pulse Resp BP Pulse Ox 98.4 F 77 20 118/69 100 06/05/18 07:00 06/05/18 13:46 06/05/18 07:00 06/05/18 13:46 06/05/18 07:00 Intake and Output: 06/05/18 06/05/18 06:59 18:59 Output Total 550 Balance -550 - Medications Medications: Current Medications Amlodipine Besylate (Norvasc) 10 mg PO DAILY [facility] Last Admin: 06/05/18 09:40 Dose: 10 mg Morphine Sulfate (Morphine) 1 mg IVP Q6H PRN PRN Reason: Pain, severe (8-10) Last Admin: 06/05/18 12:46 Dose: 1 mg Pantoprazole Sodium (Protonix Inj) 40 mg IVP BID [facility] Last Admin: 06/05/18 09:38 Dose: 40 mg Tamsulosin HCl (Flomax) 0.4 mg PO DAILY [facility] Last Admin: 06/05/18 09:38 Dose: 0.4 mg - Labs Labs: 06/05/18 07:42 06/04/18 06:34 PT 11.8 SECONDS (9.7-12.2) 06/03/18 19:03 INR 1.1 06/03/18 19:03 APTT 37 SECONDS (21-34) H 06/03/18 19:03 Attending/Attestation - Attestation I have personally seen and examined this patient.: Yes I have fully participated in the care of the patient.: Yes I have reviewed all pertinent clinical information, including history, physical exam and plan: Yes Notes (Text): 06/05/18 16:07 The pt was interviewed and examined. Discussed with Dr. Chairez. Agree with Dr. Chairez's findings, assessment and plan as outlined above. Also discussed with pt's nurse.
--- NOTE | 2018-06-05 19:50 | CP.PCM.PN ---
Subjective - Date & Time of Evaluation Date of Evaluation: 06/05/18 Time of Evaluation: 10:15 - Subjective Subjective: clinically same Objective - Vital Signs/Intake and Output Vital Signs (last 24 hours): Temp Pulse Resp BP Pulse Ox 98.4 F 73 18 102/64 100 06/05/18 15:25 06/05/18 15:25 06/05/18 15:25 06/05/18 15:25 06/05/18 15:25 Intake and Output: 06/05/18 06/06/18 18:59 06:59 Output Total 850 Balance -850 - Medications Medications: Current Medications Amlodipine Besylate (Norvasc) 10 mg PO DAILY [facility] Last Admin: 06/05/18 09:40 Dose: 10 mg Morphine Sulfate (Morphine) 1 mg IVP Q6H PRN PRN Reason: Pain, severe (8-10) Last Admin: 06/05/18 12:46 Dose: 1 mg Pantoprazole Sodium (Protonix Ec Tab) 40 mg PO BIDAC [facility] Tamsulosin HCl (Flomax) 0.4 mg PO DAILY [facility] Last Admin: 06/05/18 09:38 Dose: 0.4 mg - Labs Labs: 06/05/18 07:42 06/04/18 06:34 PT 11.8 SECONDS (9.7-12.2) 06/03/18 19:03 INR 1.1 06/03/18 19:03 APTT 37 SECONDS (21-34) H 06/03/18 19:03 - Constitutional Appears: Well - Head Exam Head Exam: ATRAUMATIC, NORMAL INSPECTION, NORMOCEPHALIC - Eye Exam Eye Exam: EOMI, Normal appearance, PERRL Pupil Exam: NORMAL ACCOMODATION, PERRL - ENT Exam ENT Exam: Mucous Membranes Moist, Normal Exam - Neck Exam Neck Exam: Full ROM, Normal Inspection. absent: Lymphadenopathy - Respiratory Exam Respiratory Exam: Decreased Breath Sounds - Cardiovascular Exam Cardiovascular Exam: REGULAR RHYTHM, +S1, +S2 - GI/Abdominal Exam GI & Abdominal Exam: Soft, Diminished Bowel Sounds - Rectal Exam Rectal Exam: Deferred
[2018-06-05] MEDS ORDERED: Dextrose 50% SYRINGE Inj (50 ml) IV PRN (21:33)
[2018-06-05] MEDS ORDERED: Glucagon Recombinant 1 mg Inj IM PRN (21:33)
[2018-06-06] MEDS: Pantoprazole 40 mg EC Tab PO SCH ×2 (08:33→16:59)
--- NOTE | 2018-06-06 11:29 | CP.PCM.PN ---
<Jean Marie Chairez - Last Filed: 06/06/18 11:26> Subjective - Date & Time of Evaluation Date of Evaluation: 06/06/18 Time of Evaluation: 11:26 - Subjective Subjective: PGY6 GI Fellow Progress NOte Patient seen ambulating in hallways this morning. The patient continues to express pain in the LUQ, worse with palpation and movement. Notes some discomfort while walking the halls. Regardless, eager to advance diet. No episodes of hematochezia/melena/hematemesis. 12 system ROS performed and negative except where stated Objective - Vital Signs/Intake and Output Vital Signs (last 24 hours): Temp Pulse Resp BP Pulse Ox 98.3 F 84 20 107/56 L 100 06/06/18 07:00 06/06/18 09:46 06/06/18 07:00 06/06/18 09:46 06/06/18 07:00 Intake and Output: 06/06/18 06/06/18 06:59 18:59 Intake Total 720 Balance 720 - Medications Medications: Current Medications Amlodipine Besylate (Norvasc) 10 mg PO DAILY [facility] Last Admin: 06/06/18 09:46 Dose: 10 mg Dextrose (Dextrose 50% Inj) 0 ml IV STAT PRN; Protocol PRN Reason: Hypoglycemia Protocol Dextrose (Glutose 15) 0 gm PO ONCE PRN; Protocol PRN Reason: Hypoglycemia Protocol Glucagon (Glucagen Diagnostic Kit) 0 mg IM STAT PRN; Protocol PRN Reason: Hypoglycemia Protocol Dextrose (Dextrose 5% In Water 1000 Ml) 1,000 mls @ 0 mls/hr IV .Q0M PRN; Protocol PRN Reason: Hypoglycemia Protocol Morphine Sulfate (Morphine) 1 mg IVP Q6H PRN PRN Reason: Pain, severe (8-10) Last Admin: 06/06/18 06:19 Dose: 1 mg Pantoprazole Sodium (Protonix Ec Tab) 40 mg PO BIDAC [facility] Last Admin: 06/06/18 08:33 Dose: 40 mg Tamsulosin HCl (Flomax) 0.4 mg PO DAILY [facility] Last Admin: 06/06/18 09:46 Dose: 0.4 mg - Labs Labs: 06/05/18 07:42 06/04/18 06:34 PT 11.8 SECONDS (9.7-12.2) 06/03/18 19:03 INR 1.1 06/03/18 19:03 APTT 37 SECONDS (21-34) H 06/03/18 19:03 - Constitutional Appears: Non-toxic, No Acute Distress - Eye Exam Eye Exam: EOMI, PERRL - ENT Exam ENT Exam: Mucous Membranes Moist - Respiratory Exam Respiratory Exam: Clear to Ausculation Bilateral. absent: Rales, Rhonchi, Wheezes - Cardiovascular Exam Cardiovascular Exam: RRR, +S1, +S2 - GI/Abdominal Exam GI & Abdominal Exam: Soft, Tenderness (LUQ), Normal Bowel Sounds. absent: Distended, Firm, Guarding, Rigid, Organomegaly - Extremities Exam Extremities Exam: Normal Inspection. absent: Pedal Edema - Neurological Exam Neurological Exam: Alert, Awake, Oriented x3 - Psychiatric Exam Psychiatric exam: Normal Affect, Normal Mood - Skin Skin Exam: Dry, Warm Assessment and Plan - Assessment and Plan (Free Text) Assessment: Patient is a 67yo male, poor historian, with PMHx significant for PUD s/p ?billroth, HTN, DM, partial colectomy (unclear etiology) who presented to the hospital with complaint of abdominal pain and vomiting -Peptic ulcer disease - untreated since January -Anemia -H/O gastrojejunostomy -DM -HTN Plan: -HGB has remained stable since admission and no evidence of overt blood loss -Known PUD with gastrojejunal anastamotic ulceration noted on prior EGD - no adequate tx since January -Continue Pantoprazole 40mg PO BIDAC -Monitor CBC -Given ongoing pain, worsened anemia on admission, consider EGD tomorrow -No evidence for perforation on examination or imaging and no evidence of malignancy on previous biopsy -Maintain liquid diet, NPO past midnight <Anup Tavarez - Last Filed: 06/06/18 12:35> Objective - Vital Signs/Intake and Output Vital Signs (last 24 hours): Temp Pulse Resp BP Pulse Ox 98.3 F 84 20 107/56 L 100 06/06/18 07:00 06/06/18 09:46 06/06/18 07:00 06/06/18 09:46 06/06/18 07:00 Intake and Output: 06/06/18 06/06/18 06:59 18:59 Intake Total 720 Balance 720 - Medications Medications: Current Medications Amlodipine Besylate (Norvasc) 10 mg PO DAILY [facility] Last Admin: 06/06/18 09:46 Dose: 10 mg Dextrose (Dextrose 50% Inj) 0 ml IV STAT PRN; Protocol PRN Reason: Hypoglycemia Protocol Dextrose (Glutose 15) 0 gm PO ONCE PRN; Protocol PRN Reason: Hypoglycemia Protocol Glucagon (Glucagen Diagnostic Kit) 0 mg IM STAT PRN; Protocol PRN Reason: Hypoglycemia Protocol Dextrose (Dextrose 5% In Water 1000 Ml) 1,000 mls @ 0 mls/hr IV .Q0M PRN; Protocol PRN Reason: Hypoglycemia Protocol Morphine Sulfate (Morphine) 1 mg IVP Q6H PRN PRN Reason: Pain, severe (8-10) Last Admin: 06/06/18 06:19 Dose: 1 mg Pantoprazole Sodium (Protonix Ec Tab) 40 mg PO BIDAC [facility] Last Admin: 06/06/18 08:33 Dose: 40 mg Tamsulosin HCl (Flomax) 0.4 mg PO DAILY [facility] Last Admin: 06/06/18 09:46 Dose: 0.4 mg - Labs Labs: 06/05/18 07:42 06/04/18 06:34 PT 11.8 SECONDS (9.7-12.2) 06/03/18 19:03 INR 1.1 06/03/18 19:03 APTT 37 SECONDS (21-34) H 06/03/18 19:03 Attending/Attestation - Attestation I have personally seen and examined this patient.: Yes I have fully participated in the care of the patient.: Yes I have reviewed all pertinent clinical information, including history, physical exam and plan: Yes Notes (Text): 06/06/18 12:35 The pt was interviewed and examined. Discussed with Dr. Chairez. Agree with Dr. Chairez's findings, assessment and plan as outlined above.
--- NOTE | 2018-06-06 14:13 | CP.PCM.PN ---
Subjective - Date & Time of Evaluation Date of Evaluation: 06/06/18 Time of Evaluation: 10:30 - Subjective Subjective: clinically same Objective - Vital Signs/Intake and Output Vital Signs (last 24 hours): Temp Pulse Resp BP Pulse Ox 98.3 F 84 20 107/56 L 100 06/06/18 07:00 06/06/18 09:46 06/06/18 07:00 06/06/18 09:46 06/06/18 07:00 Intake and Output: 06/06/18 06/06/18 06:59 18:59 Intake Total 720 Balance 720 - Medications Medications: Current Medications Amlodipine Besylate (Norvasc) 10 mg PO DAILY [facility] Last Admin: 06/06/18 09:46 Dose: 10 mg Dextrose (Dextrose 50% Inj) 0 ml IV STAT PRN; Protocol PRN Reason: Hypoglycemia Protocol Dextrose (Glutose 15) 0 gm PO ONCE PRN; Protocol PRN Reason: Hypoglycemia Protocol Glucagon (Glucagen Diagnostic Kit) 0 mg IM STAT PRN; Protocol PRN Reason: Hypoglycemia Protocol Dextrose (Dextrose 5% In Water 1000 Ml) 1,000 mls @ 0 mls/hr IV .Q0M PRN; Protocol PRN Reason: Hypoglycemia Protocol Morphine Sulfate (Morphine) 1 mg IVP Q6H PRN PRN Reason: Pain, severe (8-10) Last Admin: 06/06/18 06:19 Dose: 1 mg Pantoprazole Sodium (Protonix Ec Tab) 40 mg PO BIDAC [facility] Last Admin: 06/06/18 08:33 Dose: 40 mg Tamsulosin HCl (Flomax) 0.4 mg PO DAILY [facility] Last Admin: 06/06/18 09:46 Dose: 0.4 mg - Labs Labs: 06/05/18 07:42 06/04/18 06:34 PT 11.8 SECONDS (9.7-12.2) 06/03/18 19:03 INR 1.1 06/03/18 19:03 APTT 37 SECONDS (21-34) H 06/03/18 19:03 - Constitutional Appears: Well - Head Exam Head Exam: ATRAUMATIC, NORMAL INSPECTION, NORMOCEPHALIC - Eye Exam Eye Exam: EOMI, Normal appearance, PERRL Pupil Exam: NORMAL ACCOMODATION, PERRL - ENT Exam ENT Exam: Mucous Membranes Moist, Normal Exam - Neck Exam Neck Exam: Full ROM, Normal Inspection. absent: Lymphadenopathy - Respiratory Exam Respiratory Exam: Decreased Breath Sounds - Cardiovascular Exam Cardiovascular Exam: REGULAR RHYTHM, +S1, +S2 - GI/Abdominal Exam GI & Abdominal Exam: Soft, Diminished Bowel Sounds - Rectal Exam Rectal Exam: Deferred
[2018-06-07 02:30] VITALS: RESP 20
[2018-06-07] MEDS: Pantoprazole 40 mg EC Tab PO SCH ×2 (08:25→17:00)
--- NOTE | 2018-06-07 08:59 | CP.PCM.PN ---
<Arnlufo Gurrola - Last Filed: 06/07/18 14:09> Subjective - Date & Time of Evaluation Date of Evaluation: 06/07/18 Time of Evaluation: 08:55 - Subjective Subjective: Patient is feeling better. Requesting food. Denies bleeding. Admits mild abdominal pain, non-specific. He had soft brown BM lastnight. Objective - Vital Signs/Intake and Output Vital Signs (last 24 hours): Temp Pulse Resp BP Pulse Ox 99.5 F 68 20 120/77 100 06/07/18 04:36 06/07/18 04:36 06/07/18 04:36 06/07/18 04:36 06/07/18 02:29 Intake and Output: 06/07/18 06/07/18 06:59 18:59 Output Total 1000 Balance -1000 - Medications Medications: Current Medications Amlodipine Besylate (Norvasc) 10 mg PO DAILY [facility] Last Admin: 06/06/18 09:46 Dose: 10 mg Dextrose (Dextrose 50% Inj) 0 ml IV STAT PRN; Protocol PRN Reason: Hypoglycemia Protocol Dextrose (Glutose 15) 0 gm PO ONCE PRN; Protocol PRN Reason: Hypoglycemia Protocol Glucagon (Glucagen Diagnostic Kit) 0 mg IM STAT PRN; Protocol PRN Reason: Hypoglycemia Protocol Dextrose (Dextrose 5% In Water 1000 Ml) 1,000 mls @ 0 mls/hr IV .Q0M PRN; Protocol PRN Reason: Hypoglycemia Protocol Morphine Sulfate (Morphine) 1 mg IVP Q6H PRN PRN Reason: Pain, severe (8-10) Last Admin: 06/07/18 08:47 Dose: 1 mg Pantoprazole Sodium (Protonix Ec Tab) 40 mg PO BIDAC [facility] Last Admin: 06/07/18 08:25 Dose: 40 mg Tamsulosin HCl (Flomax) 0.4 mg PO DAILY [facility] Last Admin: 06/06/18 09:46 Dose: 0.4 mg - Labs Labs: 06/05/18 07:42 06/04/18 06:34 PT 11.8 SECONDS (9.7-12.2) 06/03/18 19:03 INR 1.1 06/03/18 19:03 APTT 37 SECONDS (21-34) H 06/03/18 19:03 - Constitutional Appears: Non-toxic, No Acute Distress - Head Exam Head Exam: NORMAL INSPECTION, NORMOCEPHALIC - Eye Exam Eye Exam: EOMI, Normal appearance - ENT Exam ENT Exam: Mucous Membranes Moist, Normal Exam - Respiratory Exam Respiratory Exam: Clear to Ausculation Bilateral, NORMAL BREATHING PATTERN - Cardiovascular Exam Cardiovascular Exam: REGULAR RHYTHM, +S1, +S2 - GI/Abdominal Exam GI & Abdominal Exam: Soft, Tenderness, Normal Bowel Sounds - Extremities Exam Extremities Exam: Full ROM, Normal Inspection - Neurological Exam Neurological Exam: Alert, Awake, Oriented x3 - Psychiatric Exam Psychiatric exam: Normal Affect, Normal Mood - Skin Skin Exam: Dry, Normal Color Assessment and Plan - Assessment and Plan (Free Text) Assessment: Patient is a 67yo male, poor historian, with PMHx significant for PUD s/p ?billroth, HTN, DM, partial colectomy (unclear etiology) who presented to the hospital with complaint of abdominal pain and vomiting -Peptic ulcer disease - untreated since January -Anemia -H/O gastrojejunostomy -DM -HTN Plan: -HGB has remained stable s/p 2u pRBCs and no evidence of overt blood loss -Known PUD with gastrojejunal anastamotic ulceration noted on prior EGD - no adequate tx since January -Continue Pantoprazole 40mg PO daily. Must continue 40mg pantoprazole daily as an outpatient. This has been emphasized with the patient and he understands. He states he is able to get the Rx as an outpt. -Monitor CBC -Patient is improving, and Hb stable. No EGD at this time. -No evidence for perforation on examination or imaging and no evidence of malignancy on previous biopsy -GI soft, low fiber diet. -Avoid NSAIDs -OK to d/c per GI <Efren Astorga Y - Last Filed: 06/07/18 14:16> Objective - Vital Signs/Intake and Output Vital Signs (last 24 hours): Temp Pulse Resp BP Pulse Ox 98.3 F 71 20 127/81 99 06/07/18 07:00 06/07/18 07:55 06/07/18 07:00 06/07/18 07:00 06/07/18 07:00 Intake and Output: 06/07/18 06/07/18 06:59 18:59 Output Total 1000 Balance -1000 - Medications Medications: Current Medications Amlodipine Besylate (Norvasc) 10 mg PO DAILY [facility] Last Admin: 06/07/18 10:30 Dose: 10 mg Dextrose (Dextrose 50% Inj) 0 ml IV STAT PRN; Protocol PRN Reason: Hypoglycemia Protocol Dextrose (Glutose 15) 0 gm PO ONCE PRN; Protocol PRN Reason: Hypoglycemia Protocol Glucagon (Glucagen Diagnostic Kit) 0 mg IM STAT PRN; Protocol PRN Reason: Hypoglycemia Protocol Dextrose (Dextrose 5% In Water 1000 Ml) 1,000 mls @ 0 mls/hr IV .Q0M PRN; Protocol PRN Reason: Hypoglycemia Protocol Morphine Sulfate (Morphine) 1 mg IVP Q6H PRN PRN Reason: Pain, severe (8-10) Last Admin: 06/07/18 08:47 Dose: 1 mg Pantoprazole Sodium (Protonix Ec Tab) 40 mg PO BIDAC [facility] Last Admin: 06/07/18 08:25 Dose: 40 mg Tamsulosin HCl (Flomax) 0.4 mg PO DAILY [facility] Last Admin: 06/07/18 10:30 Dose: 0.4 mg - Labs Labs: 06/07/18 08:38 06/04/18 06:34 PT 11.8 SECONDS (9.7-12.2) 06/03/18 19:03 INR 1.1 06/03/18 19:03 APTT 37 SECONDS (21-34) H 06/03/18 19:03 Attending/Attestation - Attestation I have personally seen and examined this patient.: Yes I have fully participated in the care of the patient.: Yes I have reviewed all pertinent clinical information, including history, physical exam and plan: Yes Notes (Text): 06/07/18 14:14 I have seen and examined patient with GI fellow. No acute events overnight, his abdominal pain has improved and he is tolerating PO diet without difficulty. He denies nausea, vomiting, fever/chills. DM / HTN PUD s/p ?billroth Anemia, abdominal pain Medication non-compliance Partial colectomy - unclear etiology - Diet as tolerated - H/H stable, no overt bleeding noted, continue to monitor - Continue with PPI therapy - NSAID avoidance - Patient would benefit from additional outpatient follow up. No further planned GI intervention at this time, will sign off case. Please reconsult as necessary, thank you.
[2018-06-07 09:00] LABS: HEMOGLOBIN 9.6 g/dL (12.0-18.0); MEAN CELL VOLUME 85.5 fL (80.0-94.0); MEAN CORPUSCULAR HEMOGLOBIN 27.4 pg (27.0-31.0); MEAN PLATELET VOLUME 8.5 fL (7.2-11.7); RBC 3.49 Mil/uL (4.40-5.90); RED CELL DISTRIBUTION WIDTH 16.2 % (11.5-14.5); WHITE BLOOD COUNT 3.6 K/uL (4.8-10.8)
--- NOTE | 2018-06-07 18:00 | CP.PCM.PN ---
Subjective - Date & Time of Evaluation Date of Evaluation: 06/07/18 Time of Evaluation: 11:00 - Subjective Subjective: clinically same Objective - Vital Signs/Intake and Output Vital Signs (last 24 hours): Temp Pulse Resp BP Pulse Ox 98.7 F 78 20 119/73 99 06/07/18 15:30 06/07/18 15:30 06/07/18 15:30 06/07/18 15:30 06/07/18 15:30 Intake and Output: 06/07/18 06/07/18 06:59 18:59 Output Total 1000 Balance -1000 - Medications Medications: Current Medications Amlodipine Besylate (Norvasc) 10 mg PO DAILY [facility] Last Admin: 06/07/18 10:30 Dose: 10 mg Dextrose (Dextrose 50% Inj) 0 ml IV STAT PRN; Protocol PRN Reason: Hypoglycemia Protocol Dextrose (Glutose 15) 0 gm PO ONCE PRN; Protocol PRN Reason: Hypoglycemia Protocol Glucagon (Glucagen Diagnostic Kit) 0 mg IM STAT PRN; Protocol PRN Reason: Hypoglycemia Protocol Dextrose (Dextrose 5% In Water 1000 Ml) 1,000 mls @ 0 mls/hr IV .Q0M PRN; Protocol PRN Reason: Hypoglycemia Protocol Morphine Sulfate (Morphine) 1 mg IVP Q6H PRN PRN Reason: Pain, severe (8-10) Last Admin: 06/07/18 14:55 Dose: 1 mg Pantoprazole Sodium (Protonix Ec Tab) 40 mg PO BIDAC [facility] Last Admin: 06/07/18 08:25 Dose: 40 mg Tamsulosin HCl (Flomax) 0.4 mg PO DAILY [facility] Last Admin: 06/07/18 10:30 Dose: 0.4 mg - Labs Labs: 06/07/18 08:38 06/04/18 06:34 PT 11.8 SECONDS (9.7-12.2) 06/03/18 19:03 INR 1.1 06/03/18 19:03 APTT 37 SECONDS (21-34) H 06/03/18 19:03 - Constitutional Appears: Well - Head Exam Head Exam: ATRAUMATIC, NORMAL INSPECTION, NORMOCEPHALIC - Eye Exam Eye Exam: EOMI, Normal appearance, PERRL Pupil Exam: NORMAL ACCOMODATION, PERRL - ENT Exam ENT Exam: Mucous Membranes Moist, Normal Exam - Neck Exam Neck Exam: Full ROM, Normal Inspection. absent: Lymphadenopathy - Respiratory Exam Respiratory Exam: Decreased Breath Sounds - Cardiovascular Exam Cardiovascular Exam: REGULAR RHYTHM, +S1, +S2 - GI/Abdominal Exam GI & Abdominal Exam: Soft, Diminished Bowel Sounds - Rectal Exam Rectal Exam: Deferred
[2018-06-08 01:15] VITALS: O2SAT 100
[2018-06-08 08:01] VITALS: BP 123/74; PULSE 70; TEMP 97.9
[2018-06-08] MEDS: Pantoprazole 40 mg EC Tab PO SCH (08:30)
--- NOTE | 2018-06-08 16:15 | CP.PCM.PN ---
Subjective - Date & Time of Evaluation Date of Evaluation: 06/08/18 Objective - Vital Signs/Intake and Output Vital Signs (last 24 hours): Temp Pulse Resp BP Pulse Ox 97.9 F 70 20 123/74 100 06/08/18 07:30 06/08/18 07:30 06/08/18 07:30 06/08/18 07:30 06/08/18 07:30 Intake and Output: 06/08/18 06/08/18 06:59 18:59 Output Total 450 Balance -450 - Labs Labs: 06/07/18 08:38 06/04/18 06:34 PT 11.8 SECONDS (9.7-12.2) 06/03/18 19:03 INR 1.1 06/03/18 19:03 APTT 37 SECONDS (21-34) H 06/03/18 19:03 Assessment and Plan - Assessment and Plan (Free Text) Plan: Patient on dextrose glucagon Amlodipine Follow-up with the patient's fingerstick hemoglobin remained stable after 2 units Follow-up with the GI follow-up with the other consultations continue soft diet no need for the EGD at this time
--- NOTE | 2018-06-08 17:44 | CP.PCM.PN ---
Subjective - Date & Time of Evaluation Date of Evaluation: 06/08/18 Time of Evaluation: 10:45 - Subjective Subjective: patient seen today denies any abdominal pain, N/V/D, no bleeding reported hgb - stable Objective - Vital Signs/Intake and Output Vital Signs (last 24 hours): Temp Pulse Resp BP Pulse Ox 97.9 F 70 20 123/74 100 06/08/18 07:30 06/08/18 07:30 06/08/18 07:30 06/08/18 07:30 06/08/18 07:30 Intake and Output: 06/08/18 06/08/18 06:59 18:59 Output Total 450 Balance -450 - Labs Labs: 06/07/18 08:38 06/04/18 06:34 PT 11.8 SECONDS (9.7-12.2) 06/03/18 19:03 INR 1.1 06/03/18 19:03 APTT 37 SECONDS (21-34) H 06/03/18 19:03 Assessment and Plan - Assessment and Plan (Free Text) Assessment: A/P 67 y/o male with a PMHx of hernia repair, colectomy, gastric ulcer admitted with anemia , s/p PRBC transfusion Dr. marroquin consulted fro anemia and upper GI bleed , D/w Dr. Marroquin pt had EGD recently and Hb stable. No EGD at this time. No evidence for perforation on examination or imaging and no evidence of malignancy on previous biopsy and OK to d/c per GI and continue protonix Patient referred to [facility] and denied by [facility] d/w Dr. Seo cleared fro discharge home today and f/u with Dr. Yue crenshaw office in 3-5 days
== END 2018-06-08 14:40 | disposition home or self-care (01) | DRG 638 ==
LOC: C.ER 17:57 → C.9E 20:34 → C.6T 23:54
PROVIDERS: ADMIT Internal Medicine Nephrology; ATTEND Internal Medicine Nephrology
PROC: 30233N1 Transfusion of Nonautologous Red Blood Cells into Peripheral Vein, Percutaneous Approach (ICD-10-PCS; principal; 2018-06-04)
DX: E11.65 Type 2 diabetes mellitus with hyperglycemia (principal); D62 Acute posthemorrhagic anemia; K92.2 Gastrointestinal hemorrhage, unspecified; K27.3 Acute peptic ulcer, site unspecified, without hemorrhage or perforation; R10.9 Unspecified abdominal pain; Z59.0 Homelessness; I10 Essential (primary) hypertension; Z91.14 Patient's other noncompliance with medication regimen; Z90.49 Acquired absence of other specified parts of digestive tract; F17.210 Nicotine dependence, cigarettes, uncomplicated; R26.81 Unsteadiness on feet

== ENCOUNTER 2018-07-22 17:05 | Inpatient (IN) | payer MEDICARE ==
[2018-07-22 17:05] VITALS: BMI 24.0
[2018-07-22] MEDS ORDERED: Sodium Chloride 0.9% 1,000 ML IV ONE ×2 (17:46→21:30)
[2018-07-22] MEDS ORDERED: Sodium Chloride 0.9% 1,000 ML ONE (18:03)
--- NOTE | 2018-07-22 18:04 | C.PDOC ---
History Of Present Illness Pt is a 67 y/o male, whose PMHx includes DM, HTN, heniorrhaphy, colitis, and colectomy, who is presenting to the ED for his third for evaluation of nausea, vomiting, diarrhea and abdominal pain that has been ongoing since 07/15. He denies CP, SOB, or any urinary complaints. Time Seen by Provider: 07/22/18 17:29 Chief Complaint (Nursing): Abdominal Pain History Per: Patient History/Exam Limitations: no limitations Onset/Duration Of Symptoms: Days Current Symptoms Are (Timing): Still Present Associated Symptoms: Nausea, Vomiting, Diarrhea. denies: Chest Pain, Other (shortness of breath ) Recent travel outside of the [place]: No Additional History Per: Patient Past Medical History Reviewed: Historical Data, Nursing Documentation, Vital Signs Vital Signs: Last Vital Signs Temp 98.3 F 07/22/18 17:14 Pulse 77 07/22/18 17:14 Resp 20 07/22/18 17:14 BP 183/109 H 07/22/18 17:14 Pulse Ox 100 07/22/18 17:14 - Medical History PMH: HTN Denies: Chronic Kidney Disease Surgical History: Endoscopy, Hernia Repair - [facility] Procedures EXCISION OF JEJUNUM, ENDO, DIAGN (01/28/18) EXCISION OF LARGE INTESTINE, ENDO, DIAGN (07/05/17) EXCISION OF SMALL INTESTINE, ENDO, DIAGN (07/05/17) EXCISION OF STOMACH, ENDO, DIAGN (01/28/18) TRANSFUSE NONAUT RED BLOOD CELLS IN PERIPH VEIN, PERC (06/03/18) Family History: States: Unknown Family Hx - Social History Hx Alcohol Use: No Hx Substance Use: No (patient denies) - Immunization History Hx Tetanus Toxoid Vaccination: Yes Hx Influenza Vaccination: Yes Hx Pneumococcal Vaccination: Yes Review Of Systems Cardiovascular: Negative for: Chest Pain Respiratory: Negative for: Shortness of Breath Gastrointestinal: Positive for: Nausea, Vomiting, Abdominal Pain, Diarrhea Genitourinary: Negative for: Dysuria, Frequency, Hematuria Physical Exam - Physical Exam Appears: Non-toxic, No Acute Distress Skin: Normal Color, Warm, Dry Head: Atraumatic, Normacephalic Eye(s): bilateral: Normal Inspection Oral Mucosa: Moist Neck: Supple Chest: Symmetrical, No Deformity, No Tenderness Cardiovascular: Rhythm Regular, No Murmur Respiratory: Normal Breath Sounds, No Rales, No Rhonchi, No Wheezing Gastrointestinal/Abdominal: Soft, Tenderness (diffuse), No Distention, Rebound, Other (surgical scars to abdomen ) Extremity: Normal ROM Neurological/Psych: Oriented x3, Normal Speech, Normal Cognition ED Course And Treatment - Laboratory Results Result Diagrams: 07/22/18 18:08 07/22/18 18:08 ECG: Interpreted By Me, Viewed By Me ECG Rhythm: Sinus Rhythm Interpretation Of ECG: Normal Sinus Rhythm at rate 78bpm. Normal axis and intervals. No ST/T wave abnormalities. Rate From EC O2 Sat by Pulse Oximetry: 100 Medical Decision Making Medical Decision Making: Assessment: abdominal pain, nausea, vomiting and diarrhea Plan: * bloodwork * urinalysis * CT A/P * EKG * Pepcid IVP * Toradol IVP * Zofran IVP * IV Fluids * reassess and disposition Progress: Bloodwork, urinalysis, CT A/P, EKG ordered and reviewed. Patient given Pepcid IVP, Toradol IVP, Zofran IVP, and IV Fluids. Prior records reviewed: Patient's CT scans from 07/15 and 07/17 showed no acute pathology, respectively. Patient was discharged on 07/15 and 07/17. Disposition - Disposition Disposition Time: 19:00 Condition: STABLE Forms: [facility] (Serbian) - Clinical Impression Clinical Impression: Abdominal pain - Scribe Statement The provider has reviewed the documentation as recorded by the Scribe (Mechelle Whitlock) Provider Attestation: All medical record entries made by the Scribe were at my direction and personally dictated by me. I have reviewed the chart and agree that the record accurately reflects my personal performance of the history, physical exam, medical decision making, and the department course for this patient. I have also personally directed, reviewed, and agree with the discharge instructions and disposition. Physician Patient Turnover Patient Signed Over To: Althea Bradford Handoff Comments: pending CT A/P results and disposition
[2018-07-22 18:16] LABS: BASO % 0.2 % (0.0-2.0); EOS # 0.1 K/uL (0.0-0.7); EOS % 1.8 % (0.0-4.0); HEMOGLOBIN 10.1 g/dL (12.0-18.0); LYMPH # 0.9 K/uL (1.0-4.3); LYMPH % 15.7 % (20.0-40.0); MEAN CELL VOLUME 78.6 fL (80.0-94.0); MEAN CORPUSCULAR HEMOGLOBIN 24.5 pg (27.0-31.0); MEAN CORPUSCULAR HGB CONC 31.2 g/dL (33.0-37.0); MEAN PLATELET VOLUME 7.9 fL (7.2-11.7); MONO # 0.3 K/uL (0.0-0.8); MONO % 5.4 % (0.0-10.0); NEUT # 4.4 K/uL (1.8-7.0); NEUT % 76.9 % (50.0-75.0); RBC 4.1 Mil/uL (4.40-5.90); RED CELL DISTRIBUTION WIDTH 19.2 % (11.5-14.5); WHITE BLOOD COUNT 5.8 K/uL (4.8-10.8)
[2018-07-22 18:29] LABS: ALB/GLOB RATIO 1.4 (1.0-2.1); ALBUMIN 4.3 g/dL (3.5-5.0); ALT/SGPT 8 U/L (21-72); AST/SGOT 22 U/L (17-59); BLOOD UREA NITROGEN 19 mg/dL (9-20); CALCIUM 8.8 mg/dl (8.6-10.4); GFR NON-AFRICAN AMERICAN > 60; LIPASE 184 U/L (23-300)
[2018-07-22 18:40] LABS: B-TYPE NATRIURETIC PEPTIDE 568 pg/mL (0-900)
[2018-07-22] MEDS ORDERED: Iodixanol 320 MG/ML 100 ML BOTTLE IV ONE (18:58)
[2018-07-22 21:14] LABS: SQUAMOUS EPITHIAL < 1 /hpf (0-5); URINE BILIRUBIN NEGATIVE (NEGATIVE); URINE BLOOD NEGATIVE (NEGATIVE); URINE CLARITY Clear (Clear); URINE COLOR Yellow (YELLOW); URINE GLUCOSE (UA) NORMAL (Normal); URINE LEUKOCYTE ESTERASE NEG Leu/uL (Negative); URINE PROTEIN 1+ mg/dL (NEGATIVE); URINE UROBILINOGEN NORMAL mg/dL (0.2-1.0)
[2018-07-22] MEDS: Pantoprazole 80 MG in Sodium Chloride 0.9% 100 ML IVP SCH (22:45)
[2018-07-23] MEDS ORDERED: Sodium Chloride 0.9% 1,000 ML IV ONE (02:26)
[2018-07-23 07:03] LABS: BASO % 0.6 % (0.0-2.0); EOS # 0.1 K/uL (0.0-0.7); EOS % 1.9 % (0.0-4.0); LYMPH # 1.3 K/uL (1.0-4.3); LYMPH % 38.2 % (20.0-40.0); MEAN CORPUSCULAR HEMOGLOBIN 25.1 pg (27.0-31.0); MEAN CORPUSCULAR HGB CONC 32.2 g/dL (33.0-37.0); MEAN PLATELET VOLUME 8.6 fL (7.2-11.7); MONO # 0.2 K/uL (0.0-0.8); MONO % 4.8 % (0.0-10.0); NEUT # 1.9 K/uL (1.8-7.0); NEUT % 54.5 % (50.0-75.0); RBC 2.28 Mil/uL (4.40-5.90); RED CELL DISTRIBUTION WIDTH 18.8 % (11.5-14.5); WHITE BLOOD COUNT 3.5 K/uL (4.8-10.8)
[2018-07-23 07:12] LABS: HEMOGLOBIN 5.7 g/dL (12.0-18.0)
[2018-07-23] MEDS: Pantoprazole 80 MG in Sodium Chloride 0.9% 100 ML IVP SCH (07:30)
--- NOTE | 2018-07-23 07:31 | CP.PCM.PN ---
Subjective - Date & Time of Evaluation Date of Evaluation: 07/23/18 Time of Evaluation: 10:41 - Subjective Subjective: Medicine Note for Dr. Scott Whitlock's Service This is a 67 year old male with PMHx of hypertension, hx of gastro-colic fistula, severe obstructing PUD with gastric/duodenal ulcers noted in 06/2017 s/p possible gastrojejunostomy who was admitted for abdominal pain. Patient was seen in the ED 07/15, 07/17, and 07/22 for continued abdominal pain. Imaging performed was unremarkable. On day of admission patient passed a large bowel movement that was bright red blood. Patient's hemoglobin on admission was 10.1, now 5.6. Patient will get transfused 2 units PRBCs and colonoscopy scheduled for 11am today. Admitted to dizziness, abdominal pain, weakness ; denied chest pain, shortness of breath, n/v/d/c, or urinary symptoms. Last EGD was at [facility] [place] 02/10 which found several ulcers at suspected anastamotic site. Last CSPY 07/12 with congested mucosa throughout (Bx mild inflammation) PMHx: as noted above PSHx: EGD, Colonoscopies, Gastrojejunostomy, ex-lap colostomy & reversal, left open inguinal hernia repair All: NKDA SHx: Admitted to ~1/2 pack per month for the past 10 years, admits to history of heavy alcohol and drug use (could not report which drug) FHx: Unremarkable Objective - Vital Signs/Intake and Output Vital Signs (last 24 hours): Temp Pulse Resp BP Pulse Ox 98.4 F 80 19 105/68 100 07/23/18 07:00 07/23/18 07:00 07/23/18 07:00 07/23/18 07:00 07/23/18 07:00 - Medications Medications: Current Medications Pantoprazole Sodium 80 mg/ (Sodium Chloride) 100 mls @ 10 mls/hr IVP .Q10H SHIMA Last Admin: 07/22/18 22:45 Dose: 10 mls/hr Sodium Chloride (Sodium Chloride 0.9%) 1,000 mls @ 100 mls/hr IV .Q10H SHIMA - Labs Labs: 07/23/18 06:56 07/22/18 18:08 - Constitutional Appears: Chronically Ill - Head Exam Head Exam: NORMAL INSPECTION, NORMOCEPHALIC - Eye Exam Eye Exam: EOMI, Normal appearance, PERRL Pupil Exam: NORMAL ACCOMODATION Additional comments: pallor noted - Respiratory Exam Respiratory Exam: NORMAL BREATHING PATTERN. absent: Decreased Breath Sounds - Cardiovascular Exam Cardiovascular Exam: Tachycardia, +S1, +S2 - GI/Abdominal Exam GI & Abdominal Exam: Soft, Tenderness, Normal Bowel Sounds. absent: Distended - Rectal Exam Rectal Exam: Deferred (MICHAEL performed by GI ) - Extremities Exam Extremities Exam: Normal Inspection. absent: Pedal Edema, Tenderness - Neurological Exam Neurological Exam: Alert, Awake, Oriented x3 - Psychiatric Exam Psychiatric exam: Anxious, Normal Affect, Normal Mood - Skin Skin Exam: Dry, Intact, Normal Color, Warm Assessment and Plan - Assessment and Plan (Free Text) Plan: Acute Blood Loss Anemia Hematochezia H/o obstructing PUD with gastric/duodenal ulcers S/p Gastrojejunostomy - GI consulted, Dr. Astorga - Surgery consulted, Dr. Duong Imaging: - CT abdomen/pelvis with IV contrast: Diffuse gastric and small bowel wall thickening in the left upper abdomen suspicious for gastroenteritis. Contracted gallbladder demonstrate diffuse wall thickening without definite CT evidence of acute cholecystitis. Management: - Hemoglobin dropped from 10.1 to 5.6 - Transferred to ICU - NPO, PPI Drip - 2 units PRBCs to be administered - EGD to be performed Hypertension - Will refrain from any mediations in light of hypotension and current GI Bleed - Restart once patient is stable Prophylactic Measures - GI PPX: on Protonix drip - DVT PPX: SCDs, VTE c/i due to active GI bleed All management as per Dr. Scott Whitlock, Parvin Goodson DO, PGY2
[2018-07-23 07:35] LABS: ALB/GLOB RATIO 1.1 (1.0-2.1); ALBUMIN 2.5 g/dL (3.5-5.0); ALT/SGPT 18 U/L (21-72); AST/SGOT 12 U/L (17-59); BLOOD UREA NITROGEN 27 mg/dL (9-20); CALCIUM 7.4 mg/dl (8.6-10.4); GFR NON-AFRICAN AMERICAN > 60
[2018-07-23] MEDS: Sodium Chloride 0.9% 1,000 ML IV SCH ×2 (07:40→17:42)
[2018-07-23 08:05] LABS: BASO % 0.7 % (0.0-2.0); EOS # 0.1 K/uL (0.0-0.7); EOS % 1.6 % (0.0-4.0); LYMPH # 1.3 K/uL (1.0-4.3); MEAN CELL VOLUME 78.5 fL (80.0-94.0); MEAN CORPUSCULAR HEMOGLOBIN 25.4 pg (27.0-31.0); MEAN CORPUSCULAR HGB CONC 32.4 g/dL (33.0-37.0); MEAN PLATELET VOLUME 8.8 fL (7.2-11.7); MONO # 0.2 K/uL (0.0-0.8); MONO % 5.9 % (0.0-10.0); NEUT # 2.1 K/uL (1.8-7.0); NEUT % 56.8 % (50.0-75.0); NRBC % 0.1 % (0.0-2.0); RBC 2.21 Mil/uL (4.40-5.90); RED CELL DISTRIBUTION WIDTH 18.7 % (11.5-14.5); WHITE BLOOD COUNT 3.6 K/uL (4.8-10.8)
[2018-07-23 08:12] LABS: HEMOGLOBIN 5.6 g/dL (12.0-18.0)
--- NOTE | 2018-07-23 08:54 | CP.PCM.CON ---
<Ty Grossman - Last Filed: 07/23/18 09:05> History of Present Illness - History of Present Illness History of Present Illness: PGY-4 GI Fellow Consult Note Pt is a 67 yo BM, homeless, hx of gastro-colic fistula, severe obstructing PUD with gastric/duodenal ulcers noted in 06/2017 s/p possible gastrojejunostomy, HTN, DM, presenting for abd pain. He has been seen in the ED multiple times recently without acute findings. However, he returned in the PM of 07/22 with persistent L sided abd/flank pain, described as sharp, non-radiating without any clear precipitating or alleviating factors. He reports some associated NB/NB emesis. Of note, he states that he has not been compliant with PPI therapy as described. He states that he occasionally has some loose stools with BRBPR but that early this AM of 07/23, he had more bright red blood with black mixed in. Hgb this AM was down to 5.7 from 10.1 the previous night. Vitals stable without tachycardia. Pt currently has PRBCs ordered stat, PPI gtt, NPO and plans to transfer to ICU. Last EGD was at [facility] [place] 02/10 which found several ulcers at suspected anastamotic site. Last CSPY 07/12 with congested mucosa throughout (Bx mild inflammation) 12 point ROS negative other than stated above PMHx: As above PSHx: Gastrojejunostomy Meds: Reviewed in chart FHx: Denied GI Problems Social: Denies tobacco, EtOH or illicit drug use All: NKDA Past Patient History - Infectious Disease Hx of Infectious Diseases: None - Tetanus Immunizations Tetanus Immunization: Unknown - Past Medical History & Family History Past Medical History?: Yes - Past Social History Smoking Status: Never Smoked - CARDIAC Hx Hypertension: Yes - PULMONARY Hx Respiratory Disorders: No - NEUROLOGICAL Hx Neurological Disorder: No - HEENT Hx HEENT Problems: No - RENAL Hx Chronic Kidney Disease: No - ENDOCRINE/METABOLIC Hx Endocrine Disorders: No Hx Diabetes Mellitus Type 2: Yes - HEMATOLOGICAL/ONCOLOGICAL Hx Blood Disorders: No - INTEGUMENTARY Other/Comment: thick hard toenails, dry leathery discolored skin ble, 1cm round dry scab to left knee, foul smelling body odor, healed surgical scar abd - MUSCULOSKELETAL/RHEUMATOLOGICAL Hx Musculoskeletal Disorders: Yes Hx Falls: No Hx Unsteady Gait: Yes - GASTROINTESTINAL Hx Gastrointestinal Disorders: Yes (colitis) - GENITOURINARY/GYNECOLOGICAL Hx Genitourinary Disorders: No - PSYCHIATRIC Hx Substance Use: No (patient denies) - SURGICAL HISTORY Hx Surgeries: Yes (abdominal surgery) Hx Herniorrhaphy: Yes Other/Comment: "I've had surgery on my kidneys and colon. I don't know why." kidney biopsy? - ANESTHESIA Hx Anesthesia: Yes Hx Anesthesia Reactions: No Hx Malignant Hyperthermia: No Meds Allergies/Adverse Reactions: Allergies Allergy/AdvReac Type Severity Reaction Status Date / Time No Known Allergies Allergy Verified 07/22/18 17:18 - Medications Medications: Current Medications Pantoprazole Sodium 80 mg/ (Sodium Chloride) 100 mls @ 10 mls/hr IVP .Q10H SHIMA Last Admin: 07/22/18 22:45 Dose: 10 mls/hr Sodium Chloride (Sodium Chloride 0.9%) 1,000 mls @ 100 mls/hr IV .Q10H SHIMA Physical Exam - Constitutional Appears: No Acute Distress, Chronically Ill - Head Exam Head Exam: ATRAUMATIC, NORMAL INSPECTION - Eye Exam Eye Exam: EOMI. absent: Scleral icterus - ENT Exam ENT Exam: Mucous Membranes Dry. absent: Mucous Membranes Moist - Respiratory Exam Respiratory Exam: Clear to Auscultation Bilateral, NORMAL BREATHING PATTERN. absent: Accessory Muscle Use - Cardiovascular Exam Cardiovascular Exam: REGULAR RHYTHM, RRR - GI/Abdominal Exam GI & Abdominal Exam: Firm, Guarding, Normal Bowel Sounds, Tenderness. absent: Bruit, Diminished Bowel Sounds, Distended, Hernia, Organomegaly, Pulsatile Mass, Rebound, Rigid, Soft Additional comments: diffusely ttp with guarding throughout, large midline scar. - Rectal Exam Rectal Exam: NORMAL INSPECTION Additional comments: Bright red blood visualized on MICHAEL, no obvious palpable masses - Extremities Exam Extremities exam: Positive for: normal inspection. Negative for: pedal edema - Neurological Exam Neurological exam: Alert, CN II-XII Intact - Psychiatric Exam Psychiatric exam: Normal Affect, Normal Mood - Skin Skin Exam: Dry, Intact Results - Vital Signs Recent Vital Signs: Last Vital Signs Temp 98.4 F 07/23/18 07:00 Pulse 80 07/23/18 07:00 Resp 19 07/23/18 07:00 BP 105/68 07/23/18 07:00 Pulse Ox 100 07/23/18 07:00 - Labs Result Diagrams: 07/23/18 08:02 07/23/18 06:56 Labs: Laboratory Results - last 24 hr 07/22/18 07/22/18 07/22/18 18:08 18:08 21:06 WBC 5.8 D RBC 4.10 L Hgb 10.1 L Hct 32.2 L MCV 78.6 L D MCH 24.5 L MCHC 31.2 L RDW 19.2 H Plt Count 308 MPV 7.9 Neut % (Auto) 76.9 H Lymph % (Auto) 15.7 L Castro % (Auto) 5.4 Eos % (Auto) 1.8 Baso % (Auto) 0.2 Neut # (Auto) 4.4 Lymph # (Auto) 0.9 L Castro # (Auto) 0.3 Eos # (Auto) 0.1 Baso # (Auto) 0.0 Sodium 136 Potassium 4.4 Chloride 102 Carbon Dioxide 26 Anion Gap 13 BUN 19 Creatinine 1.0 Est GFR ( Amer) > 60 Est GFR (Non-Af Amer) > 60 Random Glucose 86 Calcium 8.8 Total Bilirubin 0.3 AST 22 ALT 8 L D Alkaline Phosphatase 81 Troponin I < 0.0120 NT-Pro-B Natriuret Pep 568 Total Protein 7.3 Albumin 4.3 Globulin 3.0 Albumin/Globulin Ratio 1.4 Lipase 184 Urine Color Yellow Urine Clarity Clear Urine pH 5.0 Ur Specific [place] > 1.060 H Urine Protein 1+ H Urine Glucose (UA) Normal Urine Ketones Negative Urine Blood Negative Urine Nitrate Negative Urine Bilirubin Negative Urine Urobilinogen Normal Ur Leukocyte Esterase Neg Urine WBC (Auto) 1 Urine RBC (Auto) 1 Ur Squamous Epith Cells < 1 Blood Type Antibody Screen 07/23/18 07/23/18 07/23/18 06:56 06:56 07:42 WBC 3.5 L RBC 2.28 L Hgb 5.7 L* D Hct 17.7 L MCV 78.0 L MCH 25.1 L MCHC 32.2 L RDW 18.8 H Plt Count 208 D MPV 8.6 Neut % (Auto) 54.5 Lymph % (Auto) 38.2 Castro % (Auto) 4.8 Eos % (Auto) 1.9 Baso % (Auto) 0.6 Neut # (Auto) 1.9 Lymph # (Auto) 1.3 Castro # (Auto) 0.2 Eos # (Auto) 0.1 Baso # (Auto) 0.0 Sodium 136 Potassium 4.1 Chloride 109 H Carbon Dioxide 21 L Anion Gap 9 L BUN 27 H Creatinine 1.0 Est GFR ( Amer) > 60 Est GFR (Non-Af Amer) > 60 Random Glucose 82 Calcium 7.4 L Total Bilirubin 0.2 AST 12 L D ALT 18 L D Alkaline Phosphatase 58 Troponin I NT-Pro-B Natriuret Pep Total Protein 4.8 L Albumin 2.5 L D Globulin 2.3 Albumin/Globulin Ratio 1.1 Lipase Urine Color Urine Clarity Urine pH Ur Specific [place] Urine Protein Urine Glucose (UA) Urine Ketones Urine Blood Urine Nitrate Urine Bilirubin Urine Urobilinogen Ur Leukocyte Esterase Urine WBC (Auto) Urine RBC (Auto) Ur Squamous Epith Cells Blood Type O POSITIVE Antibody Screen Negative 07/23/18 08:02 WBC 3.6 L RBC 2.21 L Hgb 5.6 L* Hct 17.3 L MCV 78.5 L MCH 25.4 L MCHC 32.4 L RDW 18.7 H Plt Count 202 MPV 8.8 Neut % (Auto) 56.8 Lymph % (Auto) 35.0 Castro % (Auto) 5.9 Eos % (Auto) 1.6 Baso % (Auto) 0.7 Neut # (Auto) 2.1 Lymph # (Auto) 1.3 Castro # (Auto) 0.2 Eos # (Auto) 0.1 Baso # (Auto) 0.0 Sodium Potassium Chloride Carbon Dioxide Anion Gap BUN Creatinine Est GFR ( Amer) Est GFR (Non-Af Amer) Random Glucose Calcium Total Bilirubin AST ALT Alkaline Phosphatase Troponin I NT-Pro-B Natriuret Pep Total Protein Albumin Globulin Albumin/Globulin Ratio Lipase Urine Color Urine Clarity Urine pH Ur Specific [place] Urine Protein Urine Glucose (UA) Urine Ketones Urine Blood Urine Nitrate Urine Bilirubin Urine Urobilinogen Ur Leukocyte Esterase Urine WBC (Auto) Urine RBC (Auto) Ur Squamous Epith Cells Blood Type Antibody Screen Assessment & Plan - Assessment and Plan (Free Text) Assessment: 67 yo homeless BM with hx of severe obstructing PUD with gastric/duodenal ulcers noted in 06/2017 s/p possible gastrojejunostomy, gastro-colic fistula, HTN, DM presenting with abd pain and BRBPR. # Abd Pain, Hematochezia, Acute Blood Loss Anemia: Likely due to UGIB related to known PUD also at risk for anastamotic bleed. Furthermore, there is concern for gastrocolic fistula, therefore blood could bypass small instestine and dump directly into colon if fistula significant/patent. # H/o obstructing PUD with gastric/duodenal ulcers # S/p Gastrojejunostomy Plan: - NPO for EGD later this AM - PPI gtt - Transfuse PRBCs, monitor response - IVF volume resuscitation - 2 large bore IV access - Transfer to ICU - Gen Surg consult - Further recs pending EGD evaluation Pt discussed with Dr. Astorga (to examine later); please see attestation for further recs/changes. Ty Grossman, PGY-4 <Efren Astorga - Last Filed: 07/23/18 11:42> Meds - Medications Medications: Current Medications Sodium Chloride (Sodium Chloride 0.9%) 1,000 mls @ 100 mls/hr IV .Q10H SHIMA Last Admin: 07/23/18 07:40 Dose: 100 mls/hr Pantoprazole Sodium 80 mg/ (Sodium Chloride) 100 mls @ 10 mls/hr IVPB .Q10H SHIMA Pneumococcal Polyvalent Vaccine (Pneumovax 23 Vaccine) 0.5 ml IM .ONCE ONE Stop: 07/24/18 10:01 Results - Vital Signs Recent Vital Signs: Last Vital Signs Temp 98.6 F 07/23/18 11:00 Pulse 75 07/23/18 11:00 Resp 12 07/23/18 11:00 BP 123/66 07/23/18 11:00 Pulse Ox 100 07/23/18 07:00 - Labs Result Diagrams: 07/23/18 08:02 07/23/18 06:56 Labs: Laboratory Results - last 24 hr 07/22/18 07/22/18 07/22/18 18:08 18:08 21:06 WBC 5.8 D RBC 4.10 L Hgb 10.1 L Hct 32.2 L MCV 78.6 L D MCH 24.5 L MCHC 31.2 L RDW 19.2 H Plt Count 308 MPV 7.9 Neut % (Auto) 76.9 H Lymph % (Auto) 15.7 L Castro % (Auto) 5.4 Eos % (Auto) 1.8 Baso % (Auto) 0.2 Neut # (Auto) 4.4 Lymph # (Auto) 0.9 L Castro # (Auto) 0.3 Eos # (Auto) 0.1 Baso # (Auto) 0.0 Sodium 136 Potassium 4.4 Chloride 102 Carbon Dioxide 26 Anion Gap 13 BUN 19 Creatinine 1.0 Est GFR ( Amer) > 60 Est GFR (Non-Af Amer) > 60 Random Glucose 86 Calcium 8.8 Total Bilirubin 0.3 AST 22 ALT 8 L D Alkaline Phosphatase 81 Troponin I < 0.0120 NT-Pro-B Natriuret Pep 568 Total Protein 7.3 Albumin 4.3 Globulin 3.0 Albumin/Globulin Ratio 1.4 Lipase 184 Urine Color Yellow Urine Clarity Clear Urine pH 5.0 Ur Specific [place] > 1.060 H Urine Protein 1+ H Urine Glucose (UA) Normal Urine Ketones Negative Urine Blood Negative Urine Nitrate Negative Urine Bilirubin Negative Urine Urobilinogen Normal Ur Leukocyte Esterase Neg Urine WBC (Auto) 1 Urine RBC (Auto) 1 Ur Squamous Epith Cells < 1 Blood Type Antibody Screen 07/23/18 07/23/18 07/23/18 06:56 06:56 07:42 WBC 3.5 L RBC 2.28 L Hgb 5.7 L* D Hct 17.7 L MCV 78.0 L MCH 25.1 L MCHC 32.2 L RDW 18.8 H Plt Count 208 D MPV 8.6 Neut % (Auto) 54.5 Lymph % (Auto) 38.2 Castro % (Auto) 4.8 Eos % (Auto) 1.9 Baso % (Auto) 0.6 Neut # (Auto) 1.9 Lymph # (Auto) 1.3 Castro # (Auto) 0.2 Eos # (Auto) 0.1 Baso # (Auto) 0.0 Sodium 136 Potassium 4.1 Chloride 109 H Carbon Dioxide 21 L Anion Gap 9 L BUN 27 H Creatinine 1.0 Est GFR ( Amer) > 60 Est GFR (Non-Af Amer) > 60 Random Glucose 82 Calcium 7.4 L Total Bilirubin 0.2 AST 12 L D ALT 18 L D Alkaline Phosphatase 58 Troponin I NT-Pro-B Natriuret Pep Total Protein 4.8 L Albumin 2.5 L D Globulin 2.3 Albumin/Globulin Ratio 1.1 Lipase Urine Color Urine Clarity Urine pH Ur Specific [place] Urine Protein Urine Glucose (UA) Urine Ketones Urine Blood Urine Nitrate Urine Bilirubin Urine Urobilinogen Ur Leukocyte Esterase Urine WBC (Auto) Urine RBC (Auto) Ur Squamous Epith Cells Blood Type O POSITIVE Antibody Screen Negative 07/23/18 08:02 WBC 3.6 L RBC 2.21 L Hgb 5.6 L* Hct 17.3 L MCV 78.5 L MCH 25.4 L MCHC 32.4 L RDW 18.7 H Plt Count 202 MPV 8.8 Neut % (Auto) 56.8 Lymph % (Auto) 35.0 Castro % (Auto) 5.9 Eos % (Auto) 1.6 Baso % (Auto) 0.7 Neut # (Auto) 2.1 Lymph # (Auto) 1.3 Castro # (Auto) 0.2 Eos # (Auto) 0.1 Baso # (Auto) 0.0 Sodium Potassium Chloride Carbon Dioxide Anion Gap BUN Creatinine Est GFR ( Amer) Est GFR (Non-Af Amer) Random Glucose Calcium Total Bilirubin AST ALT Alkaline Phosphatase Troponin I NT-Pro-B Natriuret Pep Total Protein Albumin Globulin Albumin/Globulin Ratio Lipase Urine Color Urine Clarity Urine pH Ur Specific [place] Urine Protein Urine Glucose (UA) Urine Ketones Urine Blood Urine Nitrate Urine Bilirubin Urine Urobilinogen Ur Leukocyte Esterase Urine WBC (Auto) Urine RBC (Auto) Ur Squamous Epith Cells Blood Type Antibody Screen Attending/Attestation - Attestation I have personally seen and examined this patient.: Yes I have fully participated in the care of the patient.: Yes I have reviewed all pertinent clinical information: Yes Notes (Text): 07/23/18 11:37 I have seen and examined patient with GI fellow. Agree with above documentation with the following additions. In brief, this is a 67 year old male with history of PUD s/p bilroth, DM, HTN, who presents to hospital with complaint of abdominal pain. He had a prior hospitalization with similar complaints with admitted medication non-compliance. He reports intermittent LUQ abdominal pain, 5/10 intensity associated with non-bloody emesis. For the past few days he reports having dark colored stool, this morning noted to have fresh red rectal bleeding with significant drop in hemoglobin on bloodwork. He denies fever/chills, weight loss, or change in bowel habits. He had an EGD in January 2018 which showed a large ulcerated anastomotic ulcer. PUD s/p bilroth DM HTN Abdominal pain, rectal bleeding - severe posing threat to patient life - NPO - Continue to monitor H/H, s/p PRBC transfusion - IV PPI infusion therapy - Suggest surgical consultation given prior endoscopic findings with suspicion of acute bleeding - Will plan for emergent EGD today for further evaluation. Additional recommend ations following endoscopic examination.
[2018-07-23] MEDS ORDERED: Influenza Vaccine 60 MCG/0.5 ML SYR (3 yr & up) IM ONE (10:30)
--- NOTE | 2018-07-23 11:06 | CP.PCM.PN ---
Subjective - Date & Time of Evaluation Date of Evaluation: 07/23/18 Time of Evaluation: 10:56 - Subjective Subjective: General Surgery Consult For Dr. Duong This is a 67M poor historian who denies any medical history other than "surgery". He reports that he came to the hospital due to "stomach and colon" pain. In the hospital he had dark bloody stools. When asked about his surgical history he said that he [place] [facility] [place] He was not aware of what surgery he had or why. He reports an open kidney surgery unknown what was done and why. Previous history any medical information obtained from provider notes. PMH: PUD (hx perforated duodenal w/fistula and gastric ulcer), HTN, colitis, DM PSH: ex-lap colostomy & reversal, left open inguinal hernia repair All: NKDA SH: Admits to tobacco use - #10/mo x a few years, previous use was more, admits to hx ETOH use, hx of drug use- unable to report which drug Objective - Vital Signs/Intake and Output Vital Signs (last 24 hours): Temp Pulse Resp BP Pulse Ox 98.3 F 84 18 121/70 100 07/23/18 10:26 07/23/18 10:26 07/23/18 10:26 07/23/18 10:26 07/23/18 07:00 Intake and Output: 07/23/18 07/23/18 06:59 18:59 Intake Total 0 Balance 0 - Medications Medications: Current Medications Pantoprazole Sodium 80 mg/ (Sodium Chloride) 100 mls @ 10 mls/hr IVP .Q10H [facility] Last Admin: 07/23/18 07:30 Dose: Not Given Sodium Chloride (Sodium Chloride 0.9%) 1,000 mls @ 100 mls/hr IV .Q10H [facility] Last Admin: 07/23/18 07:40 Dose: 100 mls/hr Pneumococcal Polyvalent Vaccine (Pneumovax 23 Vaccine) 0.5 ml IM .ONCE ONE Stop: 07/24/18 10:01 - Labs Labs: 07/23/18 08:02 07/23/18 06:56 - Constitutional Appears: Non-toxic, No Acute Distress - Head Exam Head Exam: ATRAUMATIC, NORMOCEPHALIC - Eye Exam Eye Exam: EOMI - ENT Exam ENT Exam: Mucous Membranes Moist - Respiratory Exam Respiratory Exam: NORMAL BREATHING PATTERN - Cardiovascular Exam Cardiovascular Exam: +S1, +S2 - GI/Abdominal Exam GI & Abdominal Exam: Soft, Tenderness. absent: Distended, Firm, Guarding, Rigid - Neurological Exam Neurological Exam: Alert, Awake - Psychiatric Exam Psychiatric exam: Normal Affect, Normal Mood - Skin Skin Exam: Dry, Intact Assessment and Plan - Assessment and Plan (Free Text) Assessment: 67M with hostile abdomen and GI bleed F/U GI Continue care by primary team Transfuse as necessary D/W Dr. Rhoda Durbin PGY3
--- NOTE | 2018-07-23 11:09 | CT ---
Date of service: 07/22/2018 PROCEDURE: CT Abdomen and Pelvis with contrast HISTORY: abd pain COMPARISON: Comparison is made to the previous study dated 06/03/2018 TECHNIQUE: Contrast dose: 100 mL of Visipaque 320 intravenously. Axial and reformatted coronal and sagittal CT images of the abdomen and pelvis were obtained after IV contrast administration. Radiation dose: Total exam DLP = 439.33 mGy-cm. This CT exam was performed using one or more of the following dose reduction techniques: Automated exposure control, adjustment of the mA and/or kV according to patient size, and/or use of iterative reconstruction technique. FINDINGS: LOWER THORAX: Unremarkable. LIVER: Unremarkable. No gross lesion or ductal dilatation. GALLBLADDER AND BILE DUCTS: The gallbladder is not distended demonstrate mild diffuse wall thickening. No definite CT evidence of acute cholecystitis. The common bile duct is dilated measures up to 10 millimeter again noted. PANCREAS: The main pancreatic duct is mildly dilated. No definite CT evidence of acute pancreatitis. SPLEEN: Unremarkable. ADRENALS: Unremarkable. No mass. KIDNEYS AND URETERS: The kidneys enhance symmetrically. Again noted are low-attenuation cystic lesions in both kidneys. No evidence of hydronephrosis or hydroureter. VASCULATURE: Unremarkable. No aortic aneurysm. No aortic atherosclerotic calcification or mural plaque present. BOWEL: The patient is status post gastric bypass surgery. There is diffuse gastric wall thickening. There are mildly to moderately dilated small bowel loops demonstrate diffuse wall thickening noted in the left upper abdomen. No evidence of high-grade bowel obstruction. Mild constipation is noted. APPENDIX: No evidence of appendicitis. PERITONEUM: Unremarkable. No free fluid. No free air. LYMPH NODES: Unremarkable. No enlarged lymph nodes. BLADDER: Ulii-hv-xoeulfot diffuse urinary bladder wall thickening is again noted. REPRODUCTIVE: The prostate and seminal vesicles are enlarged. BONES: No acute fracture. OTHER FINDINGS: None. IMPRESSION: Diffuse gastric and small bowel wall thickening in the left upper abdomen suspicious for gastroenteritis. Contracted gallbladder demonstrate diffuse wall thickening without definite CT evidence of acute cholecystitis. Otherwise no significant interval changes. Preliminary report was submitted by [facility] Radiology contains concordant findings.
[2018-07-23] MEDS ORDERED: Phenylephrine 10 mg/ml Inj ONE (11:24)
[2018-07-23] MEDS ORDERED: Etomidate 20 mg/10ml Inj IV ONE (11:24)
[2018-07-23] MEDS ORDERED: Sodium Chloride 0.9% 500 ML IV ONE (11:37)
--- NOTE | 2018-07-23 12:29 | CP.PCM.CON ---
History of Present Illness - History of Present Illness History of Present Illness: 67 yo male, homeless, hx of gastro-colic fistula, severe obstructing PUD with gastric/duodenal ulcers noted in 06/2017 s/p possible gastrojejunostomy, HTN, DM, presenting for abd pain. He has been seen in the ED multiple times recently without acute findings. However, he returned in the PM of 07/22 with persistent L sided abd/flank pain, described as sharp, non-radiating without any clear precipitating or alleviating factors. He reports some associated NB/NB emesis. Of note, he states that he has not been compliant with PPI therapy as described. He states that he occasionally has some loose stools with BRBPR but that early this AM of 07/23, he had more bright red blood with black mixed in. Hgb this AM was down to 5.7 from 10.1 the previous night. Repeat cbc reveals low Hb/hct, currently PRBC transfusion + PPI gtt, NPO Last E[place] was at [facility] [place] which found several ulcers at suspected anastamotic site. Last CSPY 07/12 with congested mucosa throughout (Bx mild inflammation) 12 point ROS negative other than stated above PMHx: As above PSHx: Gastrojejunostomy Meds: Reviewed in chart FHx: Denied GI Problems Social: Denies tobacco, EtOH or illicit drug use All: NKDA Review of Systems - Constitutional Constitutional: As Per HPI Past Patient History - Infectious Disease Hx of Infectious Diseases: None - Tetanus Immunizations Tetanus Immunization: Unknown - Past Medical History & Family History Past Medical History?: Yes - Past Social History Smoking Status: Never Smoked - CARDIAC Hx Hypertension: Yes - PULMONARY Hx Respiratory Disorders: No - NEUROLOGICAL Hx Neurological Disorder: No - HEENT Hx HEENT Problems: No - RENAL Hx Chronic Kidney Disease: No - ENDOCRINE/METABOLIC Hx Endocrine Disorders: No Hx Diabetes Mellitus Type 2: Yes - HEMATOLOGICAL/ONCOLOGICAL Hx Blood Disorders: No - INTEGUMENTARY Other/Comment: thick hard toenails, dry leathery discolored skin ble, 1cm round dry scab to left knee, foul smelling body odor, healed surgical scar abd - MUSCULOSKELETAL/RHEUMATOLOGICAL Hx Musculoskeletal Disorders: Yes Hx Falls: No Hx Unsteady Gait: Yes - GASTROINTESTINAL Hx Gastrointestinal Disorders: Yes (colitis) - GENITOURINARY/GYNECOLOGICAL Hx Genitourinary Disorders: No - PSYCHIATRIC Hx Substance Use: No (patient denies) - SURGICAL HISTORY Hx Surgeries: Yes (abdominal surgery) Hx Herniorrhaphy: Yes Other/Comment: "I've had surgery on my kidneys and colon. I don't know why." kidney biopsy? - ANESTHESIA Hx Anesthesia: Yes Hx Anesthesia Reactions: No Hx Malignant Hyperthermia: No Meds Allergies/Adverse Reactions: Allergies Allergy/AdvReac Type Severity Reaction Status Date / Time No Known Allergies Allergy Verified 07/22/18 17:18 - Medications Medications: Current Medications Sodium Chloride (Sodium Chloride 0.9%) 1,000 mls @ 100 mls/hr IV .Q10H [facility] Last Admin: 07/23/18 07:40 Dose: 100 mls/hr Pantoprazole Sodium 80 mg/ (Sodium Chloride) 100 mls @ 10 mls/hr IVPB .Q10H [facility] Pneumococcal Polyvalent Vaccine (Pneumovax 23 Vaccine) 0.5 ml IM .ONCE ONE Stop: 07/24/18 10:01 Physical Exam - Eye Exam Eye Exam: EOMI - ENT Exam ENT Exam: Mucous Membranes Moist - Cardiovascular Exam Cardiovascular Exam: REGULAR RHYTHM, +S1, +S2 - GI/Abdominal Exam GI & Abdominal Exam: Normal Bowel Sounds, Soft - Extremities Exam Extremities exam: Positive for: normal inspection - Neurological Exam Neurological exam: Alert, Oriented x3 Results - Vital Signs Recent Vital Signs: Last Vital Signs Temp 99.6 F 07/23/18 11:38 Pulse 91 H 07/23/18 11:38 Resp 12 07/23/18 11:38 BP 162/93 H 07/23/18 11:38 Pulse Ox 100 07/23/18 11:38 - Labs Result Diagrams: 07/23/18 08:02 07/23/18 06:56 Labs: Laboratory Results - last 24 hr 07/22/18 07/22/18 07/22/18 18:08 18:08 21:06 WBC 5.8 D RBC 4.10 L Hgb 10.1 L Hct 32.2 L MCV 78.6 L D MCH 24.5 L MCHC 31.2 L RDW 19.2 H Plt Count 308 MPV 7.9 Neut % (Auto) 76.9 H Lymph % (Auto) 15.7 L [place] % (Auto) 5.4 Eos % (Auto) 1.8 Baso % (Auto) 0.2 Neut # (Auto) 4.4 Lymph # (Auto) 0.9 L [place] # (Auto) 0.3 Eos # (Auto) 0.1 Baso # (Auto) 0.0 Sodium 136 Potassium 4.4 Chloride 102 Carbon Dioxide 26 Anion Gap 13 BUN 19 Creatinine 1.0 Est GFR ( Amer) > 60 Est GFR (Non-Af Amer) > 60 Random Glucose 86 Calcium 8.8 Total Bilirubin 0.3 AST 22 ALT 8 L D Alkaline Phosphatase 81 Troponin I < 0.0120 NT-Pro-B Natriuret Pep 568 Total Protein 7.3 Albumin 4.3 Globulin 3.0 Albumin/Globulin Ratio 1.4 Lipase 184 Urine Color Yellow Urine Clarity Clear Urine pH 5.0 Ur Specific [place] > 1.060 H Urine Protein 1+ H Urine Glucose (UA) Normal Urine Ketones Negative Urine Blood Negative Urine Nitrate Negative Urine Bilirubin Negative Urine Urobilinogen Normal Ur Leukocyte Esterase Neg Urine WBC (Auto) 1 Urine RBC (Auto) 1 Ur Squamous Epith Cells < 1 Blood Type Antibody Screen 07/23/18 07/23/18 07/23/18 06:56 06:56 07:42 WBC 3.5 L RBC 2.28 L Hgb 5.7 L* D Hct 17.7 L MCV 78.0 L MCH 25.1 L MCHC 32.2 L RDW 18.8 H Plt Count 208 D MPV 8.6 Neut % (Auto) 54.5 Lymph % (Auto) 38.2 [place] % (Auto) 4.8 Eos % (Auto) 1.9 Baso % (Auto) 0.6 Neut # (Auto) 1.9 Lymph # (Auto) 1.3 [place] # (Auto) 0.2 Eos # (Auto) 0.1 Baso # (Auto) 0.0 Sodium 136 Potassium 4.1 Chloride 109 H Carbon Dioxide 21 L Anion Gap 9 L BUN 27 H Creatinine 1.0 Est GFR ( Amer) > 60 Est GFR (Non-Af Amer) > 60 Random Glucose 82 Calcium 7.4 L Total Bilirubin 0.2 AST 12 L D ALT 18 L D Alkaline Phosphatase 58 Troponin I NT-Pro-B Natriuret Pep Total Protein 4.8 L Albumin 2.5 L D Globulin 2.3 Albumin/Globulin Ratio 1.1 Lipase Urine Color Urine Clarity Urine pH Ur Specific [place] Urine Protein Urine Glucose (UA) Urine Ketones Urine Blood Urine Nitrate Urine Bilirubin Urine Urobilinogen Ur Leukocyte Esterase Urine WBC (Auto) Urine RBC (Auto) Ur Squamous Epith Cells Blood Type O POSITIVE Antibody Screen Negative 07/23/18 08:02 WBC 3.6 L RBC 2.21 L Hgb 5.6 L* Hct 17.3 L MCV 78.5 L MCH 25.4 L MCHC 32.4 L RDW 18.7 H Plt Count 202 MPV 8.8 Neut % (Auto) 56.8 Lymph % (Auto) 35.0 [place] % (Auto) 5.9 Eos % (Auto) 1.6 Baso % (Auto) 0.7 Neut # (Auto) 2.1 Lymph # (Auto) 1.3 [place] # (Auto) 0.2 Eos # (Auto) 0.1 Baso # (Auto) 0.0 Sodium Potassium Chloride Carbon Dioxide Anion Gap BUN Creatinine Est GFR ( Amer) Est GFR (Non-Af Amer) Random Glucose Calcium Total Bilirubin AST ALT Alkaline Phosphatase Troponin I NT-Pro-B Natriuret Pep Total Protein Albumin Globulin Albumin/Globulin Ratio Lipase Urine Color Urine Clarity Urine pH Ur Specific [place] Urine Protein Urine Glucose (UA) Urine Ketones Urine Blood Urine Nitrate Urine Bilirubin Urine Urobilinogen Ur Leukocyte Esterase Urine WBC (Auto) Urine RBC (Auto) Ur Squamous Epith Cells Blood Type Antibody Screen Assessment & Plan - Assessment and Plan (Free Text) Assessment: Acute blood loss anemia: tranfuse to keep hb/hct >8/24 -EGD by Gi -NPO -IV PPI -IVF -continue to monitor in ICU. avoid NSAID, avoid antiplatelet and anticoagulants -2 large bore IV access - Date & Time Date: 07/23/18 Time: 12:29
[2018-07-23] MEDS: Pantoprazole 80 MG in Sodium Chloride 0.9% 100 ML IVPB SCH ×2 (12:50→21:54)
[2018-07-23] MEDS ORDERED: Permethrin 1% Kit 59 ML BOTTLE TOP ONE (14:08)
--- NOTE | 2018-07-23 18:30 | CARD ---
APPROVED REPORT Date of service: 07/22/2018 EKG Measurement Heart [id number] <Conclusion> Normal sinus rhythm Septal infarct, age undetermined Abnormal ECG
[2018-07-23 19:00] LABS: BASO % 0.7 % (0.0-2.0); EOS # 0.1 K/uL (0.0-0.7); EOS % 2.1 % (0.0-4.0); HEMOGLOBIN 7.5 g/dL (12.0-18.0); LYMPH # 1.3 K/uL (1.0-4.3); LYMPH % 19.4 % (20.0-40.0); MEAN CELL VOLUME 79.9 fL (80.0-94.0); MEAN CORPUSCULAR HEMOGLOBIN 26.1 pg (27.0-31.0); MEAN CORPUSCULAR HGB CONC 32.6 g/dL (33.0-37.0); MEAN PLATELET VOLUME 8.3 fL (7.2-11.7); MONO # 0.4 K/uL (0.0-0.8); MONO % 5.8 % (0.0-10.0); NEUT # 4.8 K/uL (1.8-7.0); NRBC % 0.1 % (0.0-2.0); RBC 2.89 Mil/uL (4.40-5.90); RED CELL DISTRIBUTION WIDTH 17.4 % (11.5-14.5); WHITE BLOOD COUNT 6.7 K/uL (4.8-10.8)
--- NOTE | 2018-07-23 21:37 | CP.PCM.HP ---
Past Patient History - Infectious Disease Hx of Infectious Diseases: None - Tetanus Immunizations Tetanus Immunization: Unknown - Past Medical History & Family History Past Medical History?: Yes - Past Social History Smoking Status: Never Smoked - CARDIAC Hx Hypertension: Yes - PULMONARY Hx Respiratory Disorders: No - NEUROLOGICAL Hx Neurological Disorder: No - HEENT Hx HEENT Problems: No - RENAL Hx Chronic Kidney Disease: No - ENDOCRINE/METABOLIC Hx Endocrine Disorders: No Hx Diabetes Mellitus Type 2: Yes - HEMATOLOGICAL/ONCOLOGICAL Hx Blood Disorders: No - INTEGUMENTARY Other/Comment: thick hard toenails, dry leathery discolored skin ble, 1cm round dry scab to left knee, foul smelling body odor, healed surgical scar abd - MUSCULOSKELETAL/RHEUMATOLOGICAL Hx Musculoskeletal Disorders: Yes Hx Falls: No Hx Unsteady Gait: Yes - GASTROINTESTINAL Hx Gastrointestinal Disorders: Yes (colitis) - GENITOURINARY/GYNECOLOGICAL Hx Genitourinary Disorders: No - PSYCHIATRIC Hx Substance Use: No (patient denies) - SURGICAL HISTORY Hx Surgeries: Yes (abdominal surgery) Hx Herniorrhaphy: Yes Other/Comment: "I've had surgery on my kidneys and colon. I don't know why." kidney biopsy? - ANESTHESIA Hx Anesthesia: Yes Hx Anesthesia Reactions: No Hx Malignant Hyperthermia: No Meds Allergies/Adverse Reactions: Allergies Allergy/AdvReac Type Severity Reaction Status Date / Time No Known Allergies Allergy Verified 07/22/18 17:18 Physical Exam - Constitutional Appears: Well - Head Exam Head Exam: ATRAUMATIC, NORMAL INSPECTION, NORMOCEPHALIC - Eye Exam Eye Exam: EOMI, Normal appearance, PERRL Pupil Exam: NORMAL ACCOMODATION, PERRL - ENT Exam ENT Exam: Mucous Membranes Moist, Normal Exam - Neck Exam Neck exam: Positive for: Normal Inspection - Respiratory Exam Respiratory Exam: Decreased Breath Sounds - Cardiovascular Exam Cardiovascular Exam: REGULAR RHYTHM, +S1, +S2 - GI/Abdominal Exam GI & Abdominal Exam: Diminished Bowel Sounds, Soft - Rectal Exam Rectal Exam: Deferred Results - Vital Signs Recent Vital Signs: Last Vital Signs Temp 98.5 F 07/23/18 16:00 Pulse 94 H 07/23/18 21:00 Resp 17 07/23/18 21:00 BP 150/77 07/23/18 20:19 Pulse Ox 100 07/23/18 21:00 - Labs Result Diagrams: 07/23/18 18:52 07/23/18 06:56 Labs: Laboratory Results - last 24 hr 07/23/18 07/23/18 07/23/18 06:56 06:56 07:42 WBC 3.5 L RBC 2.28 L Hgb 5.7 L* D Hct 17.7 L MCV 78.0 L MCH 25.1 L MCHC 32.2 L RDW 18.8 H Plt Count 208 D MPV 8.6 Neut % (Auto) 54.5 Lymph % (Auto) 38.2 [place] % (Auto) 4.8 Eos % (Auto) 1.9 Baso % (Auto) 0.6 Neut # (Auto) 1.9 Lymph # (Auto) 1.3 [place] # (Auto) 0.2 Eos # (Auto) 0.1 Baso # (Auto) 0.0 Sodium 136 Potassium 4.1 Chloride 109 H Carbon Dioxide 21 L Anion Gap 9 L BUN 27 H Creatinine 1.0 Est GFR ( Amer) > 60 Est GFR (Non-Af Amer) > 60 Random Glucose 82 Calcium 7.4 L Total Bilirubin 0.2 AST 12 L D ALT 18 L D Alkaline Phosphatase 58 Total Protein 4.8 L Albumin 2.5 L D Globulin 2.3 Albumin/Globulin Ratio 1.1 Blood Type O POSITIVE Antibody Screen Negative 07/23/18 07/23/18 08:02 18:52 WBC 3.6 L 6.7 D RBC 2.21 L 2.89 L Hgb 5.6 L* 7.5 L Hct 17.3 L 23.1 L MCV 78.5 L 79.9 L MCH 25.4 L 26.1 L MCHC 32.4 L 32.6 L RDW 18.7 H 17.4 H Plt Count 202 200 MPV 8.8 8.3 Neut % (Auto) 56.8 72.0 Lymph % (Auto) 35.0 19.4 L [place] % (Auto) 5.9 5.8 Eos % (Auto) 1.6 2.1 Baso % (Auto) 0.7 0.7 Neut # (Auto) 2.1 4.8 Lymph # (Auto) 1.3 1.3 [place] # (Auto) 0.2 0.4 Eos # (Auto) 0.1 0.1 Baso # (Auto) 0.0 0.0 Sodium Potassium Chloride Carbon Dioxide Anion Gap BUN Creatinine Est GFR ( Amer) Est GFR (Non-Af Amer) Random Glucose Calcium Total Bilirubin AST ALT Alkaline Phosphatase Total Protein Albumin Globulin Albumin/Globulin Ratio Blood Type Antibody Screen
[2018-07-24] MEDS: Sodium Chloride 0.9% 1,000 ML IV SCH (00:45)
[2018-07-24] MEDS: Sucralfate 1 gm/10 ml Oral Susp UD PO SCH ×2 (01:00→15:30)
[2018-07-24 05:11] LABS: BASO % 0.8 % (0.0-2.0); EOS # 0.1 K/uL (0.0-0.7); HEMOGLOBIN 6.9 g/dL (12.0-18.0); LYMPH # 0.9 K/uL (1.0-4.3); LYMPH % 20.5 % (20.0-40.0); MEAN CELL VOLUME 81.9 fL (80.0-94.0); MEAN CORPUSCULAR HEMOGLOBIN 26.3 pg (27.0-31.0); MEAN CORPUSCULAR HGB CONC 32.1 g/dL (33.0-37.0); MEAN PLATELET VOLUME 8.9 fL (7.2-11.7); MONO # 0.2 K/uL (0.0-0.8); MONO % 5.3 % (0.0-10.0); NEUT # 3.2 K/uL (1.8-7.0); NEUT % 70.4 % (50.0-75.0); RBC 2.64 Mil/uL (4.40-5.90); RED CELL DISTRIBUTION WIDTH 17.4 % (11.5-14.5); WHITE BLOOD COUNT 4.5 K/uL (4.8-10.8)
[2018-07-24 05:42] LABS: ALB/GLOB RATIO 1.2 (1.0-2.1); ALBUMIN 2.7 g/dL (3.5-5.0); ALT/SGPT 18 U/L (21-72); AST/SGOT 20 U/L (17-59); BLOOD UREA NITROGEN 20 mg/dL (9-20); CALCIUM 7.9 mg/dl (8.6-10.4); GFR NON-AFRICAN AMERICAN > 60
--- NOTE | 2018-07-24 07:35 | CP.PCM.PN ---
Subjective - Date & Time of Evaluation Date of Evaluation: 07/24/18 Time of Evaluation: 07:00 - Subjective Subjective: Surgery Progress note. Dr. Duong Pt seen and examined at bedside. EGD yesterday with evidence of marginal ulcer with clot at Bilroth II anastamosis site noted. Received 3U PRBCs with not an appropriate response in Hb rise. Hb 6.9 this morning. Denies any more episodes of melanotic or bloody stools. Does report abdominal pain. Objective - Vital Signs/Intake and Output Vital Signs (last 24 hours): Temp Pulse Resp BP Pulse Ox 97.8 F 73 15 140/68 99 07/24/18 04:00 07/24/18 06:00 07/24/18 06:00 07/24/18 05:19 07/24/18 06:00 Intake and Output: 07/24/18 07/24/18 06:59 18:59 Intake Total 1320 Output Total 450 Balance 870 - Medications Medications: Current Medications Sodium Chloride (Sodium Chloride 0.9%) 1,000 mls @ 100 mls/hr IV .Q10H [facility] Last Admin: 07/24/18 00:45 Dose: 100 mls/hr Pantoprazole Sodium 80 mg/ (Sodium Chloride) 100 mls @ 10 mls/hr IVPB .Q10H [facility] Last Admin: 07/23/18 21:54 Dose: 10 mls/hr Pneumococcal Polyvalent Vaccine (Pneumovax 23 Vaccine) 0.5 ml IM .ONCE ONE Stop: 07/24/18 10:01 - Labs Labs: 07/24/18 05:08 07/24/18 05:08 - Constitutional Appears: Non-toxic, No Acute Distress - Head Exam Head Exam: ATRAUMATIC, NORMAL INSPECTION, NORMOCEPHALIC - Eye Exam Eye Exam: EOMI, Normal appearance - ENT Exam ENT Exam: Mucous Membranes Moist - Respiratory Exam Respiratory Exam: NORMAL BREATHING PATTERN. absent: Accessory Muscle Use, Respiratory Distress - Cardiovascular Exam Cardiovascular Exam: absent: JVD - GI/Abdominal Exam GI & Abdominal Exam: Guarding. absent: Distended, Rigid, Rebound Additional comments: tenderness to palpation mid abd to diffuse. Voluntary guarding. No rebound - Extremities Exam Extremities Exam: Normal Inspection. absent: Calf Tenderness - Neurological Exam Neurological Exam: Alert, Awake, Oriented x3 - Psychiatric Exam Psychiatric exam: Normal Affect, Normal Mood - Skin Skin Exam: Dry, Intact, Normal Color, Warm Assessment and Plan - Assessment and Plan (Free Text) Assessment: 67yo M with GIB - EGD with evidence of ulcer at bilroth II anastamosis site. Plan: - Will continue to monitor - monitor h/h and transfuse as needed - f/u GI recs - pain management - continue PPI Further recs as per Dr. Rhoda Rojas PGY2 surgery
--- NOTE | 2018-07-24 08:03 | CP.PCM.PN ---
Subjective - Date & Time of Evaluation Date of Evaluation: 07/24/18 Time of Evaluation: 08:02 - Subjective Subjective: NO acute events overnight Objective - Vital Signs/Intake and Output Vital Signs (last 24 hours): Temp Pulse Resp BP Pulse Ox 97.8 F 73 15 140/68 99 07/24/18 04:00 07/24/18 06:00 07/24/18 06:00 07/24/18 05:19 07/24/18 06:00 Intake and Output: 07/24/18 07/24/18 06:59 18:59 Intake Total 1320 Output Total 450 Balance 870 - Medications Medications: Current Medications Sodium Chloride (Sodium Chloride 0.9%) 1,000 mls @ 100 mls/hr IV .Q10H [facility] Last Admin: 07/24/18 00:45 Dose: 100 mls/hr Pantoprazole Sodium 80 mg/ (Sodium Chloride) 100 mls @ 10 mls/hr IVPB .Q10H [facility] Last Admin: 07/23/18 21:54 Dose: 10 mls/hr Pneumococcal Polyvalent Vaccine (Pneumovax 23 Vaccine) 0.5 ml IM .ONCE ONE Stop: 07/24/18 10:01 - Labs Labs: 07/24/18 05:08 07/24/18 05:08 - Head Exam Head Exam: ATRAUMATIC, NORMAL INSPECTION, NORMOCEPHALIC - Respiratory Exam Respiratory Exam: Clear to Ausculation Bilateral, NORMAL BREATHING PATTERN - Cardiovascular Exam Cardiovascular Exam: REGULAR RHYTHM, +S1, +S2 - GI/Abdominal Exam GI & Abdominal Exam: Soft, Tenderness, Normal Bowel Sounds - Extremities Exam Extremities Exam: Full ROM, Normal Capillary Refill - Neurological Exam Neurological Exam: Alert, Awake, Oriented x3 Assessment and Plan - Assessment and Plan (Free Text) Assessment: Acute blood loss anemia: s/p EGD, ulcer, bleeding at anastomosis site: continue PPI, transfuse PRBC to keep hemodynamic stability -lice: continue rx and prevention -Patient remains hemodynamically. -since hb/hct did not increase appropriately, suspect continuous bleeding, obtain CT angio to identify the offending artery. -continue NPO
[2018-07-24] MEDS: Pantoprazole 80 MG in Sodium Chloride 0.9% 100 ML IVPB SCH ×2 (08:08→17:40)
[2018-07-24] MEDS ORDERED: Iodixanol 320 MG/ML 100 ML BOTTLE IV ONE (08:49)
--- NOTE | 2018-07-24 09:53 | CT ---
Date of service: 07/24/2018 PROCEDURE: CT Angiography Abdomen and pelvis HISTORY: identify bleeding artery/vein stom ? IR COMPARISON: None. TECHNIQUE: Technique: CT angiography of the abdomen and pelvis was performed in the arterial phase of enhancement. Coronal and sagittal reformats generated at the workstation. Intravenous contrast dose: 100 mL Visipaque 320 Radiation dose: Total exam DLP = 371.86 mGy-cm. This CT exam was performed using one or more of the following dose reduction techniques: Automated exposure control, adjustment of the mA and/or kV according to patient size, and/or use of iterative reconstruction technique. FINDINGS: LOWER THORAX: Unremarkable. LIVER: Unremarkable. No gross lesion or ductal dilatation. GALLBLADDER AND BILE DUCTS: Vicariously excreted intravenous contrast distending the gallbladder. PANCREAS: Unremarkable. No gross lesion or ductal dilatation. SPLEEN: Unremarkable. ADRENALS: Unremarkable. No mass. KIDNEYS AND URETERS: Stable 2.9 cm right lower pole cyst. Stable 3.2 cm left interpolar cyst. No hydronephrosis. No solid mass. STOMACH AND BOWEL: Multiple prior bowel surgeries. Small amount high-density intermittently layering within portions of the colon on the left as well as within the sigmoid. APPENDIX: No findings to suggest acute appendicitis. PERITONEUM: Unremarkable. No free fluid. No free air. LYMPH NODES: Unremarkable. No enlarged lymph nodes. BLADDER: Unremarkable. REPRODUCTIVE: Unremarkable. BONES: No acute fracture. OTHER FINDINGS: No discrete bleeding vessel identified. Aortic atherosclerotic calcifications. IMPRESSION: No discrete bleeding vessel identified. Small amount high density intermittently layering within portions of the left colon as well as within the sigmoid. This is nonspecific and could be related to ingested material versus extravasated intravenous contrast. No other significant interval change.
[2018-07-24] MEDS ORDERED: Influenza Vaccine 22.5 mcg/0.25 ml Syr (6 - 35 months) IM ONE (10:00)
[2018-07-24] MEDS ORDERED: Pneumococcal 23-Valent Vaccine IM ONE (10:00)
[2018-07-24] MEDS ORDERED: Metoprolol 1 mg/ml Inj IVP PRN (12:00)
[2018-07-24] MEDS ORDERED: HYDROmorphone 0.5 mg/0.5 ml ISec IVP ONE (12:15)
--- NOTE | 2018-07-24 14:04 | CP.PCM.PN ---
<Ty Grossman - Last Filed: 07/24/18 14:01> Subjective - Date & Time of Evaluation Date of Evaluation: 07/24/18 Time of Evaluation: 08:50 - Subjective Subjective: PGY-4 GI Fellow Prog Note Pt lying in bed when seen this AM. States his chronic abd pain is unchanged. Reports no BM since his hematochezia in the AM of 07/23. 5 point ROS negative other than stated above Objective - Vital Signs/Intake and Output Vital Signs (last 24 hours): Temp Pulse Resp BP Pulse Ox 98.2 F 69 12 153/82 H 100 07/24/18 13:45 07/24/18 13:46 07/24/18 13:46 07/24/18 13:46 07/24/18 13:46 Intake and Output: 07/24/18 07/24/18 06:59 18:59 Intake Total 1320 1025 Output Total 450 1550 Balance 870 -525 - Medications Medications: Current Medications Amlodipine Besylate (Norvasc) 5 mg PO DAILY [facility] Last Admin: 07/24/18 12:17 Dose: 5 mg Hydralazine HCl (Apresoline) 10 mg PO QID [facility] Pantoprazole Sodium 80 mg/ (Sodium Chloride) 100 mls @ 10 mls/hr IVPB .Q10H [facility] Last Admin: 07/24/18 08:08 Dose: 10 mls/hr Metoprolol Tartrate (Lopressor) 5 mg IVP Q6H PRN PRN Reason: Other - Labs Labs: 07/24/18 05:08 07/24/18 05:08 - Constitutional Appears: No Acute Distress, Chronically Ill - Head Exam Head Exam: ATRAUMATIC, NORMAL INSPECTION - Eye Exam Eye Exam: EOMI. absent: Scleral icterus - ENT Exam ENT Exam: Mucous Membranes Dry. absent: Mucous Membranes Moist - Respiratory Exam Respiratory Exam: absent: Accessory Muscle Use, Respiratory Distress - GI/Abdominal Exam GI & Abdominal Exam: Firm, Tenderness, Normal Bowel Sounds. 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 # Abd Pain, Hematochezia, Acute Blood Loss Anemia: Due to UGIB related to known PUD also at risk for anastamotic bleed. FC2b ulcer seen at anastamosis s/p clot removal with epi injection and electrocautery with hemostasis. # H/o obstructing PUD with gastric/duodenal ulcers # S/p Gastrojejunostomy Plan: - PPI gtt x 72 hrs, complete in AM of 07/26 - NPO for now - Will consider clear liq diet tomorrow if no further signs of bleeding - Transfuse PRBCs, monitor response, goal at least 7 --- Hgb down some this AM, but no signs of active bleed - 2 large bore IV access - Gen Surg consulted - Carafate liq QID Pt discussed with Dr. Tavarez (to examine later); please see attestation for further recs/changes. Ty Grossman, PGY-4 <Anup Tavarez - Last Filed: 07/24/18 22:51> Objective - Vital Signs/Intake and Output Vital Signs (last 24 hours): Temp Pulse Resp BP Pulse Ox 98.5 F 70 14 162/96 H 98 07/24/18 15:35 07/24/18 22:00 07/24/18 22:00 07/24/18 21:56 07/24/18 22:00 Intake and Output: 07/24/18 07/25/18 18:59 06:59 Intake Total 1995 10 Output Total 3330 250 Balance -1335 -240 - Medications Medications: Current Medications Amlodipine Besylate (Norvasc) 5 mg PO DAILY [facility] Last Admin: 07/24/18 12:00 Dose: 5 mg Hydralazine HCl (Apresoline) 10 mg PO QID [facility] Last Admin: 07/24/18 18:40 Dose: 10 mg Pantoprazole Sodium 80 mg/ (Sodium Chloride) 100 mls @ 10 mls/hr IVPB .Q10H [facility] Last Admin: 07/24/18 17:40 Dose: 10 mls/hr Metoprolol Tartrate (Lopressor) 5 mg IVP Q6H PRN PRN Reason: Other Sucralfate (Carafate Oral Susp) 1 gm PO QID [facility] Last Admin: 07/24/18 15:30 Dose: 1 gm - Labs Labs: 07/24/18 05:08 07/24/18 05:08 Attending/Attestation - Attestation I have personally seen and examined this patient.: Yes I have fully participated in the care of the patient.: Yes I have reviewed all pertinent clinical information, including history, physical exam and plan: Yes Notes (Text): 07/24/18 22:51 The patient was seen and examined earlier today. Chart reviewed. Findings and management, as documented above, were discussed with Dr. Grossman.
[2018-07-24] MEDS ORDERED: Permethrin 5% Cream(60 gm) TOP ONE (15:45)
[2018-07-24] MEDS ORDERED: Permethrin 1% Kit 59 ML BOTTLE TOP ONE (15:45)
--- NOTE | 2018-07-24 22:25 | CP.PCM.PN ---
Subjective - Date & Time of Evaluation Date of Evaluation: 07/24/18 Time of Evaluation: 10:30 - Subjective Subjective: clinically same Objective - Vital Signs/Intake and Output Vital Signs (last 24 hours): Temp Pulse Resp BP Pulse Ox 98.5 F 66 15 114/74 100 07/24/18 15:35 07/24/18 19:00 07/24/18 19:00 07/24/18 18:57 07/24/18 19:00 Intake and Output: 07/24/18 07/25/18 18:59 06:59 Intake Total 1994 10 Output Total 3329 250 Balance -1335 -240 - Medications Medications: Current Medications Amlodipine Besylate (Norvasc) 5 mg PO DAILY [facility] Last Admin: 07/24/18 12:00 Dose: 5 mg Hydralazine HCl (Apresoline) 10 mg PO QID [facility] Last Admin: 07/24/18 18:40 Dose: 10 mg Pantoprazole Sodium 80 mg/ (Sodium Chloride) 100 mls @ 10 mls/hr IVPB .Q10H [facility] Last Admin: 07/24/18 17:40 Dose: 10 mls/hr Metoprolol Tartrate (Lopressor) 5 mg IVP Q6H PRN PRN Reason: Other Sucralfate (Carafate Oral Susp) 1 gm PO QID [facility] Last Admin: 07/24/18 15:30 Dose: 1 gm - Labs Labs: 07/24/18 05:08 07/24/18 05:08
[2018-07-24 23:38] LABS: BASO # 0.1 K/uL (0.0-0.2); BASO % 0.9 % (0.0-2.0); EOS # 0.3 K/uL (0.0-0.7); LYMPH # 0.9 K/uL (1.0-4.3); LYMPH % 16.8 % (20.0-40.0); MEAN CORPUSCULAR HGB CONC 33.7 g/dL (33.0-37.0); MEAN PLATELET VOLUME 8.5 fL (7.2-11.7); MONO # 0.3 K/uL (0.0-0.8); MONO % 5.5 % (0.0-10.0); NEUT % 71.8 % (50.0-75.0); NRBC % 0.1 % (0.0-2.0); RBC 3.61 Mil/uL (4.40-5.90); RED CELL DISTRIBUTION WIDTH 16.8 % (11.5-14.5); WHITE BLOOD COUNT 5.6 K/uL (4.8-10.8)
[2018-07-24 23:42] LABS: HEMOGLOBIN 9.7 g/dL (12.0-18.0)
[2018-07-25] MEDS: Pantoprazole 80 MG in Sodium Chloride 0.9% 100 ML IVPB SCH (02:55)
[2018-07-25 06:43] LABS: BASO % 0.5 % (0.0-2.0); EOS # 0.3 K/uL (0.0-0.7); EOS % 5.8 % (0.0-4.0); LYMPH # 0.6 K/uL (1.0-4.3); LYMPH % 12.3 % (20.0-40.0); MEAN CELL VOLUME 81.4 fL (80.0-94.0); MEAN CORPUSCULAR HGB CONC 33.1 g/dL (33.0-37.0); MEAN PLATELET VOLUME 8.4 fL (7.2-11.7); MONO # 0.3 K/uL (0.0-0.8); MONO % 4.9 % (0.0-10.0); NEUT % 76.5 % (50.0-75.0); NRBC % 0.1 % (0.0-2.0); RBC 3.71 Mil/uL (4.40-5.90); WHITE BLOOD COUNT 5.3 K/uL (4.8-10.8)
[2018-07-25 06:56] LABS: ALB/GLOB RATIO 1.2 (1.0-2.1); ALBUMIN 3.2 g/dL (3.5-5.0); ALT/SGPT 20 U/L (21-72); AST/SGOT 20 U/L (17-59); BLOOD UREA NITROGEN 17 mg/dL (9-20); CALCIUM 8.4 mg/dl (8.6-10.4); GFR NON-AFRICAN AMERICAN > 60
--- NOTE | 2018-07-25 08:14 | CP.PCM.PN ---
Subjective - Date & Time of Evaluation Date of Evaluation: 07/25/18 Time of Evaluation: 07:10 - Subjective Subjective: General Surgery Pt seen and examined. No new bloody BMs per nursing staff. Got 2 U PRBCs with good response. Objective - Vital Signs/Intake and Output Vital Signs (last 24 hours): Temp Pulse Resp BP Pulse Ox 98.4 F 61 15 153/86 H 100 07/25/18 04:00 07/25/18 07:00 07/25/18 07:00 07/25/18 06:56 07/25/18 07:00 Intake and Output: 07/25/18 07/25/18 06:59 18:59 Intake Total 240 Output Total 1350 Balance -1110 - Medications Medications: Current Medications Amlodipine Besylate (Norvasc) 5 mg PO DAILY [facility] Last Admin: 07/24/18 12:00 Dose: 5 mg Hydralazine HCl (Apresoline) 10 mg PO QID [facility] Last Admin: 07/24/18 22:54 Dose: 10 mg Pantoprazole Sodium 80 mg/ (Sodium Chloride) 100 mls @ 10 mls/hr IVPB .Q10H [facility] Last Admin: 07/25/18 02:55 Dose: 10 mls/hr Metoprolol Tartrate (Lopressor) 5 mg IVP Q6H PRN PRN Reason: Other Sucralfate (Carafate Oral Susp) 1 gm PO QID [facility] Last Admin: 07/24/18 15:30 Dose: 1 gm - Labs Labs: 07/25/18 06:37 07/25/18 06:37 - Constitutional Appears: Non-toxic, No Acute Distress - Head Exam Head Exam: ATRAUMATIC, NORMOCEPHALIC - Eye Exam Eye Exam: EOMI. absent: Scleral icterus - Respiratory Exam Respiratory Exam: NORMAL BREATHING PATTERN. absent: Accessory Muscle Use, Respiratory Distress - Cardiovascular Exam Cardiovascular Exam: RRR. absent: Bradycardia, Tachycardia - GI/Abdominal Exam GI & Abdominal Exam: Soft. absent: Distended, Firm, Guarding, Rigid, Tenderness - Neurological Exam Neurological Exam: Alert - Skin Skin Exam: Dry, Warm Assessment and Plan - Assessment and Plan (Free Text) Assessment: 67M with GI bleed Plan: - monitor h/h, currently appears stable - Management per GI - pain management D/W Dr. Rhoda Lisa PGY4
[2018-07-25] MEDS ORDERED: HYDROmorphone 0.5 mg/0.5 ml ISec IVP STA (08:24)
[2018-07-25] MEDS ORDERED: Potassium Chloride 20 mEq/15 ml LIQ UD PO ONE (09:30)
[2018-07-25] MEDS: Sucralfate 1 gm/10 ml Oral Susp UD PO SCH ×4 (09:47→21:13)
[2018-07-25] MEDS: Pantoprazole 80 MG in Sodium Chloride 0.9% 100 ML IVP SCH ×3 (09:55→19:30)
--- NOTE | 2018-07-25 10:23 | CP.PCM.PN ---
Subjective - Date & Time of Evaluation Date of Evaluation: 07/25/18 Time of Evaluation: 10:22 - Subjective Subjective: Patient remains hemodynamically stable. not on pressors, hb stable Objective - Vital Signs/Intake and Output Vital Signs (last 24 hours): Temp Pulse Resp BP Pulse Ox 98.4 F 72 13 154/90 H 99 07/25/18 08:00 07/25/18 10:00 07/25/18 10:00 07/25/18 08:56 07/25/18 10:00 Intake and Output: 07/25/18 07/25/18 06:59 18:59 Intake Total 240 165 Output Total 1350 Balance -1110 165 - Medications Medications: Current Medications Amlodipine Besylate (Norvasc) 5 mg PO DAILY [facility] Last Admin: 07/25/18 09:47 Dose: 5 mg Hydralazine HCl (Apresoline) 10 mg PO QID [facility] Last Admin: 07/25/18 09:47 Dose: 10 mg Pantoprazole Sodium 80 mg/ (Sodium Chloride) 100 mls @ 10 mls/hr IVP .Q10H [facility] Last Admin: 07/25/18 09:55 Dose: Not Given Metoprolol Tartrate (Lopressor) 5 mg IVP Q6H PRN PRN Reason: Other Sucralfate (Carafate Oral Susp) 1 gm PO QID [facility] Last Admin: 07/25/18 09:47 Dose: 1 gm - Labs Labs: 07/25/18 06:37 07/25/18 06:37 - Head Exam Head Exam: ATRAUMATIC, NORMAL INSPECTION - Neck Exam Neck Exam: Full ROM - Respiratory Exam Respiratory Exam: NORMAL BREATHING PATTERN - Cardiovascular Exam Cardiovascular Exam: +S1, +S2 - GI/Abdominal Exam GI & Abdominal Exam: Normal Bowel Sounds - Neurological Exam Neurological Exam: Alert, Awake, Oriented x3 Assessment and Plan - Assessment and Plan (Free Text) Assessment: Acute blood loss anemia: s/p EGD, ulcer, bleeding at anastomosis site: continue PPI, transfuse PRBC to keep hemodynamic stability -lice: continue rx and prevention -Patient remains hemodynamically. -start clera liquids -protonix q12 OOB to chair
--- NOTE | 2018-07-25 12:58 | CP.PCM.PN ---
<Ty Grossman - Last Filed: 07/25/18 12:55> Subjective - Date & Time of Evaluation Date of Evaluation: 07/25/18 Time of Evaluation: 08:20 - Subjective Subjective: PGY-4 GI Fellow Prog Note Pt lying in bed when seen this AM. States he is doing OK, with some chronic abd pain. No BM since Thursday AM. Hgb stable post-transfusions. Eager to eat. 5 point ROS negative other than stated above Objective - Vital Signs/Intake and Output Vital Signs (last 24 hours): Temp Pulse Resp BP Pulse Ox 98.4 F 70 14 150/77 98 07/25/18 08:00 07/25/18 11:00 07/25/18 11:00 07/25/18 10:20 07/25/18 10:20 Intake and Output: 07/25/18 07/25/18 06:59 18:59 Intake Total 240 425 Output Total 1350 201 Balance -1110 224 - Medications Medications: Current Medications Amlodipine Besylate (Norvasc) 5 mg PO DAILY [facility] Last Admin: 07/25/18 09:47 Dose: 5 mg Hydralazine HCl (Apresoline) 10 mg PO QID [facility] Last Admin: 07/25/18 09:47 Dose: 10 mg Pantoprazole Sodium 80 mg/ (Sodium Chloride) 100 mls @ 10 mls/hr IVP .Q10H [facility] Last Admin: 07/25/18 09:55 Dose: Not Given Metoprolol Tartrate (Lopressor) 5 mg IVP Q6H PRN PRN Reason: Other Sucralfate (Carafate Oral Susp) 1 gm PO QID [facility] Last Admin: 07/25/18 09:47 Dose: 1 gm - Labs Labs: 07/25/18 06:37 07/25/18 06:37 - Constitutional Appears: No Acute Distress, Chronically Ill - Head Exam Head Exam: ATRAUMATIC, NORMAL INSPECTION - Eye Exam Eye Exam: EOMI. absent: Scleral icterus - ENT Exam ENT Exam: Mucous Membranes Dry. absent: Mucous Membranes Moist - Respiratory Exam Respiratory Exam: NORMAL BREATHING PATTERN. absent: Accessory Muscle Use, Respiratory Distress - GI/Abdominal Exam GI & Abdominal Exam: Soft, Tenderness, Normal Bowel Sounds. 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 # Abd Pain, Hematochezia, Acute Blood Loss Anemia: Due to UGIB related to known PUD also at risk for anastamotic bleed. FC2b ulcer seen at anastamosis s/p clot removal with epi injection and electrocautery with hemostasis. # H/o obstructing PUD with gastric/duodenal ulcers # S/p Gastrojejunostomy Plan: - PPI gtt x 72 hrs, complete in AM of 07/26 - Clear Liquid diet today - Transfuse PRBCs, monitor response, goal at least 7; s/p 4 units PRBC, now with appropriate response - Monitor Hgb - Gen Surg consulted - Carafate liq QID Pt discussed with Dr. Tavarez; please see attestation for further recs/changes. Ty Grossman, PGY-4 <Anup Tavarez - Last Filed: 07/25/18 22:21> Objective - Vital Signs/Intake and Output Vital Signs (last 24 hours): Temp Pulse Resp BP Pulse Ox 98.3 F 69 12 149/81 100 07/25/18 20:00 07/25/18 17:00 07/25/18 17:00 07/25/18 16:54 07/25/18 17:00 Intake and Output: 07/25/18 07/26/18 18:59 06:59 Intake Total 1095 20 Output Total 451 Balance 644 20 - Medications Medications: Current Medications Amlodipine Besylate (Norvasc) 5 mg PO DAILY [facility] Last Admin: 07/25/18 09:47 Dose: 5 mg Hydralazine HCl (Apresoline) 10 mg PO QID [facility] Last Admin: 07/25/18 21:13 Dose: 10 mg Pantoprazole Sodium 80 mg/ (Sodium Chloride) 100 mls @ 10 mls/hr IVP .Q10H [facility] Last Admin: 07/25/18 15:41 Dose: 10 mls/hr Metoprolol Tartrate (Lopressor) 5 mg IVP Q6H PRN PRN Reason: Other Sucralfate (Carafate Oral Susp) 1 gm PO QID [facility] Last Admin: 07/25/18 21:13 Dose: 1 gm - Labs Labs: 07/25/18 06:37 07/25/18 06:37 Attending/Attestation - Attestation I have personally seen and examined this patient.: Yes I have fully participated in the care of the patient.: Yes I have reviewed all pertinent clinical information, including history, physical exam and plan: Yes Notes (Text): 07/25/18 22:21 The patient was seen and examined earlier to day. Chart reviewed. Findings, assessment and management were discussed with Dr. Grossman and reflected above.
[2018-07-25] MEDS ORDERED: HYDROmorphone 0.5 mg/0.5 ml ISec IVP ONE (15:30)
--- NOTE | 2018-07-25 19:36 | CP.PCM.PN ---
Subjective - Date & Time of Evaluation Date of Evaluation: 07/25/18 Time of Evaluation: 11:45 - Subjective Subjective: clinically same Objective - Vital Signs/Intake and Output Vital Signs (last 24 hours): Temp Pulse Resp BP Pulse Ox 98.4 F 69 12 149/81 100 07/25/18 16:00 07/25/18 17:00 07/25/18 17:00 07/25/18 16:54 07/25/18 17:00 Intake and Output: 07/25/18 07/26/18 18:59 06:59 Intake Total 1095 Output Total 451 Balance 644 - Medications Medications: Current Medications Amlodipine Besylate (Norvasc) 5 mg PO DAILY [facility] Last Admin: 07/25/18 09:47 Dose: 5 mg Hydralazine HCl (Apresoline) 10 mg PO QID [facility] Last Admin: 07/25/18 17:03 Dose: 10 mg Pantoprazole Sodium 80 mg/ (Sodium Chloride) 100 mls @ 10 mls/hr IVP .Q10H [facility] Last Admin: 07/25/18 15:41 Dose: 10 mls/hr Metoprolol Tartrate (Lopressor) 5 mg IVP Q6H PRN PRN Reason: Other Sucralfate (Carafate Oral Susp) 1 gm PO QID [facility] Last Admin: 07/25/18 17:03 Dose: 1 gm - Labs Labs: 07/25/18 06:37 07/25/18 06:37
[2018-07-26] MEDS: Pantoprazole 80 MG in Sodium Chloride 0.9% 100 ML IVP SCH ×2 (00:50→05:30)
[2018-07-26] MEDS ORDERED: HYDROmorphone 0.5 mg/0.5 ml ISec IVP ONE (05:20)
[2018-07-26 06:24] LABS: BASO % 0.2 % (0.0-2.0); EOS # 0.2 K/uL (0.0-0.7); EOS % 4.8 % (0.0-4.0); HEMOGLOBIN 10.4 g/dL (12.0-18.0); LYMPH # 0.8 K/uL (1.0-4.3); LYMPH % 16.9 % (20.0-40.0); MEAN CELL VOLUME 81.8 fL (80.0-94.0); MEAN CORPUSCULAR HEMOGLOBIN 26.9 pg (27.0-31.0); MEAN CORPUSCULAR HGB CONC 32.9 g/dL (33.0-37.0); MEAN PLATELET VOLUME 8.5 fL (7.2-11.7); MONO # 0.3 K/uL (0.0-0.8); MONO % 5.8 % (0.0-10.0); NEUT # 3.6 K/uL (1.8-7.0); NEUT % 72.3 % (50.0-75.0); NRBC % 0.1 % (0.0-2.0); RBC 3.87 Mil/uL (4.40-5.90); RED CELL DISTRIBUTION WIDTH 16.6 % (11.5-14.5)
[2018-07-26 06:36] LABS: ALB/GLOB RATIO 1.3 (1.0-2.1); ALBUMIN 3.2 g/dL (3.5-5.0); ALT/SGPT 19 U/L (21-72); AST/SGOT 18 U/L (17-59); BLOOD UREA NITROGEN 12 mg/dL (9-20); CALCIUM 8.5 mg/dl (8.6-10.4); GFR NON-AFRICAN AMERICAN > 60
[2018-07-26] MEDS: Sucralfate 1 gm/10 ml Oral Susp UD PO SCH ×4 (09:48→21:35)
--- NOTE | 2018-07-26 10:52 | CP.PCM.PN ---
Subjective - Date & Time of Evaluation Date of Evaluation: 07/26/18 Time of Evaluation: 10:50 - Subjective Subjective: Patient seen and examined at bedside. No overnight events reported. He denies any fever, chills, chest pain, SOB, nausea, vomiting, or urinary symptoms. Patient does complain of sharp left sided abdominal/flank pain. His stool is green and loose. Denies any blood or melena. He is tolerating liquid diet. Objective - Vital Signs/Intake and Output Vital Signs (last 24 hours): Temp Pulse Resp BP Pulse Ox 98.0 F 61 14 146/79 100 07/26/18 08:00 07/26/18 08:00 07/26/18 08:00 07/26/18 08:00 07/26/18 08:00 Intake and Output: 07/26/18 07/26/18 06:59 18:59 Intake Total 170 Output Total 800 Balance -630 - Medications Medications: Current Medications Amlodipine Besylate (Norvasc) 5 mg PO DAILY [facility] Last Admin: 07/26/18 09:48 Dose: 5 mg Hydralazine HCl (Apresoline) 10 mg PO QID [facility] Last Admin: 07/26/18 09:48 Dose: 10 mg Pantoprazole Sodium 80 mg/ (Sodium Chloride) 100 mls @ 10 mls/hr IVP .Q10H [facility] Last Admin: 07/26/18 05:30 Dose: Not Given Metoprolol Tartrate (Lopressor) 5 mg IVP Q6H PRN PRN Reason: Other Sucralfate (Carafate Oral Susp) 1 gm PO QID [facility] Last Admin: 07/26/18 09:48 Dose: 1 gm - Labs Labs: 07/26/18 06:10 07/26/18 06:09 - Constitutional Appears: No Acute Distress - Head Exam Head Exam: ATRAUMATIC, NORMAL INSPECTION, NORMOCEPHALIC - Eye Exam Eye Exam: EOMI, Normal appearance - ENT Exam ENT Exam: Mucous Membranes Moist - Respiratory Exam Respiratory Exam: Clear to Ausculation Bilateral. absent: Accessory Muscle Use - Cardiovascular Exam Cardiovascular Exam: +S1, +S2 - GI/Abdominal Exam GI & Abdominal Exam: Guarding (Left Sided), Soft, Tenderness (LUQ, LLQ), Normal Bowel Sounds. absent: Distended, Firm, Hernia, Mass - Extremities Exam Extremities Exam: absent: Pedal Edema - Neurological Exam Neurological Exam: Alert, Awake, Oriented x3 Assessment and Plan - Assessment and Plan (Free Text) Assessment: 67 yo male, homeless, hx of gastro-colic fistula, severe obstructing PUD with gastric/duodenal ulcers noted in 06/2017 s/p possible gastrojejunostomy, HTN, DM, presenting for abd pain. Admitted for evaluation and treatment of GI Bleed. Plan: GI Bleed GI Consult (Dr. Astorga), recs appreciated Surgery Consult (Dr. Duong), Recs Appreciated. Abd/Pelvis CT (Admission): Diffuse gastric and small bowel wall thickening in the left upper abdomen suspicious for gastroenteritis. Contracted gallbladder d emonstrated diffuse wall thickening without definite CT evidence of cholecystits. Otherwise no significant interval Change Angiography CT (07/23/18): Unremarkable. EGD(07/23/18): 1cm Hiatal Hernia, Bilroth II gastrojejunostomy. Anastomosis characterized by ulceration, nearly 3 cm in size with adherant clot present. Clot removed, with hemostasis during EGD -Continue Liquid Diet Today and advance as tolerated. -F/U H.Pylori Ag -Meds: Sucralfate 1gram PO QID Protonix Drip Hypertension Meds: Home Norvasc 10mg Daily. Hydralazine DC'd today Hx of Diabetes: Sugars have been controlled this visit. Proph DVT Proph Contraindicated SCD's Protonix Drip. All management per Dr. Venus Whitlock. Franklyn Oreilly, PGY-2
[2018-07-26] MEDS ORDERED: Pantoprazole 80 MG in Sodium Chloride 0.9% 100 ML IV SCH (12:30)
--- NOTE | 2018-07-26 12:36 | CP.PCM.PN ---
Subjective - Date & Time of Evaluation Date of Evaluation: 07/26/18 Time of Evaluation: 12:45 - Subjective Subjective: clinically same Objective - Vital Signs/Intake and Output Vital Signs (last 24 hours): Temp Pulse Resp BP Pulse Ox 98.0 F 61 14 146/79 100 07/26/18 08:00 07/26/18 08:00 07/26/18 08:00 07/26/18 08:00 07/26/18 08:00 Intake and Output: 07/26/18 07/26/18 06:59 18:59 Intake Total 170 Output Total 800 Balance -630 - Medications Medications: Current Medications Amlodipine Besylate (Norvasc) 10 mg PO DAILY [facility] Pantoprazole Sodium 80 mg/ (Sodium Chloride) 100 mls @ 10 mls/hr IV .Q10H [facility] Metoprolol Tartrate (Lopressor) 5 mg IVP Q6H PRN PRN Reason: Other Sucralfate (Carafate Oral Susp) 1 gm PO QID [facility] Last Admin: 07/26/18 09:48 Dose: 1 gm Tamsulosin HCl (Flomax) 0.4 mg PO DAILY [facility] - Labs Labs: 07/26/18 06:10 07/26/18 06:09
--- NOTE | 2018-07-26 18:42 | CP.PCM.PN ---
<Arnulfo Gurrola - Last Filed: 07/26/18 18:39> Subjective - Date & Time of Evaluation Date of Evaluation: 07/26/18 Time of Evaluation: 18:39 - Subjective Subjective: Patient is doing well. No bloody BMs. Tolerating CLD. No complaints. Objective - Vital Signs/Intake and Output Vital Signs (last 24 hours): Temp Pulse Resp BP Pulse Ox 98.3 F 80 14 127/74 100 07/26/18 16:00 07/26/18 16:00 07/26/18 16:00 07/26/18 16:00 07/26/18 16:00 Intake and Output: 07/26/18 07/26/18 06:59 18:59 Intake Total 170 580 Output Total 800 Balance -630 580 - Medications Medications: Current Medications Amlodipine Besylate (Norvasc) 10 mg PO DAILY [facility] Last Admin: 07/26/18 13:03 Dose: 10 mg Metoprolol Tartrate (Lopressor) 5 mg IVP Q6H PRN PRN Reason: Other Morphine Sulfate (Morphine) 1 mg IVP Q4 PRN PRN Reason: Pain, severe (8-10) Last Admin: 07/26/18 13:56 Dose: 1 mg Pantoprazole Sodium (Protonix Ec Tab) 40 mg PO BID [facility] Sucralfate (Carafate Oral Susp) 1 gm PO QID [facility] Last Admin: 07/26/18 18:15 Dose: 1 gm Tamsulosin HCl (Flomax) 0.4 mg PO DAILY [facility] - Labs Labs: 07/26/18 06:10 07/26/18 06:09 - Constitutional Appears: Well, Non-toxic - Head Exam Head Exam: ATRAUMATIC, NORMAL INSPECTION - ENT Exam ENT Exam: Mucous Membranes Moist, Normal Exam - Respiratory Exam Respiratory Exam: Clear to Ausculation Bilateral, NORMAL BREATHING PATTERN - Cardiovascular Exam Cardiovascular Exam: REGULAR RHYTHM, +S1, +S2 - GI/Abdominal Exam GI & Abdominal Exam: Soft, Normal Bowel Sounds. 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 # Abd Pain, Hematochezia, Acute Blood Loss Anemia: Due to UGIB related to known PUD also at risk for anastamotic bleed. FC2b ulcer seen at anastamosis s/p clot removal with epi injection and electrocautery with hemostasis. # H/o obstructing PUD with gastric/duodenal ulcers # S/p Gastrojejunostomy Plan: - PPI PO BID - Full liquid diet - Transfuse PRBCs, monitor response, goal at least 7; s/p 4 units PRBC, stable - Monitor Hgb - Gen Surg consulted - Carafate liq QID - OK to transfer out of ICU from GI perspective Pt discussed with Dr. Tavarez; please see attestation for further recs/changes. <Anup Tavarez - Last Filed: 07/27/18 11:41> Objective - Vital Signs/Intake and Output Vital Signs (last 24 hours): Temp Pulse Resp BP Pulse Ox 98.2 F 63 18 120/71 100 07/27/18 04:00 07/27/18 04:00 07/27/18 04:00 07/27/18 04:00 07/27/18 04:00 Intake and Output: 07/27/18 07/27/18 06:59 18:59 Intake Total 500 Output Total 500 Balance 0 - Medications Medications: Current Medications Amlodipine Besylate (Norvasc) 10 mg PO DAILY [facility] Last Admin: 07/27/18 11:22 Dose: 10 mg Metoprolol Tartrate (Lopressor) 5 mg IVP Q6H PRN PRN Reason: Other Morphine Sulfate (Morphine) 1 mg IVP Q4 PRN PRN Reason: Pain, severe (8-10) Last Admin: 07/27/18 07:55 Dose: 1 mg Pantoprazole Sodium (Protonix Ec Tab) 40 mg PO BID [facility] Last Admin: 07/27/18 11:22 Dose: 40 mg Sucralfate (Carafate Oral Susp) 1 gm PO QID [facility] Last Admin: 07/27/18 11:22 Dose: 1 gm Tamsulosin HCl (Flomax) 0.4 mg PO DAILY [facility] Last Admin: 07/27/18 11:22 Dose: 0.4 mg - Labs Labs: 07/26/18 06:10 07/27/18 06:22 Attending/Attestation - Attestation I have personally seen and examined this patient.: Yes I have fully participated in the care of the patient.: Yes I have reviewed all pertinent clinical information, including history, physical exam and plan: Yes Notes (Text): 07/26/18 Chart reviewed. Findings, assessment and management, as reflected above, were discussed with Dr. Gurrola.
[2018-07-27 06:55] LABS: ALB/GLOB RATIO 1.2 (1.0-2.1); ALT/SGPT 17 U/L (21-72); AST/SGOT 15 U/L (17-59); BLOOD UREA NITROGEN 13 mg/dL (9-20); CALCIUM 8.4 mg/dl (8.6-10.4); GFR NON-AFRICAN AMERICAN > 60
[2018-07-27] MEDS: Pantoprazole 40 mg EC Tab PO SCH ×2 (11:22→18:26)
[2018-07-27] MEDS: Sucralfate 1 gm/10 ml Oral Susp UD PO SCH ×4 (11:22→22:17)
--- NOTE | 2018-07-27 14:17 | CP.PCM.PN ---
<Arnulfo Gurrola - Last Filed: 07/27/18 15:57> Subjective - Date & Time of Evaluation Date of Evaluation: 07/27/18 Time of Evaluation: 14:15 - Subjective Subjective: Patient is doing well. Passing non-bloody BMs. Tolerating diet. No complaints. Objective - Vital Signs/Intake and Output Vital Signs (last 24 hours): Temp Pulse Resp BP Pulse Ox 98.2 F 63 18 120/71 100 07/27/18 04:00 07/27/18 04:00 07/27/18 04:00 07/27/18 04:00 07/27/18 04:00 Intake and Output: 07/27/18 07/27/18 06:59 18:59 Intake Total 500 Output Total 500 Balance 0 - Medications Medications: Current Medications Amlodipine Besylate (Norvasc) 10 mg PO DAILY [facility] Last Admin: 07/27/18 11:22 Dose: 10 mg Metoprolol Tartrate (Lopressor) 5 mg IVP Q6H PRN PRN Reason: Other Morphine Sulfate (Morphine) 1 mg IVP Q4 PRN PRN Reason: Pain, severe (8-10) Last Admin: 07/27/18 07:55 Dose: 1 mg Pantoprazole Sodium (Protonix Ec Tab) 40 mg PO BID [facility] Last Admin: 07/27/18 11:22 Dose: 40 mg Sucralfate (Carafate Oral Susp) 1 gm PO QID [facility] Last Admin: 07/27/18 11:22 Dose: 1 gm Tamsulosin HCl (Flomax) 0.4 mg PO DAILY [facility] Last Admin: 07/27/18 11:22 Dose: 0.4 mg - Labs Labs: 07/26/18 06:10 07/27/18 06:22 - Constitutional Appears: Well, Non-toxic - Head Exam Head Exam: ATRAUMATIC, NORMAL INSPECTION - Eye Exam Eye Exam: EOMI, Normal appearance - ENT Exam ENT Exam: Mucous Membranes Moist, Normal Exam - Respiratory Exam Respiratory Exam: Clear to Ausculation Bilateral, NORMAL BREATHING PATTERN - Cardiovascular Exam Cardiovascular Exam: REGULAR RHYTHM, +S1, +S2 - GI/Abdominal Exam GI & Abdominal Exam: Soft, Normal Bowel Sounds. absent: Tenderness - Extremities Exam Extremities Exam: Full ROM, Normal Inspection - Neurological Exam Neurological Exam: Alert, Awake, Oriented x3 - Psychiatric Exam Psychiatric exam: Normal Affect, Normal Mood - Skin Skin Exam: Dry, Normal Color Assessment and Plan - Assessment and Plan (Free Text) Assessment: 67 yo homeless BM with hx of severe obstructing PUD with gastric/duodenal ulcers noted in 06/2017 s/p BillrothII, ?gastro-colic fistula, HTN, DM presenting with abd pain and BRBPR. # Abd Pain, Hematochezia, Acute Blood Loss Anemia: Due to UGIB related to known PUD also at risk for anastamotic bleed. FC2b ulcer seen at anastamosis s/p clot removal with epi injection and electrocautery with hemostasis. # H/o obstructing PUD with gastric/duodenal ulcers # S/p Gastrojejunostomy Plan: - PPI PO BID - Diabetic soft diet - Transfuse PRBCs, monitor response, goal at least 7; s/p 4 units PRBC, stable - Monitor Hgb - Gen Surg consulted - Carafate liq QID - OK to transfer out of ICU from GI perspective Pt discussed with Dr. Tavarez; please see attestation for further recs/changes. <Anup Tavarez - Last Filed: 07/27/18 21:39> Objective - Vital Signs/Intake and Output Vital Signs (last 24 hours): Temp Pulse Resp BP Pulse Ox 98.9 F 77 18 147/74 100 07/27/18 16:00 07/27/18 18:00 07/27/18 18:00 07/27/18 18:00 07/27/18 04:00 - Medications Medications: Current Medications Amlodipine Besylate (Norvasc) 10 mg PO DAILY [facility] Last Admin: 07/27/18 11:22 Dose: 10 mg Metoprolol Tartrate (Lopressor) 5 mg IVP Q6H PRN PRN Reason: Other Morphine Sulfate (Morphine) 1 mg IVP Q4 PRN PRN Reason: Pain, severe (8-10) Last Admin: 07/27/18 18:27 Dose: 1 mg Pantoprazole Sodium (Protonix Ec Tab) 40 mg PO BID [facility] Last Admin: 07/27/18 18:26 Dose: 40 mg Sucralfate (Carafate Oral Susp) 1 gm PO QID [facility] Last Admin: 07/27/18 18:26 Dose: 1 gm Tamsulosin HCl (Flomax) 0.4 mg PO DAILY [facility] Last Admin: 07/27/18 11:22 Dose: 0.4 mg - Labs Labs: 07/26/18 06:10 07/27/18 06:22 Attending/Attestation - Attestation I have personally seen and examined this patient.: Yes I have fully participated in the care of the patient.: Yes I have reviewed all pertinent clinical information, including history, physical exam and plan: Yes Notes (Text): 07/27/18 21:39 Chart reviewed. Findings, assessment and management, as reflected above, were discussed with Dr. Gurrola.
--- NOTE | 2018-07-27 16:05 | CP.PCM.PN ---
Subjective - Date & Time of Evaluation Date of Evaluation: 07/27/18 Time of Evaluation: 11:15 - Subjective Subjective: clinically same Objective - Vital Signs/Intake and Output Vital Signs (last 24 hours): Temp Pulse Resp BP Pulse Ox 98.2 F 63 18 120/71 100 07/27/18 04:00 07/27/18 04:00 07/27/18 04:00 07/27/18 04:00 07/27/18 04:00 Intake and Output: 07/27/18 07/27/18 06:59 18:59 Intake Total 500 Output Total 500 Balance 0 - Medications Medications: Current Medications Amlodipine Besylate (Norvasc) 10 mg PO DAILY [facility] Last Admin: 07/27/18 11:22 Dose: 10 mg Metoprolol Tartrate (Lopressor) 5 mg IVP Q6H PRN PRN Reason: Other Morphine Sulfate (Morphine) 1 mg IVP Q4 PRN PRN Reason: Pain, severe (8-10) Last Admin: 07/27/18 07:55 Dose: 1 mg Pantoprazole Sodium (Protonix Ec Tab) 40 mg PO BID [facility] Last Admin: 07/27/18 11:22 Dose: 40 mg Sucralfate (Carafate Oral Susp) 1 gm PO QID [facility] Last Admin: 07/27/18 11:22 Dose: 1 gm Tamsulosin HCl (Flomax) 0.4 mg PO DAILY [facility] Last Admin: 07/27/18 11:22 Dose: 0.4 mg - Labs Labs: 07/26/18 06:10 07/27/18 06:22
--- NOTE | 2018-07-28 08:38 | CP.PCM.PN ---
<Arnulfo Gurrola - Last Filed: 07/28/18 08:33> Subjective - Date & Time of Evaluation Date of Evaluation: 07/28/18 Time of Evaluation: 08:33 - Subjective Subjective: GI Fellow PGY4, progress note. Patient is doing well. Tolerating diet. No complaints. Mild abdominal pain. BM have been normal color. 5pt ROS completed and negative except for above. Objective - Vital Signs/Intake and Output Vital Signs (last 24 hours): Temp Pulse Resp BP Pulse Ox 98 F 61 14 128/79 100 07/28/18 04:00 07/28/18 04:00 07/28/18 04:00 07/28/18 04:00 07/28/18 04:00 - Medications Medications: Current Medications Amlodipine Besylate (Norvasc) 10 mg PO DAILY [facility] Last Admin: 07/27/18 11:22 Dose: 10 mg Metoprolol Tartrate (Lopressor) 5 mg IVP Q6H PRN PRN Reason: Other Morphine Sulfate (Morphine) 1 mg IVP Q4 PRN PRN Reason: Pain, severe (8-10) Last Admin: 07/28/18 04:00 Dose: 1 mg Pantoprazole Sodium (Protonix Ec Tab) 40 mg PO BID [facility] Last Admin: 07/27/18 18:26 Dose: 40 mg Sucralfate (Carafate Oral Susp) 1 gm PO QID [facility] Last Admin: 07/27/18 22:17 Dose: 1 gm Tamsulosin HCl (Flomax) 0.4 mg PO DAILY [facility] Last Admin: 07/27/18 11:22 Dose: 0.4 mg - Labs Labs: 07/26/18 06:10 07/27/18 06:22 - Constitutional Appears: Well, Non-toxic - Head Exam Head Exam: ATRAUMATIC, NORMAL INSPECTION - Eye Exam Eye Exam: EOMI, Normal appearance - ENT Exam ENT Exam: Mucous Membranes Moist, Normal Exam - Respiratory Exam Respiratory Exam: Clear to Ausculation Bilateral, NORMAL BREATHING PATTERN - Cardiovascular Exam Cardiovascular Exam: REGULAR RHYTHM, +S1, +S2 - GI/Abdominal Exam GI & Abdominal Exam: Soft, Tenderness, Normal Bowel Sounds - Extremities Exam Extremities Exam: Full ROM, Normal Inspection - Neurological Exam Neurological Exam: Alert, Awake, Oriented x3 - Psychiatric Exam Psychiatric exam: Normal Affect, Normal Mood - Skin Skin Exam: Normal Color, Warm Assessment and Plan - Assessment and Plan (Free Text) Assessment: 67 yo homeless BM with hx of severe obstructing PUD with gastric/duodenal ulcers noted in 06/2017 s/p BillrothII, ?gastro-colic fistula, HTN, DM presenting with abd pain and BRBPR. # Abd Pain, Hematochezia, Acute Blood Loss Anemia: Due to UGIB related to known PUD also at risk for anastamotic bleed. FC2b ulcer seen at anastamosis s/p clot removal with epi injection and electrocautery with hemostasis. # H/o obstructing PUD with gastric/duodenal ulcers # S/p Gastrojejunostomy Plan: - PPI PO BID - Diabetic soft diet - Transfuse PRBCs, monitor response, goal at least 7; s/p 4 units PRBC, stable - Monitor Hgb - Gen Surg consulted - Carafate liq QID - OK to transfer out of ICU from GI perspective - Must avoid NSAIDs. Patient understands. Tylenol should be used for pain control. - Follow up with Dr. Astorga in 2 months for EGD evaluation. Pt discussed with Dr. Astorga; please see attestation for further recs/changes. <Efren Astorga - Last Filed: 07/28/18 08:55> Objective - Vital Signs/Intake and Output Vital Signs (last 24 hours): Temp Pulse Resp BP Pulse Ox 98 F 61 14 128/79 100 07/28/18 04:00 07/28/18 04:00 07/28/18 04:00 07/28/18 04:00 07/28/18 04:00 - Medications Medications: Current Medications Amlodipine Besylate (Norvasc) 10 mg PO DAILY [facility] Last Admin: 07/27/18 11:22 Dose: 10 mg Metoprolol Tartrate (Lopressor) 5 mg IVP Q6H PRN PRN Reason: Other Morphine Sulfate (Morphine) 1 mg IVP Q4 PRN PRN Reason: Pain, severe (8-10) Last Admin: 07/28/18 04:00 Dose: 1 mg Pantoprazole Sodium (Protonix Ec Tab) 40 mg PO BID [facility] Last Admin: 07/27/18 18:26 Dose: 40 mg Sucralfate (Carafate Oral Susp) 1 gm PO QID [facility] Last Admin: 07/27/18 22:17 Dose: 1 gm Tamsulosin HCl (Flomax) 0.4 mg PO DAILY [facility] Last Admin: 07/27/18 11:22 Dose: 0.4 mg - Labs Labs: 07/26/18 06:10 07/27/18 06:22 Attending/Attestation - Attestation I have personally seen and examined this patient.: Yes I have fully participated in the care of the patient.: Yes I have reviewed all pertinent clinical information, including history, physical exam and plan: Yes Notes (Text): 07/28/18 08:53 I have seen and examined patient with GI fellow. No acute events overnight, he is seen resting in bed comfortably. He denies abdominal pain, nausea, vomiting, fever/chills. Tolerating PO diet without difficulty. Review of vitals from today are normal. PUD s/p billroth II Melena, s/p EGD showing large anastomotic ulcer DM / HTN - Diet as tolerated - Continue with PPI therapy - H/H stable, continue to monitor - NSAID avoidance - No further planned GI intervention at this time, will sign off case. Patient would benefit from additional outpatient follow up and repeat EGD in 2 months to ensure ulcer healing. Please reconsult as necessary, thank you.
[2018-07-28] MEDS: Sucralfate 1 gm/10 ml Oral Susp UD PO SCH ×3 (09:11→22:29)
[2018-07-28] MEDS: Pantoprazole 40 mg EC Tab PO SCH ×2 (09:11→18:50)
--- NOTE | 2018-07-28 13:43 | CP.PCM.PN ---
Subjective - Date & Time of Evaluation Date of Evaluation: 07/28/18 Time of Evaluation: 13:41 - Subjective Subjective: Patient seen and examined at bedside. No overnight events reported. Patient denies any fevers, chills, lightheadedness, chest pain, SOB, or urinary symptoms. Admits to normal color stool and abdominal pain is improving. He is tolerating his diet. Objective - Vital Signs/Intake and Output Vital Signs (last 24 hours): Temp Pulse Resp BP Pulse Ox 98 F 81 14 129/88 100 07/28/18 04:00 07/28/18 11:05 07/28/18 04:00 07/28/18 11:05 07/28/18 04:00 - Medications Medications: Current Medications Amlodipine Besylate (Norvasc) 10 mg PO DAILY [facility] Last Admin: 07/28/18 09:11 Dose: 10 mg Metoprolol Tartrate (Lopressor) 5 mg IVP Q6H PRN PRN Reason: Other Morphine Sulfate (Morphine) 1 mg IVP Q4 PRN PRN Reason: Pain, severe (8-10) Last Admin: 07/28/18 11:15 Dose: 1 mg Pantoprazole Sodium (Protonix Ec Tab) 40 mg PO BID [facility] Last Admin: 07/28/18 09:11 Dose: 40 mg Sucralfate (Carafate Oral Susp) 1 gm PO QID [facility] Last Admin: 07/28/18 09:11 Dose: 1 gm Tamsulosin HCl (Flomax) 0.4 mg PO DAILY [facility] Last Admin: 07/28/18 09:11 Dose: 0.4 mg - Labs Labs: 07/26/18 06:10 07/27/18 06:22 - Additional Findings Additional findings: - Constitutional Appears: No Acute Distress - Head Exam Head Exam: ATRAUMATIC, NORMAL INSPECTION, NORMOCEPHALIC - Eye Exam Eye Exam: EOMI, Normal appearance - ENT Exam ENT Exam: Mucous Membranes Moist - Respiratory Exam Respiratory Exam: Clear to Ausculation Bilateral. absent: Accessory Muscle Use - Cardiovascular Exam Cardiovascular Exam: +S1, +S2 - GI/Abdominal Exam GI & Abdominal Exam: Guarding (Left Sided), Soft, Tenderness (LUQ, LLQ), Normal Bowel Sounds. absent: Distended, Firm, Hernia, Mass - Extremities Exam Extremities Exam: absent: Pedal Edema - Neurological Exam Neurological Exam: Alert, Awake, Oriented x3 Assessment and Plan - Assessment and Plan (Free Text) Assessment: 67 yo male, homeless, hx of gastro-colic fistula, severe obstructing PUD with gastric/duodenal ulcers noted in 06/2017 s/p possible gastrojejunostomy, HTN, DM, presenting for abd pain. Admitted for evaluation and treatment of GI Bleed. Plan: GI Bleed GI Consult (Dr. Astorga), recs appreciated Surgery Consult (Dr. Duong), Recs Appreciated. Abd/Pelvis CT (Admission): Diffuse gastric and small bowel wall thickening in the left upper abdomen suspicious for gastroenteritis. Contracted gallbladder demonstrated diffuse wall thickening without definite CT evidence of cholecystits. Otherwise no significant interval Change Angiography CT (07/23/18): Unremarkable. EGD(07/23/18): 1cm Hiatal Hernia, Bilroth II gastrojejunostomy. Anastomosis characterized by ulceration, nearly 3 cm in size with adherant clot present. Clot removed, with hemostasis during EGD -Continue Diabetic Diet. -F/U H.Pylori Ag -Meds: Sucralfate 1gram PO QID Protonix PO BID Hypertension Meds: Home Norvasc 10mg Daily. Hx of Diabetes: Sugars have been controlled this visit. Consider HgBA1C Proph DVT Proph Contraindicated SCD's Protonix Drip. Dispo: Patient to be discharged tomorrow with continuation of home medication. He is to follow up with PCP within 7 days of discharge. Patient also needs to schedule an appointment with Dr. Astorga for outpatient endoscopy 2 months post discharge. All management per Dr. Venus Whitlock. Franklyn Oreilly, PGY-2
[2018-07-28 13:49] LABS: HEMOGLOBIN 10.2 g/dL (12.0-18.0); MEAN CELL VOLUME 82.8 fL (80.0-94.0); RBC 3.76 Mil/uL (4.40-5.90); WHITE BLOOD COUNT 5.9 K/uL (4.8-10.8)
[2018-07-28 13:50] LABS: BASO % 0.6 % (0.0-2.0); EOS # 0.4 K/uL (0.0-0.7); EOS % 6.2 % (0.0-4.0); LYMPH # 0.9 K/uL (1.0-4.3); LYMPH % 15.6 % (20.0-40.0); MEAN CORPUSCULAR HGB CONC 32.6 g/dL (33.0-37.0); MEAN PLATELET VOLUME 8.6 fL (7.2-11.7); MONO # 0.4 K/uL (0.0-0.8); MONO % 6.5 % (0.0-10.0); NEUT # 4.2 K/uL (1.8-7.0); NEUT % 71.1 % (50.0-75.0); RED CELL DISTRIBUTION WIDTH 17.6 % (11.5-14.5)
[2018-07-28 14:58] LABS: ALB/GLOB RATIO 1.2 (1.0-2.1); ALBUMIN 3.2 g/dL (3.5-5.0); ALT/SGPT 18 U/L (21-72); AST/SGOT 17 U/L (17-59); BLOOD UREA NITROGEN 19 mg/dL (9-20); CALCIUM 8.7 mg/dl (8.6-10.4); GFR NON-AFRICAN AMERICAN > 60
--- NOTE | 2018-07-28 21:19 | CP.PCM.PN ---
Subjective - Date & Time of Evaluation Date of Evaluation: 07/28/18 Time of Evaluation: 11:00 - Subjective Subjective: clinically same Objective - Vital Signs/Intake and Output Vital Signs (last 24 hours): Temp Pulse Resp BP Pulse Ox 98 F 81 14 129/88 100 07/28/18 04:00 07/28/18 11:05 07/28/18 04:00 07/28/18 11:05 07/28/18 04:00 - Medications Medications: Current Medications Amlodipine Besylate (Norvasc) 10 mg PO DAILY [facility] Last Admin: 07/28/18 09:11 Dose: 10 mg Metoprolol Tartrate (Lopressor) 5 mg IVP Q6H PRN PRN Reason: Other Morphine Sulfate (Morphine) 1 mg IVP Q4 PRN PRN Reason: Pain, severe (8-10) Last Admin: 07/28/18 11:15 Dose: 1 mg Pantoprazole Sodium (Protonix Ec Tab) 40 mg PO BID [facility] Last Admin: 07/28/18 18:50 Dose: 40 mg Sucralfate (Carafate Oral Susp) 1 gm PO QID [facility] Last Admin: 07/28/18 18:50 Dose: 1 gm Tamsulosin HCl (Flomax) 0.4 mg PO DAILY [facility] Last Admin: 07/28/18 09:11 Dose: 0.4 mg - Labs Labs: 07/28/18 13:47 07/28/18 14:27
--- NOTE | 2018-07-29 07:49 | CP.PCM.PN ---
Subjective - Date & Time of Evaluation Date of Evaluation: 07/29/18 Time of Evaluation: 07:49 - Subjective Subjective: Medicine Progress Note - Dr Yue Whitlock's service Patient seen and examined at bedside. Per nursing no acute events overnight. Ambulating and tolerating diet. Patient reports having epigastric and left sided abdominal pain. Rates the pain an 8/10 on pain scale. He offers no other complaints. He denies any blood in the stool, nausea/vomiting, chest pain, palpitations, sob. Objective - Vital Signs/Intake and Output Vital Signs (last 24 hours): Temp Pulse Resp BP Pulse Ox 97.8 F 61 18 122/61 100 07/29/18 03:00 07/29/18 03:00 07/29/18 03:00 07/29/18 03:00 07/29/18 03:00 - Medications Medications: Current Medications Amlodipine Besylate (Norvasc) 10 mg PO DAILY [facility] Last Admin: 07/28/18 09:11 Dose: 10 mg Metoprolol Tartrate (Lopressor) 5 mg IVP Q6H PRN PRN Reason: Other Morphine Sulfate (Morphine) 1 mg IVP Q4 PRN PRN Reason: Pain, severe (8-10) Last Admin: 07/28/18 23:26 Dose: 1 mg Pantoprazole Sodium (Protonix Ec Tab) 40 mg PO BID [facility] Last Admin: 07/28/18 18:50 Dose: 40 mg Sucralfate (Carafate Oral Susp) 1 gm PO QID [facility] Last Admin: 07/28/18 22:29 Dose: 1 gm Tamsulosin HCl (Flomax) 0.4 mg PO DAILY [facility] Last Admin: 07/28/18 09:11 Dose: 0.4 mg - Labs Labs: 07/28/18 13:47 07/28/18 14:27 - Constitutional Appears: Non-toxic, No Acute Distress - Head Exam Head Exam: ATRAUMATIC, NORMAL INSPECTION, NORMOCEPHALIC - Eye Exam Eye Exam: EOMI, Normal appearance - ENT Exam ENT Exam: Mucous Membranes Moist - Neck Exam Neck Exam: Full ROM - Respiratory Exam Respiratory Exam: Clear to Ausculation Bilateral, NORMAL BREATHING PATTERN. absent: Rales, Rhonchi, Wheezes - Cardiovascular Exam Cardiovascular Exam: REGULAR RHYTHM, +S1, +S2 - GI/Abdominal Exam GI & Abdominal Exam: Soft, Normal Bowel Sounds. absent: Distended Additional comments: +voluntary guarding - Extremities Exam Extremities Exam: Normal Inspection. absent: Calf Tenderness - Neurological Exam Neurological Exam: Alert, Awake, Oriented x3 - Psychiatric Exam Psychiatric exam: Normal Affect, Normal Mood - Skin Skin Exam: Dry, Normal Color, Warm Assessment and Plan - Assessment and Plan (Free Text) Assessment: 67 yo male, homeless, hx of gastro-colic fistula, severe obstructing PUD with gastric/duodenal ulcers noted in 06/2017 s/p possible gastrojejunostomy, HTN, DM, presenting for abd pain. Admitted for evaluation and treatment of GI Bleed. GI Bleed (resolved) -Stable, afebrile -Denies any further episodes of bleeding -Continue diabetic diet -Protonix 40mg PO BID, Carafate 1gm PO QID -H Pylori pending -GI Consult (Dr. Astorga), recs appreciated -Surgery Consult (Dr. Duong), Recs Appreciated. Imaging: Abd/Pelvis CT (Admission): Diffuse gastric and small bowel wall thickening in the left upper abdomen suspicious for gastroenteritis. Contracted gallbladder demonstrated diffuse wall thickening without definite CT evidence of cholecystits. Otherwise no significant interval Change (see full report) Angiography CT (07/23/18): Unremarkable (see full report) EGD(07/23/18): 1cm Hiatal Hernia, Bilroth II gastrojejunostomy. Anastomosis characterized by ulceration, nearly 3 cm in size with adherant clot present. Clot removed, with hemostasis during EGD Hypertension -Continue Home Norvasc 10mg Daily. Diabetes Mellitus -Controlled BPH -Continue Flomax 0.4mg PO daily GI/DVT ppx: -Protonix 40mg PO BID -SCDs Dispo: PT recommending TCU for discharge, however patient is homeless. Patient to be discharged pending placement. He is to follow up with PCP within 7 days of discharge. Patient also needs to schedule an appointment with Dr. Astorga for outpatient endoscopy 2 months post discharge. All questions and concerns were addressed. All management per Dr. Venus Whitlock. Jennifer Smiley DO PGY-2
[2018-07-29 09:40] LABS: BASO % 0.8 % (0.0-2.0); EOS # 0.4 K/uL (0.0-0.7); EOS % 7.6 % (0.0-4.0); HEMOGLOBIN 10.2 g/dL (12.0-18.0); LYMPH # 0.8 K/uL (1.0-4.3); LYMPH % 15.9 % (20.0-40.0); MEAN CORPUSCULAR HEMOGLOBIN 27.3 pg (27.0-31.0); MEAN CORPUSCULAR HGB CONC 32.1 g/dL (33.0-37.0); MEAN PLATELET VOLUME 8.8 fL (7.2-11.7); MONO # 0.2 K/uL (0.0-0.8); MONO % 3.3 % (0.0-10.0); NEUT # 3.6 K/uL (1.8-7.0); NEUT % 72.4 % (50.0-75.0); RBC 3.76 Mil/uL (4.40-5.90); RED CELL DISTRIBUTION WIDTH 17.8 % (11.5-14.5); WHITE BLOOD COUNT 4.9 K/uL (4.8-10.8)
[2018-07-29] MEDS: Sucralfate 1 gm/10 ml Oral Susp UD PO SCH ×4 (09:43→21:42)
[2018-07-29] MEDS: Pantoprazole 40 mg EC Tab PO SCH ×2 (09:45→17:38)
[2018-07-29 09:50] LABS: MEAN CELL VOLUME 84.9 fL (80.0-94.0)
[2018-07-29 09:55] LABS: ALB/GLOB RATIO 1.3 (1.0-2.1); ALBUMIN 3.4 g/dL (3.5-5.0); ALT/SGPT 19 U/L (21-72); AST/SGOT 15 U/L (17-59); BLOOD UREA NITROGEN 20 mg/dL (9-20); CALCIUM 8.6 mg/dl (8.6-10.4); GFR NON-AFRICAN AMERICAN > 60
--- NOTE | 2018-07-29 13:53 | CP.PCM.PN ---
Subjective - Date & Time of Evaluation Date of Evaluation: 07/29/18 Time of Evaluation: 12:30 - Subjective Subjective: clinically same Objective - Vital Signs/Intake and Output Vital Signs (last 24 hours): Temp Pulse Resp BP Pulse Ox 98.2 F 84 14 111/60 100 07/29/18 08:00 07/29/18 08:00 07/29/18 08:00 07/29/18 08:00 07/29/18 08:00 - Medications Medications: Current Medications Amlodipine Besylate (Norvasc) 10 mg PO DAILY [facility] Last Admin: 07/29/18 09:43 Dose: 10 mg Metoprolol Tartrate (Lopressor) 5 mg IVP Q6H PRN PRN Reason: Other Morphine Sulfate (Morphine) 1 mg IVP Q4 PRN PRN Reason: Pain, severe (8-10) Last Admin: 07/28/18 23:26 Dose: 1 mg Pantoprazole Sodium (Protonix Ec Tab) 40 mg PO BID [facility] Last Admin: 07/29/18 09:45 Dose: 40 mg Sucralfate (Carafate Oral Susp) 1 gm PO QID [facility] Last Admin: 07/29/18 09:43 Dose: 1 gm Tamsulosin HCl (Flomax) 0.4 mg PO DAILY [facility] Last Admin: 07/29/18 09:44 Dose: 0.4 mg - Labs Labs: 07/29/18 09:24 07/29/18 09:24
[2018-07-30] MEDS: Sucralfate 1 gm/10 ml Oral Susp UD PO SCH ×4 (10:15→22:23)
[2018-07-30] MEDS: Pantoprazole 40 mg EC Tab PO SCH ×2 (10:15→18:13)
[2018-07-30 12:04] LABS: BASO % 0.4 % (0.0-2.0); EOS # 0.3 K/uL (0.0-0.7); HEMOGLOBIN 10.2 g/dL (12.0-18.0); LYMPH # 0.8 K/uL (1.0-4.3); LYMPH % 14.9 % (20.0-40.0); MEAN CELL VOLUME 83.2 fL (80.0-94.0); MEAN CORPUSCULAR HEMOGLOBIN 27.8 pg (27.0-31.0); MEAN CORPUSCULAR HGB CONC 33.4 g/dL (33.0-37.0); MEAN PLATELET VOLUME 9.2 fL (7.2-11.7); MONO # 0.4 K/uL (0.0-0.8); MONO % 6.8 % (0.0-10.0); NEUT % 71.9 % (50.0-75.0); RBC 3.69 Mil/uL (4.40-5.90); RED CELL DISTRIBUTION WIDTH 17.5 % (11.5-14.5); WHITE BLOOD COUNT 5.5 K/uL (4.8-10.8)
[2018-07-30 12:21] LABS: ALB/GLOB RATIO 1.4 (1.0-2.1); ALBUMIN 3.5 g/dL (3.5-5.0); ALT/SGPT 28 U/L (21-72); AST/SGOT 24 U/L (17-59); BLOOD UREA NITROGEN 21 mg/dL (9-20); CALCIUM 8.9 mg/dl (8.6-10.4); GFR NON-AFRICAN AMERICAN > 60
--- NOTE | 2018-07-30 15:02 | CP.PCM.PN ---
Subjective - Date & Time of Evaluation Date of Evaluation: 07/30/18 Time of Evaluation: 10:00 - Subjective Subjective: Patient seen and examined at bedside. No overnight events reproted. Patient is tolerating diet. currently complains of the same left sided abdominal pain. He denies any fever, chills, chest pain, SOB, urinary symptoms, changes in bowel habits, melena or blood in the stool Objective - Vital Signs/Intake and Output Vital Signs (last 24 hours): Temp Pulse Resp BP Pulse Ox 97.9 F 68 20 139/75 100 07/30/18 07:00 07/30/18 07:00 07/30/18 07:00 07/30/18 07:00 07/30/18 07:00 - Medications Medications: Current Medications Amlodipine Besylate (Norvasc) 10 mg PO DAILY [facility] Last Admin: 07/30/18 10:15 Dose: 10 mg Metoprolol Tartrate (Lopressor) 5 mg IVP Q6H PRN PRN Reason: Other Morphine Sulfate (Morphine) 1 mg IVP Q6H PRN PRN Reason: Pain, severe (8-10) Last Admin: 07/30/18 12:35 Dose: 1 mg Pantoprazole Sodium (Protonix Ec Tab) 40 mg PO BID [facility] Last Admin: 07/30/18 10:15 Dose: 40 mg Sucralfate (Carafate Oral Susp) 1 gm PO QID [facility] Last Admin: 07/30/18 13:24 Dose: 1 gm Tamsulosin HCl (Flomax) 0.4 mg PO DAILY [facility] Last Admin: 07/30/18 10:15 Dose: 0.4 mg - Labs Labs: 07/30/18 11:53 07/30/18 11:53 - Additional Findings Additional findings: - Constitutional Appears: No Acute Distress - Head Exam Head Exam: ATRAUMATIC, NORMAL INSPECTION, NORMOCEPHALIC - Eye Exam Eye Exam: EOMI, Normal appearance - ENT Exam ENT Exam: Mucous Membranes Moist - Respiratory Exam Respiratory Exam: Clear to Ausculation Bilateral. absent: Accessory Muscle Use - Cardiovascular Exam Cardiovascular Exam: +S1, +S2 - GI/Abdominal Exam GI & Abdominal Exam: Guarding (Left Sided), Soft, Tenderness (LUQ, LLQ), Normal Bowel Sounds. absent: Distended, Firm, Hernia, Mass - Extremities Exam Extremities Exam: absent: Pedal Edema - Neurological Exam Neurological Exam: Alert, Awake, Oriented x3 Assessment and Plan - Assessment and Plan (Free Text) Assessment: 67 yo male, homeless, hx of gastro-colic fistula, severe obstructing PUD with ga stric/duodenal ulcers noted in 06/2017 s/p possible gastrojejunostomy, HTN, DM, presenting for abd pain. Admitted for evaluation and treatment of GI Bleed. Plan: GI Bleed (resolved) -Stable, afebrile -Denies any further episodes of bleeding -Continue diabetic diet -Protonix 40mg PO BID, Carafate 1gm PO QID -H Pylori pending -GI Consult (Dr. Astorga), recs appreciated -Surgery Consult (Dr. Duong), Recs Appreciated. Imaging: Abd/Pelvis CT (Admission): Diffuse gastric and small bowel wall thickening in the left upper abdomen suspicious for gastroenteritis. Contracted gallbladder demonstrated diffuse wall thickening without definite CT evidence of cholecystits. Otherwise no significant interval Change (see full report) Angiography CT (07/23/18): Unremarkable (see full report) EGD(07/23/18): 1cm Hiatal Hernia, Bilroth II gastrojejunostomy. Anastomosis characterized by ulceration, nearly 3 cm in size with adherant clot present. Rae t removed, with hemostasis during EGD Hypertension -Continue Home Norvasc 10mg Daily. Diabetes Mellitus -Controlled BPH -Continue Flomax 0.4mg PO daily GI/DVT ppx: -Protonix 40mg PO BID -SCDs Dispo: PT recommending TCU for discharge, however patient is homeless. Patient to be discharged pending placement. He is to follow up with PCP within 7 days of discharge. Patient also needs to schedule an appointment with Dr. Astorga for outpatient endoscopy 2 months post discharge. All questions and concerns were addressed. All management per Dr. Venus Whitlock. Franklyn Oreilly, PGY-2
--- NOTE | 2018-07-30 21:16 | CP.PCM.PN ---
Subjective - Date & Time of Evaluation Date of Evaluation: 07/30/18 Time of Evaluation: 10:15 - Subjective Subjective: clinically same Objective - Vital Signs/Intake and Output Vital Signs (last 24 hours): Temp Pulse Resp BP Pulse Ox 98.5 F 74 20 111/67 99 07/30/18 15:10 07/30/18 15:10 07/30/18 15:10 07/30/18 15:10 07/30/18 15:10 - Medications Medications: Current Medications Amlodipine Besylate (Norvasc) 10 mg PO DAILY [facility] Last Admin: 07/30/18 10:15 Dose: 10 mg Metoprolol Tartrate (Lopressor) 5 mg IVP Q6H PRN PRN Reason: Other Morphine Sulfate (Morphine) 1 mg IVP Q6H PRN PRN Reason: Pain, severe (8-10) Last Admin: 07/30/18 12:35 Dose: 1 mg Pantoprazole Sodium (Protonix Ec Tab) 40 mg PO BID [facility] Last Admin: 07/30/18 18:13 Dose: 40 mg Sucralfate (Carafate Oral Susp) 1 gm PO QID [facility] Last Admin: 07/30/18 18:13 Dose: 1 gm Tamsulosin HCl (Flomax) 0.4 mg PO DAILY [facility] Last Admin: 07/30/18 10:15 Dose: 0.4 mg - Labs Labs: 07/30/18 11:53 07/30/18 11:53
[2018-07-31 08:18] VITALS: RESP 20
[2018-07-31] MEDS: Sucralfate 1 gm/10 ml Oral Susp UD PO SCH ×4 (10:27→21:55)
[2018-07-31] MEDS: Pantoprazole 40 mg EC Tab PO SCH ×2 (10:28→18:30)
--- NOTE | 2018-07-31 21:31 | CP.PCM.PN ---
Subjective - Date & Time of Evaluation Date of Evaluation: 07/31/18 Time of Evaluation: 11:00 - Subjective Subjective: clinically same Objective - Vital Signs/Intake and Output Vital Signs (last 24 hours): Temp Pulse Resp BP Pulse Ox 98 F 80 20 100/60 97 07/31/18 15:32 07/31/18 15:32 07/31/18 15:32 07/31/18 15:32 07/31/18 15:32 Intake and Output: 07/31/18 08/01/18 18:59 06:59 Output Total 200 Balance -200 - Medications Medications: Current Medications Amlodipine Besylate (Norvasc) 10 mg PO DAILY [facility] Last Admin: 07/31/18 10:28 Dose: 10 mg Metoprolol Tartrate (Lopressor) 5 mg IVP Q6H PRN PRN Reason: Other Morphine Sulfate (Morphine) 1 mg IVP Q6H PRN PRN Reason: Pain, severe (8-10) Last Admin: 07/31/18 12:49 Dose: 1 mg Pantoprazole Sodium (Protonix Ec Tab) 40 mg PO BID [facility] Last Admin: 07/31/18 10:28 Dose: 40 mg Sucralfate (Carafate Oral Susp) 1 gm PO QID [facility] Last Admin: 07/31/18 18:51 Dose: 1 gm Tamsulosin HCl (Flomax) 0.4 mg PO DAILY [facility] Last Admin: 07/31/18 10:27 Dose: 0.4 mg - Labs Labs: 07/30/18 11:53 07/30/18 11:53
[2018-08-01] MEDS: Pantoprazole 40 mg EC Tab PO SCH ×2 (10:43→17:12)
[2018-08-01] MEDS: Sucralfate 1 gm/10 ml Oral Susp UD PO SCH ×4 (10:44→21:07)
--- NOTE | 2018-08-01 20:43 | CP.PCM.PN ---
Subjective - Date & Time of Evaluation Date of Evaluation: 08/01/18 Time of Evaluation: 09:45 - Subjective Subjective: clinically same Objective - Vital Signs/Intake and Output Vital Signs (last 24 hours): Temp Pulse Resp BP Pulse Ox 98.3 F 64 20 127/66 98 08/01/18 15:00 08/01/18 15:00 08/01/18 15:00 08/01/18 15:00 08/01/18 15:00 - Medications Medications: Current Medications Amlodipine Besylate (Norvasc) 10 mg PO DAILY [facility] Last Admin: 08/01/18 10:43 Dose: 10 mg Metoprolol Tartrate (Lopressor) 5 mg IVP Q6H PRN PRN Reason: Other Morphine Sulfate (Morphine) 1 mg IVP Q6H PRN PRN Reason: Pain, severe (8-10) Last Admin: 08/01/18 13:13 Dose: 1 mg Pantoprazole Sodium (Protonix Ec Tab) 40 mg PO BID [facility] Last Admin: 08/01/18 17:12 Dose: 40 mg Sucralfate (Carafate Oral Susp) 1 gm PO QID [facility] Last Admin: 08/01/18 17:12 Dose: 1 gm Tamsulosin HCl (Flomax) 0.4 mg PO DAILY [facility] Last Admin: 08/01/18 10:43 Dose: 0.4 mg - Labs Labs: 07/30/18 11:53 07/30/18 11:53
[2018-08-02 08:51] VITALS: TEMP 98.1; O2SAT 99
[2018-08-02 11:09] VITALS: BP 131/76; PULSE 60
[2018-08-02] MEDS: Pantoprazole 40 mg EC Tab PO SCH ×2 (11:09→17:21)
[2018-08-02] MEDS: Sucralfate 1 gm/10 ml Oral Susp UD PO SCH ×3 (11:09→17:22)
[2018-08-02 11:37] LABS: BASO # 0.1 K/uL (0.0-0.2); BASO % 1.2 % (0.0-2.0); EOS # 0.2 K/uL (0.0-0.7); EOS % 4.2 % (0.0-4.0); HEMOGLOBIN 10.1 g/dL (12.0-18.0); LYMPH % 22.3 % (20.0-40.0); MEAN CELL VOLUME 83.1 fL (80.0-94.0); MEAN CORPUSCULAR HEMOGLOBIN 27.1 pg (27.0-31.0); MEAN CORPUSCULAR HGB CONC 32.6 g/dL (33.0-37.0); MEAN PLATELET VOLUME 8.7 fL (7.2-11.7); MONO # 0.3 K/uL (0.0-0.8); NEUT % 66.3 % (50.0-75.0); RBC 3.74 Mil/uL (4.40-5.90); RED CELL DISTRIBUTION WIDTH 17.3 % (11.5-14.5); WHITE BLOOD COUNT 4.5 K/uL (4.8-10.8)
[2018-08-02 12:05] LABS: ALB/GLOB RATIO 1.4 (1.0-2.1); ALBUMIN 3.9 g/dL (3.5-5.0); ALT/SGPT 32 U/L (21-72); AST/SGOT 30 U/L (17-59); BLOOD UREA NITROGEN 26 mg/dL (9-20); GFR NON-AFRICAN AMERICAN > 60
--- NOTE | 2018-08-02 14:06 | CP.PCM.PN ---
Subjective - Date & Time of Evaluation Date of Evaluation: 08/02/18 Time of Evaluation: 14:04 - Subjective Subjective: Patient seen and examined at bedside. No overnight events reported. Patient denies any fevers, chills, lightheadedness, chest pain, SOB, or urinary symptoms. Admits to normal color stool and abdominal pain is improving. He is tolerating his diet. Objective - Vital Signs/Intake and Output Vital Signs (last 24 hours): Temp Pulse Resp BP Pulse Ox 98.1 F 60 20 131/76 99 08/02/18 08:00 08/02/18 11:08 08/02/18 08:00 08/02/18 11:08 08/02/18 08:00 Intake and Output: 08/02/18 08/02/18 06:59 18:59 Output Total 600 Balance -600 - Medications Medications: Current Medications Amlodipine Besylate (Norvasc) 10 mg PO DAILY [facility] Last Admin: 08/02/18 11:09 Dose: 10 mg Metoprolol Tartrate (Lopressor) 5 mg IVP Q6H PRN PRN Reason: Other Morphine Sulfate (Morphine) 1 mg IVP Q6H PRN PRN Reason: Pain, severe (8-10) Last Admin: 08/02/18 11:09 Dose: 1 mg Pantoprazole Sodium (Protonix Ec Tab) 40 mg PO BID [facility] Last Admin: 08/02/18 11:09 Dose: 40 mg Sucralfate (Carafate Oral Susp) 1 gm PO QID [facility] Last Admin: 08/02/18 13:29 Dose: 1 gm Tamsulosin HCl (Flomax) 0.4 mg PO DAILY [facility] Last Admin: 08/02/18 11:09 Dose: 0.4 mg - Labs Labs: 08/02/18 11:25 08/02/18 11:25 - Additional Findings Additional findings: Constitutional Appears: No Acute Distress - Head Exam Head Exam: ATRAUMATIC, NORMAL INSPECTION, NORMOCEPHALIC - Eye Exam Eye Exam: EOMI, Normal appearance - ENT Exam ENT Exam: Mucous Membranes Moist - Respiratory Exam Respiratory Exam: Clear to Ausculation Bilateral. absent: Accessory Muscle Use - Cardiovascular Exam Cardiovascular Exam: +S1, +S2 - GI/Abdominal Exam GI & Abdominal Exam: Guarding (Left Sided), Soft, Tenderness (LUQ, LLQ), Normal Bowel Sounds. absent: Distended, Firm, Hernia, Mass - Extremities Exam Extremities Exam: absent: Pedal Edema - Neurological Exam Neurological Exam: Alert, Awake, Oriented x3 Assessment and Plan - Assessment and Plan (Free Text) Assessment: 67 yo male, homeless, hx of gastro-colic fistula, severe obstructing PUD with gastric/duodenal ulcers noted in 06/2017 s/p possible gastrojejunostomy, HTN, DM, presenting for abd pain. Admitted for evaluation and treatment of GI Bleed. Plan: GI Bleed GI Consult (Dr. Astorga), recs appreciated Surgery Consult (Dr. Duong), Recs Appreciated. Abd/Pelvis CT (Admission): Diffuse gastric and small bowel wall thickening in the left upper abdomen suspicious for gastroenteritis. Contracted gallbladder demonstrated diffuse wall thickening without definite CT evidence of cholecystits. Otherwise no significant interval Change Angiography CT (07/23/18): Unremarkable. EGD(07/23/18): 1cm Hiatal Hernia, Bilroth II gastrojejunostomy. Anastomosis characterized by ulceration, nearly 3 cm in size with adherant clot present. Clot removed, with hemostasis during EGD -Continue Diabetic Diet. -F/U H.Pylori Ag -Meds: Sucralfate 1gram PO QID Protonix PO BID Hypertension Meds: Home Norvasc 10mg Daily. Hx of Diabetes: Sugars have been controlled this visit. Consider HgBA1C Proph DVT Proph Contraindicated SCD's Protonix Drip. Dispo: Per Dr. Montesinos, patient to be discharged today with continuation of home medication. He is to follow up with PCP within 7 days of discharge. Patient a lso needs to schedule an appointment with Dr. Astorga for outpatient endoscopy 2 months post discharge. Prescriptions are in chart. All management per Dr. Venus Whitlock. Franklyn Oreilly, PGY-2
--- NOTE | 2018-08-02 18:40 | CP.PCM.PN ---
Subjective - Date & Time of Evaluation Date of Evaluation: 08/02/18 Time of Evaluation: 10:30 - Subjective Subjective: clinically same Objective - Vital Signs/Intake and Output Vital Signs (last 24 hours): Temp Pulse Resp BP Pulse Ox 98.1 F 60 20 131/76 99 08/02/18 08:00 08/02/18 11:08 08/02/18 08:00 08/02/18 11:08 08/02/18 08:00 Intake and Output: 08/02/18 08/02/18 06:59 18:59 Intake Total 400 Output Total 600 Balance -600 400 - Labs Labs: 08/02/18 11:25 08/02/18 11:25
== END 2018-08-02 17:44 | disposition home or self-care (01) | DRG 393 ==
LOC: C.ER 17:05 → C.9E 21:15 → C.6T 21:38 → C.9I 07-23 11:08 → C.6T 07-29 14:22
PROVIDERS: ADMIT Internal Medicine Nephrology; ATTEND Internal Medicine Nephrology
PROC: 30233N1 Transfusion of Nonautologous Red Blood Cells into Peripheral Vein, Percutaneous Approach (ICD-10-PCS; 2018-07-22)
PROC: 3E0G8GC Introduction of Other Therapeutic Substance into Upper GI, Via Natural or Artificial Opening Endoscopic (ICD-10-PCS; 2018-07-23)
PROC: 0DC68ZZ Extirpation of Matter from Stomach, Via Natural or Artificial Opening Endoscopic (ICD-10-PCS; 2018-07-23)
PROC: 0W3P8ZZ Control Bleeding in Gastrointestinal Tract, Via Natural or Artificial Opening Endoscopic (ICD-10-PCS; principal; 2018-07-23 11:45)
DX: K91.89 Other postprocedural complications and disorders of digestive system (principal); K28.0 Acute gastrojejunal ulcer with hemorrhage; K28.4 Chronic or unspecified gastrojejunal ulcer with hemorrhage; D62 Acute posthemorrhagic anemia; I10 Essential (primary) hypertension; Z91.14 Patient's other noncompliance with medication regimen; E11.9 Type 2 diabetes mellitus without complications; G89.29 Other chronic pain; R26.81 Unsteadiness on feet; Z59.0 Homelessness; Y83.2 Surgical operation with anastomosis, bypass or graft as the cause of abnormal reaction of the patient, or of later complication, without mention of misadventure at the time of the procedure

== ENCOUNTER 2018-09-01 22:11 | Emergency (ER) | payer MEDICARE ==
[2018-09-01 22:11] VITALS: BMI 24.0
[2018-09-01 22:19] VITALS: TEMP 98.8; O2SAT 98
[2018-09-01] MEDS ORDERED: Sodium Chloride 0.9% 1,000 ML IV ONE (23:08)
[2018-09-01] MEDS ORDERED: Iohexol 240 (50 ml) PO STA (23:08)
--- NOTE | 2018-09-01 23:18 | C.PDOC ---
History Of Present Illness 67 year old male with PMHx of multiple abdominal surgeries, etiologies unknown, gastrojejunostomy, ulcers, colostomy that was then reversed, and kidney surgery presents to the ER with abdominal discomfort with loose watery stools and vomiting that began today. Patient has had multiple visits in the past for the same. Denies hematemesis, fever or chills. Time Seen by Provider: 09/01/18 22:55 Chief Complaint (Nursing): Abdominal Pain History Per: Patient History/Exam Limitations: no limitations Onset/Duration Of Symptoms: Hrs Current Symptoms Are (Timing): Still Present Radiation Of Pain To:: None Quality Of Discomfort: Unable To Describe Associated Symptoms: Vomiting, Diarrhea. denies: Fever, Chills Exacerbating Factors: None Alleviating Factors: None Recent travel outside of the [place]: No Past Medical History Reviewed: Historical Data, Nursing Documentation, Vital Signs Vital Signs: Last Vital Signs Temp 98.8 F 09/01/18 22:18 Pulse 80 09/01/18 22:18 Resp 17 09/01/18 22:18 BP 202/107 H 09/01/18 22:18 Pulse Ox 98 09/01/18 22:18 - Medical History PMH: HTN Denies: Chronic Kidney Disease Surgical History: Endoscopy, Hernia Repair - [facility] Procedures CONTROL BLEEDING IN GASTROINTESTINAL TRACT, ENDO (07/22/18) EXCISION OF JEJUNUM, ENDO, DIAGN (01/28/18) EXCISION OF LARGE INTESTINE, ENDO, DIAGN (07/05/17) EXCISION OF SMALL INTESTINE, ENDO, DIAGN (07/05/17) EXCISION OF STOMACH, ENDO, DIAGN (01/28/18) EXTIRPATION OF MATTER FROM STOMACH, ENDO (07/22/18) INTRODUCTION OF OTHER THERAPEUTIC SUBSTANCE INTO UP GI, ENDO (07/22/18) TRANSFUSE NONAUT RED BLOOD CELLS IN PERIPH VEIN, PERC (07/22/18) Family History: States: Unknown Family Hx - Social History Hx Alcohol Use: No Hx Substance Use: No (patient denies) - Immunization History Hx Tetanus Toxoid Vaccination: Yes Hx Influenza Vaccination: Yes Hx Pneumococcal Vaccination: Yes Review Of Systems Constitutional: Negative for: Fever, Chills Cardiovascular: Negative for: Chest Pain, Palpitations Respiratory: Negative for: Cough, Shortness of Breath Gastrointestinal: Positive for: Vomiting, Abdominal Pain, Other (Loose watery stools) Neurological: Negative for: Weakness, Numbness Physical Exam - Physical Exam Appears: Non-toxic Skin: Warm, Dry Head: Atraumatic, Normacephalic Eye(s): bilateral: Normal Inspection Oral Mucosa: Moist Neck: Normal, Supple Chest: Symmetrical, No Tenderness Cardiovascular: Rhythm Regular Respiratory: Normal Breath Sounds, No Rales, No Rhonchi, No Wheezing Gastrointestinal/Abdominal: Bowel Sounds (normal), Other (Rigid, diffusely tender, old surgical scars) Back: No CVA Tenderness Neurological/Psych: Oriented x3, Normal Speech ED Course And Treatment - Laboratory Results Result Diagrams: 09/01/18 23:08 09/01/18 23:08 O2 Sat by Pulse Oximetry: 98 (room air) Pulse Ox Interpretation: Normal Progress Note: CT abd/pel, blood work, and urinalysis ordered. Morphine, protonix, zofran, and IV fluids administered. Disposition - Disposition Disposition Time: 00:31 Condition: STABLE Forms: [facility] (Frisian) - Clinical Impression Clinical Impression: Abdominal discomfort, Vomiting, Diarrhea - Scribe Statement The provider has reviewed the documentation as recorded by the Scribe Jackson Rashid All medical record entries made by the Scribe were at my direction and personally dictated by me. I have reviewed the chart and agree that the record accurately reflects my personal performance of the history, physical exam, medical decision making, and the department course for this patient. I have also personally directed, reviewed, and agree with the discharge instructions and disposition. Physician Patient Turnover Patient Signed Over To: Althea Bradford Handoff Comments: Pending CT scan abdomen and pelvis
[2018-09-01 23:33] LABS: BASO # 0.1 K/uL (0.0-0.2); BASO % 1.3 % (0.0-2.0); EOS # 0.1 K/uL (0.0-0.7); EOS % 2.6 % (0.0-4.0); HEMOGLOBIN 10.1 g/dL (12.0-18.0); LYMPH # 1.4 K/uL (1.0-4.3); LYMPH % 25.4 % (20.0-40.0); MEAN CELL VOLUME 79.7 fL (80.0-94.0); MEAN CORPUSCULAR HEMOGLOBIN 25.8 pg (27.0-31.0); MEAN CORPUSCULAR HGB CONC 32.4 g/dL (33.0-37.0); MEAN PLATELET VOLUME 8.6 fL (7.2-11.7); MONO # 0.4 K/uL (0.0-0.8); MONO % 6.9 % (0.0-10.0); NEUT # 3.4 K/uL (1.8-7.0); NEUT % 63.8 % (50.0-75.0); RBC 3.91 Mil/uL (4.40-5.90); RED CELL DISTRIBUTION WIDTH 18.7 % (11.5-14.5); WHITE BLOOD COUNT 5.3 K/uL (4.8-10.8)
[2018-09-01 23:47] LABS: ALB/GLOB RATIO 1.6 (1.0-2.1); ALBUMIN 4.5 g/dL (3.5-5.0); ALT/SGPT 13 U/L (21-72); AST/SGOT 26 U/L (17-59); BLOOD UREA NITROGEN 14 mg/dL (9-20); CALCIUM 9.3 mg/dl (8.6-10.4); GFR NON-AFRICAN AMERICAN > 60; LIPASE 284 U/L (23-300)
[2018-09-01] MEDS ORDERED: Iohexol 240 (50 ml) ONE (23:54)
[2018-09-02 00:13] LABS: URINE BILIRUBIN NEGATIVE (NEGATIVE); URINE BLOOD NEGATIVE (NEGATIVE); URINE CLARITY Clear (Clear); URINE COLOR Yellow (YELLOW); URINE GLUCOSE (UA) NORMAL (Normal); URINE LEUKOCYTE ESTERASE NEG Leu/uL (Negative); URINE PROTEIN 1+ mg/dL (NEGATIVE); URINE UROBILINOGEN NORMAL mg/dL (0.2-1.0)
[2018-09-02] MEDS ORDERED: Iodixanol 320 MG/ML 100 ML BOTTLE IV ONE (01:13)
[2018-09-02 05:55] VITALS: BP 166/90; PULSE 82; RESP 20
--- NOTE | 2018-09-02 10:17 | CT ---
Date of service: 09/02/2018 PROCEDURE: CT Abdomen and Pelvis with contrast HISTORY: abd pain COMPARISON: Abdomen pelvis CT with contrast 07/24/2018. TECHNIQUE: Following the intravenous administration of iodinated contrast material, a CT examination of the abdomen and pelvis was performed from the domes of the diaphragms to the symphysis pubis with reformatted datasets provided in axial, sagittal and coronal planes. Oral contrast was not administered as per referring physician request. Contrast dose: Visipaque 320, 100 cc Radiation dose: Total exam DLP = 449.98 mGy-cm. This CT exam was performed using one or more of the following dose reduction techniques: Automated exposure control, adjustment of the mA and/or kV according to patient size, and/or use of iterative reconstruction technique. FINDINGS: LOWER THORAX: Small bulla is again seen at the lower lobe laterally approaching the right costophrenic sulcus. Trace bilateral dependent atelectasis again identified. No pleural or pericardial effusion. LIVER: Unremarkable. No gross lesion or ductal dilatation. GALLBLADDER AND BILE DUCTS: Unremarkable. PANCREAS: Unremarkable. No gross lesion or ductal dilatation. SPLEEN: Unremarkable. ADRENALS: Unremarkable. No mass. KIDNEYS AND URETERS: No radiodense urolithiasis, perinephric fluid collection or obstructive uropathy is appreciate bilaterally. The bilateral ureters appear normal caliber overall. A 3.1 cm simple cysts identified at the lower pole right kidney once again with the midpole left kidney measuring 3.5 cm. Both cysts are not significantly changed in size or appearance. VASCULATURE: Unremarkable. No aortic aneurysm. No aortic atherosclerotic calcification or mural plaque present. BOWEL: Evaluation the stomach is compromised by collapse. No large or small bowel obstruction is identified. Moderate retained fecal material scattered throughout various large-bowel segments.. The distal rectosigmoid is collapsed limiting evaluation the wall. No Belinda colic or perirectal reactive changes are identified that would indicate segmental colitis however clinical correlation is recommended here. APPENDIX: Appendix not identified. There is no CT evidence of appendicitis. PERITONEUM: Unremarkable. No free fluid. No free air. LYMPH NODES: Unremarkable. No enlarged lymph nodes. BLADDER: Bladder is not fully distended and mural thickening is suggested but could be a function of underdistention. Consider potential cystitis. No radiodense calculi in the lumen. REPRODUCTIVE: Mildly enlarged prostate gland. BONES: No acute fracture. OTHER FINDINGS: None. IMPRESSION: 1. Collapsed rectosigmoid limits evaluation of the cortez which appears somewhat prominent but do not exhibit overt acute inflammatory changes. Clinically correlate nevertheless as segmental colitis difficult to completely exclude here. 2. Collapsed urinary bladder limits evaluation of the wall. Cystitis not excluded. 3. Simple bilateral renal cysts not significantly changed in appearance and size. 4. Nonspecific prominence of the pancreatic duct is reiterated up to 5 mm proximally but taper to a smaller caliber through the body and tail. Stable appearance without overt pancreatic mass appreciable. No choledocholithiasis appreciable at this time. Concordant preliminary report from [facility], 09/02/2017, 2:55 a.m..
== END 2018-09-02 05:52 | disposition home or self-care (01) ==
LOC: C.ER 22:11
DX: R10.9 Unspecified abdominal pain (principal); R11.10 Vomiting, unspecified; R19.7 Diarrhea, unspecified; I10 Essential (primary) hypertension
CPT/HCPCS: 74177; 80053; 81001; 83690; 85025; 96374; 96375; 99285; C9113; J2270; J2405; J7030; Q9966; Q9967